=== PATIENT | male | born 1955 | race Caucasian/White ===

== ENCOUNTER 2017-04-23 10:11 | Outpatient (RCR) | payer OTHER, MEDICARE, SELFPAY ==
[2017-04-23 12:12] LABS: Absolute Lymphocyte Count 1.47 X10^3/ul (0.83-4.51); Basophil# 0.01 X10^3/uL; Basophil% 0.2 % (0-1); Eosinophil# 0.12 X10^3/uL; Eosinophils% 2.2 % (0-5); Hematocrit 44.1 % (40-54); Lymphocyte # 1.47 X10^3/ul (4.0); Lymphocyte % 27.4 % (19-41); Mean Corp Hgb Conc 31.7 g/gl (32-36); Mean Corpuscular Hgb 31.6 pg (27.0-32.0); Mean Corpuscular Volume 99.5 fL (80-94); Mean Platelet Vol. 10.4 fl (6.2-12.0); Monocyte# 0.75 X10^3/uL; Platelet Count 146 K/mm3 (150-450); RBC Distribution Width CV 13.2 % (11.6-14.6); RBC Distribution Width SD 48.1 fl (35.1-43.9); Red Blood Count 4.43 M/mm3 (4.6-6.2); White Blood Count 5.4 K/mm3 (4.4-11.0)
[2017-04-23 12:20] LABS: POSITIVE COUNT NO; POSITIVE DIFFERENTIAL NO; POSITIVE MORPHOLOGY NO
[2017-04-23 12:53] LABS: ALB/GLOB Ratio 1.1 RATIO (0.9-2.4); AST(SGOT) 48 U/L (15-37); Alanine Aminotransfer ALT/SGPT 72 U/L (16-61); Albumin, Serum 3.5 g/dL (3.2-5.0); Alkaline Phosphatase 76 U/L (45-117); Anion Gap 9 (5-15); BUN 16 mg/dL (7-18); Calcium,Total 8.5 mg/dL (8.5-10.1); Chloride 109 mmol/L (98-107); EST Glomerular Filtration Rate 81 mL/min (>60); Est Glom Filt Rate - Afr Amer 98 mL/min (>60); Globulin 3.3 g/dL (2.2-4.2); Glucose 91 mg/dL (74-106); Potassium 4.4 mmol/L (3.5-5.1); Protein, Total 6.8 g/dL (6.4-8.2); Sodium Level 141 mmol/L (136-145)
== END 2017-04-23 11:00 | disposition home or self-care (01) ==
LOC: MTLAB 10:11
PROVIDERS: Family Provider Family Medicine; PCP Family Medicine
DX: C83.10 Mantle cell lymphoma, unspecified site (principal)
CPT/HCPCS: 36415; 80053; 85025

== ENCOUNTER → 2018-01-26 08:20 | Outpatient (CLI) | payer OTHER, MEDICARE, SELFPAY ==
[2018-01-26 10:49] LABS: Absolute Lymphocyte Count 1.74 X10^3/ul (0.83-4.51); Basophil# 0.02 X10^3/uL; Basophil% 0.4 % (0-1); Eosinophil# 0.08 X10^3/uL; Eosinophils% 1.4 % (0-5); Hematocrit 43.1 % (40-54); Hemoglobin 14.6 g/dl (13.0-16.5); Lymphocyte # 1.74 X10^3/ul (4.0); Lymphocyte % 31.5 % (19-41); Mean Corp Hgb Conc 33.9 g/gl (32-36); Mean Corpuscular Hgb 33.1 pg (27.0-32.0); Mean Corpuscular Volume 97.7 fL (80-94); Mean Platelet Vol. 10.4 fl (6.2-12.0); Monocyte# 0.63 X10^3/uL; Monocyte% 11.4 % (0-10); Neutrophil # 3.04 X10^3/uL (2.7-7.7); Neutrophil % 54.9 % (47-70); Platelet Count 147 K/mm3 (150-450); RBC Distribution Width CV 12.6 % (11.6-14.6); RBC Distribution Width SD 45.3 fl (35.1-43.9); Red Blood Count 4.41 M/mm3 (4.6-6.2); White Blood Count 5.5 K/mm3 (4.4-11.0)
[2018-01-26 10:54] LABS: POSITIVE COUNT NO; POSITIVE DIFFERENTIAL NO; POSITIVE MORPHOLOGY NO
[2018-01-26 11:14] LABS: ALB/GLOB Ratio 1.1 RATIO (0.9-2.4); AST(SGOT) 48 U/L (15-37); Alanine Aminotransfer ALT/SGPT 82 U/L (16-61); Albumin, Serum 3.6 g/dL (3.2-5.0); Alkaline Phosphatase 66 U/L (45-117); Anion Gap 7 (5-15); BUN 13 mg/dL (7-18); BUN/Creat Ratio 10.8 RATIO (10-20); Calcium,Total 8.6 mg/dL (8.5-10.1); Chloride 108 mmol/L (98-107); Cholesterol 156 mg/dL (200); EST Glomerular Filtration Rate 66 mL/min (>60); Est Glom Filt Rate - Afr Amer 79 mL/min (>60); Globulin 3.4 g/dL (2.2-4.2); Glucose 91 mg/dL (74-106); High Density Lipoprotein 30 mg/dL; PSA,Total - Annual Screen 0.46 ng/mL (0.00-4.00); Potassium 4.2 mmol/L (3.5-5.1); Sodium Level 140 mmol/L (136-145); Triglycerides 175 mg/dL; Very Low Density Lipoprotein 35 mg/dL (5-40)
--- OUTSIDE RECORDS SUMMARY | 2018-03-14 03:32 | XMS RPT_ITS ---
:1955 Author Organization OH[facility] Care Team Providers Name Role Phone Veto Lopez Attending Unavailable Veto Lopez Referring Unavailable Veto Lopez Primary Care Unavailable HOMERO NARVAEZ Attending Unavailable HOMERO NARVAEZ Referring Unavailable David Lopez Primary Care Unavailable HOMERO NARVAEZ Attending Unavailable HOMERO NARVAEZ Referring Unavailable David Lopez Primary Care Unavailable PROBLEMS PROBLEMS DATE TYPE CONDITION / CODE ATTENDING STATUS SOURCE 01/26/2018 Unknown Z00.00 - Veto Lopez Active [place] Encounter for [facility] medical Repository examination without abnormal findings / Z00.00(ICD-10) 01/26/2018 Unknown Z12.5 - Encounter Veto Lopez Active [place] for screening for [facility] neoplasm of Repository prostate / Z12.5(ICD-10) PROCEDURES PROCEDURES No Procedure Records FoundRESULTS RESULTS CBC W/DIFF, AUTOMATED Collected: 01/26/2018 Status: F Source: [place] 8:30 AM [facility] [place] CODE TESTS RESULT OUT OF RANGE REFERENCE UNITS LAB L100.1000 4.4-11.0 K/mm3 Normal WBC 5.5 LAB L100.1200 4.6-6.2 M/mm3 Low RBC 4.41 LAB L100.1300 13.0-16.5 g/dl Normal HGB 14.6 LAB L100.1400 40-54 % Normal HCT 43.1 LAB L100.1500 80-94 fL High MCV 97.7 LAB L100.1600 27.0-32.0 pg High MCH 33.1 LAB L100.1700 32-36 g/gl Normal MCHC 33.9 LAB L100.1810 11.6-14.6 % Normal RDW CV 12.6 LAB L100.1820 35.1-43.9 fl High RDW SD 45.3 LAB L100.1900 150-450 K/mm3 Low PLT 147 LAB L100.2000 6.2-12.0 fl Normal MPV 10.4 LAB L100.2100 47-70 % Normal NEUT% 54.9 LAB L100.2200 19-41 % Normal LY% 31.5 LAB L100.2300 0-10 % High MONO% 11.4 LAB L100.2400 0-5 % Normal EO% 1.4 LAB L100.2500 0-1 % Normal BASO% 0.4 LAB L100.2550 0.0-0.9 % Normal IM GRAN % 0.400 Result Comment: IG% - Immature Granulocytes (promyelocytes, myelocytes and metamyelocytes) > 1% indicates that a LEFT SHIFT is Present. LAB L100.2620 2.0-7.7 X10 3/uL Normal Absolute Neut 3.0 LAB L100.2720 0.83-4.51 X10 3/ul Normal Absolute Lymph 1.74 Performed By: #### L100.0100 #### [facility] [address] [place], [address] COMPREHENSIVE METABOLIC Collected: 01/26/2018 Status: F Source: [facility] 8:30 AM [facility] [place] CODE TESTS RESULT OUT OF RANGE REFERENCE UNITS LAB L501.0100 74-106 mg/dL Normal GLU 91 Result Comment: Please note revised GLUCOSE reference range effective 2017. LAB L501.1000 7-18 mg/dL Normal BUN 13 LAB L501.1100 0.70-1.30 mg/dL Normal CREAT,SERUM 1.20 Result Comment: The validity of the calculated GFR AND GFRAA in patients over 70 years has not been determined. Clinical correlation is essential. LAB L501.1110 >60 mL/min Normal EST GFR 66 Result Comment: Non- GFR Calc LAB L501.1115 >60 mL/min Normal EST GFR - AA 79 Result Comment: GFR Calc LAB L501.1300 10-20 RATIO Normal BUN/CRE 10.8 LAB L501.1500 6.4-8.2 g/dL T Normal PROT 7.0 LAB L501.1800 3.2-5.0 g/dL Normal ALB 3.6 LAB L501.1950 2.2-4.2 g/dL Normal GLOB 3.4 LAB L501.2000 0.9-2.4 RATIO Normal A/G 1.1 LAB L501.2200 8.5-10.1 mg/dL CA Normal 8.6 LAB L501.4100 15-37 U/L High AST 48 LAB L501.4305 45-117 U/L Normal ALK P 66 LAB L501.4405 16-61 U/L High ALT 82 LAB L501.4600 0.20-1.00 mg/dL T Normal BILI 0.70 LAB L501.5300 136-145 mmol/L NA Normal 140 LAB L501.5600 3.5-5.1 mmol/L K Normal 4.2 LAB L501.5900 98-107 mmol/L High CL 108 LAB L501.6100 21.0-32.0 mmol/L Normal CO2 25.0 LAB L501.6200 5-15 Normal GAP 7 Performed By: #### L500.4050, L500.4100, L501.9910 #### [facility] [address] [place], [address] LIPID PROFILE Collected: 01/26/2018 Status: F Source: [place] 8:30 AM [facility] [place] CODE TESTS RESULT OUT OF RANGE REFERENCE UNITS LAB L501.4900 200 mg/dL Normal CHOL 156 Result Comment: <200 mg/dL Desirable 200-240 mg/dL Borderline >240 mg/dL High Risk LAB L501.5000 mg/dL Normal TRIG 175 Result Comment: The drugs N-Acetylcysteine and Metamizole may falsely depress this assay. Serum Triglycerides Reference Interval Normal <150 mg/dL Borderline high 150 - 199 mg/dL High 200 - 499 mg/dL Very High > or = 500 mg/dL LAB L501.6400 mg/dL Low HDL 30 Result Comment: The drugs N-Acetylcysteine and Metamizole may falsely depress this assay. Reference Range HDL <40 mg/dL Low HDL Cholesterol HDL >or= 60 mg/dL High HDL Cholesterol LAB L501.6500 0-130 mg/dL Normal LDL 91 LAB L501.6600 5-40 mg/dL Normal VLDL 35 Performed By: #### L500.4050, L500.4100, L501.9910 #### [facility] [address] [place], [address] PSA,TOTAL - ANNUAL Collected: 01/26/2018 Status: F Source: [place] SCRE[facility] 8:30 AM [facility] [place] CODE TESTS RESULT OUT OF RANGE REFERENCE UNITS LAB L501.9910 0.00-4.00 ng/mL Normal PSA,TOT 0.46 SCREEN Result Comment: This test was performed using the TPSA assay method for the [employer] chemistry system. Values obtained with different assay methods cannot be used interchangably. When changing PSA assays in the course of monitoring a patient, additional sequential testing should be carried out to confirm baseline values. Performed By: #### L500.4050, L500.4100, L501.9910 #### [facility] [address] [place], [address] CBC W/DIFF, AUTOMATED Collected: 04/23/2017 Status: F Source: [place] 10:20 AM [facility] [place] CODE TESTS RESULT OUT OF RANGE REFERENCE UNITS LAB L100.1000 4.4-11.0 K/mm3 Normal WBC 5.4 LAB L100.1200 4.6-6.2 M/mm3 Low RBC 4.43 LAB L100.1300 13.0-16.5 g/dl Normal HGB 14.0 LAB L100.1400 40-54 % Normal HCT 44.1 LAB L100.1500 80-94 fL High MCV 99.5 LAB L100.1600 27.0-32.0 pg Normal MCH 31.6 LAB L100.1700 32-36 g/gl Low MCHC 31.7 LAB L100.1810 11.6-14.6 % Normal RDW CV 13.2 LAB L100.1820 35.1-43.9 fl High RDW SD 48.1 LAB L100.1900 150-450 K/mm3 Low PLT 146 LAB L100.2000 6.2-12.0 fl Normal MPV 10.4 LAB L100.2100 47-70 % Normal NEUT% 56.0 LAB L100.2200 19-41 % Normal LY% 27.4 LAB L100.2300 0-10 % High MONO% 14.0 LAB L100.2400 0-5 % Normal EO% 2.2 LAB L100.2500 0-1 % Normal BASO% 0.2 LAB L100.2550 0.0-0.9 % Normal IM GRAN % 0.200 Result Comment: IG% - Immature Granulocytes (promyelocytes, myelocytes and metamyelocytes) > 1% indicates that a LEFT SHIFT is Present. LAB L100.2620 2.0-7.7 X10 3/uL Normal Absolute Neut 3.0 LAB L100.2720 0.83-4.51 X10 3/ul Normal Absolute Lymph 1.47 Performed By: #### L100.0100 #### [facility] [address] [place], [address] COMPREHENSIVE METABOLIC Collected: 04/23/2017 Status: F Source: [facility] 10:20 AM [facility] [place] CODE TESTS RESULT OUT OF RANGE REFERENCE UNITS LAB L501.0100 74-106 mg/dL Normal GLU 91 Result Comment: Please note revised GLUCOSE reference range effective 2017. LAB L501.1000 7-18 mg/dL Normal BUN 16 LAB L501.1100 0.70-1.30 mg/dL Normal CREAT,SERUM 1.00 Result Comment: The validity of the calculated GFR AND GFRAA in patients over 70 years has not been determined. Clinical correlation is essential. LAB L501.1110 >60 mL/min Normal EST GFR 81 Result Comment: Non- GFR Calc LAB L501.1115 >60 mL/min Normal EST GFR - AA 98 Result Comment: GFR Calc LAB L501.1300 10-20 RATIO Normal BUN/CRE 16.0 LAB L501.1500 6.4-8.2 g/dL T Normal PROT 6.8 LAB L501.1800 3.2-5.0 g/dL Normal ALB 3.5 LAB L501.1950 2.2-4.2 g/dL Normal GLOB 3.3 LAB L501.2000 0.9-2.4 RATIO Normal A/G 1.1 LAB L501.2200 8.5-10.1 mg/dL CA Normal 8.5 LAB L501.4100 15-37 U/L High AST 48 LAB L501.4305 45-117 U/L Normal ALK P 76 LAB L501.4405 16-61 U/L High ALT 72 Result Comment: Please note revised ALT reference range effective 2017. LAB L501.4600 0.20-1.00 mg/dL Normal T BILI 0.60 LAB L501.5300 136-145 mmol/L Normal NA 141 LAB L501.5600 3.5-5.1 mmol/L Normal K 4.4 LAB L501.5900 98-107 mmol/L High CL 109 LAB L501.6100 21.0-32.0 mmol/L Normal CO2 23.0 LAB L501.6200 5-15 Normal GAP 9 Performed By: #### L500.4050 #### [facility] [address] [place], [address] ALLERGIES ALLERGIES DATE TYPE / CODE NAME / CODE REACTION SEVERITY SOURCE 01/01/2016 Drug adhesive Rash Unknown [facility] Allergy/416 tape/[id number] Hospital 495888(SN (RXNORM) Repository ED CT) 06/12/2015 Drug aspirin/[id number] Upset Stomach Unknown [facility] Allergy/416 587(RXNO) [facility] 042610(SNOM Repository ED CT) 06/12/2015 Drug amoxicillin/F00 Rash Unknown [facility] Allergy/789 9097139(RXNO) [facility] 169539(SNOM Repository ED CT) 06/12/2015 Drug levofloxacin/F0 Rash Unknown [facility] Allergy/416 [id number]([facility] 875797(SNOM ) Repository ED CT) 02/28/2013 Drug Penicillins/F00 Upset Stomach Unknown [facility] Allergy/205 1537063([facility] 257003(SN Repository ED CT) ENCOUNTERS ENCOUNTERS ADMIT/DISCHARGE ACCOUNT ADMITTING ENCOUNTER LOCATION SOURCE NUMBER CLASS 01/26/[id number] ing:MTLAB Repository 05/17/2017 [id number] Ambulatory [place] [place] [facility] ing:MTLAB Repository 04/23/2017/ [id number] Ambulatory [place] [facility] [place] [facility] [address] 8 [facility] ing:MTLAB Repository PAYERS PAYERS ENCOUNTER GUARANTOR PAYER SUBSCRIBER SOURCE 01/26/2018 EZRA A Primary PANDA R [place] [id number] Insurance:MEDICAL OSWALDDOB: [facility] [id number] Number: Repository [address]Jvb: 330 [id number] [phone] (HP) Date:1340-91-06[address] [place] [id number]: 01/26/2018 Secondary EZRA A [place] Insurance:MEDICARE OSWALDDOB: [facility] [id number] Hospital Number: Repository [id number] Date:2018-01-26 01/26/2018 Tertiary NOT GIVENUNK [place] Insurance:SELF PAY [facility] Number: Effective Repository Date:2018-01-26 05/17/2017 Ezra A Primary PANDA R [place] [id number] Insurance:MEDICAL OSWALDDOB: [facility] [id number] Number: Repository [id number]: [id number] [phone] Date:[id number] () [address] [place] [phone]: 05/17/2017 Secondary Ezra A [place] Insurance:MEDICARE OswaldDOB: [facility] [id number] Hospital Number: Repository [id number] Date:2017-04-23 05/17/2017 Tertiary NOT GIVENUNK [place] Insurance:SELF PAY [facility] Number: Effective Repository Date:2017-05-17 04/23/2017 Ezra A Primary PANDA R [place] [id number] Insurance:MEDICAL OSWALDDOB: [facility] [id number] Number: Repository [id number]: [id number] [phone] Date:[id number] [address], [place] [address]IT: 04/23/2017 Secondary Ezra A [place] Insurance:MEDICARE OswaldDOB: [facility] [id number] Hospital Number: Repository [id number] Date:2017-04-23 04/23/2017 Tertiary NOT GIVENUNK [place] Insurance[facility]LF [facility] Effective Repository Date:2017-04-23
== END ==
PROVIDERS: Family Provider Family Medicine; PCP Family Medicine; Referring Provider Family Medicine; Visit Provider Family Medicine
DX: Z00.00 Encounter for general adult medical examination without abnormal findings (principal); Z12.5 Encounter for screening for malignant neoplasm of prostate
CPT/HCPCS: 36415; 80053; 80061; 84153; 85025; G0103

== ENCOUNTER 2018-08-12 16:44 | Observation (INO) | payer OTHER, MEDICARE, SELFPAY ==
[2018-08-12] VITALS (10 sets, daily range): BP systolic 150–185; BP diastolic 67–115; PULSE 86–111; RESP 16–19; TEMP 36.7–37.4; O2SAT 98–100; BMI 36.3; BMI 35.0
--- NOTE | 2018-08-12 16:46 | NURSING ---
NO OLD EKGS
--- NOTE | 2018-08-12 16:54 | EKG12_ITS ---
Test Reason : STROKE Blood Pressure : / mmHG Vent. Rate : 107 BPM Atrial Rate : 107 BPM P-R Int : 156 ms QRS Dur : 082 ms QT Int : 316 ms P-R-T Axes : 022 055 076 degrees QTc Int : 421 ms Sinus tachycardia Nonspecific ST and T wave abnormality Abnormal ECG Confirmed by CAROLINE HER, ALEXIS ([id number]), health editor TRIXIE RAMON ([id number]) on 08/15/2018 1:23:39 PM Referred By: GIUSEPPE Confirmed By:ALEXIS VELAZQUEZ MD
--- NOTE | 2018-08-12 16:54 | CT_ITS ---
STUDY: CT BRAIN WITHOUT CONTRAST REASON FOR EXAM: Male, 62 years old. Aphasia, dysarthria RADIATION DOSAGE (If Supplied By Facility): CTDIvol = ( 44.99 ) mGy, DLP = ( 880.47 ) mGycm TECHNIQUE: Transaxial CT imaging of the brain was performed without administration of intravenous contrast material. Individualized dose optimization techniques were used for this CT. COMPARISON: No relevant priors. FINDINGS: Normal soft tissue structures. Normal calvarium. Normal size ventricles and extra-axial spaces for the patient's age. Normal white matter tracts of the cerebral hemispheres. Normal basal ganglia and thalami. Normal brainstem. Normal cerebellum. There is no intracranial hemorrhage. There are no findings of an acute ischemic infarction. Normal visualized paranasal sinuses. CT/Brain/Head without Contrast IMPRESSION: Normal unenhanced CT scan of the brain. N.B. : The above information has been verbally conveyed by Dg Delaney MD to Ijeoma Restrepo on 08/12/2018 17:18:25 (ET). Electronically Signed: Dg Delaney MD at 17:16 EDT Tel , Service support ,
--- NOTE | 2018-08-12 16:59 | NURSING ---
STROKE ALERT CALLED
--- NOTE | 2018-08-12 17:06 | RAD_ITS ---
STUDY: X-RAY CHEST REASON FOR EXAM: Male, 62 years old. Weakness TECHNIQUE: Single AP portable view of the chest. COMPARISON: 08/23/2015 FINDINGS: The lungs are clear and expanded. There is no demonstrated pleural abnormality. Normal size heart. Normal mediastinum and hollie. Normal visualized pulmonary arteries. Normal visualized aortic arch and descending thoracic aorta. Normal visualized thoracic spine. Normal visualized ribs, clavicles, and shoulders. There is no demonstrated abnormality of the visualized soft tissue structures of the upper abdomen. RAD/Chest 1 View IMPRESSION: Normal x-ray examination of the chest. Electronically Signed: Dg Delaney MD at 17:21 EDT Tel , Service support ,
[2018-08-12] MEDS: 0.9% Normal Saline 1,000 ML 100 ML IV ×2 (17:21→20:36)
[2018-08-12 17:30] LABS: Absolute Lymphocyte Count 1.78 X10^3/ul (0.83-4.51); Absolute Neutrophil Count 4.9 X10^3/uL (2.0-7.7); Basophil# 0.03 X10^3/uL; Basophil% 0.4 % (0-1); Eosinophil# 0.27 X10^3/uL; Eosinophils% 3.5 % (0-5); Hematocrit 44.6 % (40-54); Hemoglobin 14.4 g/dl (13.0-16.5); Lymphocyte # 1.78 X10^3/ul (4.0); Mean Corp Hgb Conc 32.3 g/gl (32-36); Mean Corpuscular Hgb 30.9 pg (27.0-32.0); Mean Corpuscular Volume 95.7 fL (80-94); Mean Platelet Vol. 9.6 fl (6.2-12.0); Monocyte# 0.71 X10^3/uL; Monocyte% 9.2 % (0-10); Neutrophil # 4.92 X10^3/uL (2.7-7.7); Neutrophil % 63.6 % (47-70); Platelet Count 182 K/mm3 (150-450); RBC Distribution Width CV 13.7 % (11.6-14.6); Red Blood Count 4.66 M/mm3 (4.6-6.2); White Blood Count 7.7 K/mm3 (4.4-11.0)
[2018-08-12 17:31] LABS: POSITIVE COUNT NO; POSITIVE DIFFERENTIAL NO; POSITIVE MORPHOLOGY NO
[2018-08-12 17:33] LABS: International Normalized Ratio 1.2; Prothrombin Time (Protime)PT. 14.7 SECONDS (11.7-14.9)
[2018-08-12 17:34] LABS: Partial Thromboplast Time 28.1 Seconds (24.1-36.2)
[2018-08-12 17:43] LABS: Anion Gap 5 (5-15); BUN 15 mg/dL (7-18); BUN/Creat Ratio 10.3 RATIO (10-20); Calcium,Total 9.1 mg/dL (8.5-10.1); Chloride 106 mmol/L (98-107); Creatinine, Serum 1.45 mg/dL (0.70-1.30); EST Glomerular Filtration Rate 53 mL/min (>60); Est Glom Filt Rate - Afr Amer 64 mL/min (>60); Estimated Creatinine Clearance 61.23 ml/min; Glucose 92 mg/dL (74-106); Potassium 4.3 mmol/L (3.5-5.1); Sodium Level 138 mmol/L (136-145)
--- NOTE | 2018-08-12 17:48 | CT_ITS ---
STUDY: CTA NECK WITH CONTRAST REASON FOR EXAM: Male, 62 years old. Expressive aphasia, dysarthria RADIATION DOSAGE (If Supplied By Facility): CTDIvol = ( 16.43 ) mGy, DLP = ( 832.90 ) mGycm TECHNIQUE: CT angiography with multi-detector data acquisition was performed from the aortic arch to the skull base following intravenous administration of 100ML IV Isovue 370. MIP images were reconstructed from the axial data set. Post-processing of the angiographic images was performed, with multiplanar reformation and 3D reconstruction. Individualized dose optimization techniques were used for this CT. COMPARISON: None. FINDINGS: AORTIC ARCH: There is a bovine origin of the great vessels arising from the aortic arch with a common origin of the brachiocephalic and left common carotid artery. Normal origin of the left subclavian artery. Normal origins of the brachiocephalic, left common carotid, and left subclavian arteries. RIGHT CAROTID ARTERIES: Normal right common carotid artery (CCA). There is mild atherosclerotic plaque formation with minimal narrowing of the right carotid bulb. There is mild atherosclerotic plaque formation of the origin of the right internal carotid artery with less than 50% cross sectional diameter stenosis. Normal visualized cervical portion of the right internal carotid artery. Normal origin of the right external carotid artery (ECA). LEFT CAROTID ARTERIES: Focal mild (30%) stenosis of the mid left common carotid artery. There is mild atherosclerotic plaque formation with minimal narrowing of the left carotid bulb. There is mild atherosclerotic plaque formation of the origin of the left internal carotid artery with less than 50% cross sectional diameter stenosis. Normal visualized cervical portion of the left internal carotid artery. Normal origin of the left external carotid artery (ECA). VERTEBRAL ARTERIES: Normal bilateral vertebral arteries. IMPRESSION: 1. Mild (20%) right carotid stenosis. 2. Focal mild (30%) stenosis of the mid left common carotid artery. 3. Mild (20%) left carotid stenosis at the bifurcation. 4. Patent vertebral arteries bilaterally. 5. Bovine arch. Electronically Signed: Dg Delaney MD at 18:43 EDT Tel , Service support , STUDY: CTA OF THE BRAIN REASON FOR EXAM: Male, 62 years old. Expressive aphasia, dysarthria. RADIATION DOSAGE (If Supplied By Facility): CTDIvol = ( 16.43 ) mGy, DLP = ( 832.90 ) mGycm TECHNIQUE: CT angiography was performed with a multi-detector CT scanner. Data acquisition was obtained from the skull base through the vertex following intravenous administration of 100ML IV Isovue 370. MIP images were reconstructed from the axial data set. Post-processing of the angiographic images was performed, with multiplanar reformation and 3D reconstruction. Individualized dose optimization techniques were used for this CT. COMPARISON: CT the head earlier today. FINDINGS: Normal bilateral petrous carotid arteries. There is calcified plaque formation of the right cavernous carotid artery, without a cross-sectional luminal stenosis. There is calcified plaque formation of the left cavernous carotid artery, without a cross-sectional luminal stenosis. Normal right A1 segments of the anterior cerebral artery. Normal left A1 segments of the anterior cerebral artery. Normal intact anterior communicating artery (ACOM). Normal bilateral A2 segments of the anterior cerebral arteries. Normal right M1 and M2 segments of the middle cerebral arteries, with a normal M1 bifurcation. Normal left M1 and M2 segments of the middle cerebral arteries, with a normal M1 bifurcation. Normal right posterior communicating artery (PCOM). Normal left posterior communicating artery (PCOM). Normal bilateral vertebral arteries. Normal basilar artery with a normal basilar bifurcation. The visualized bilateral superior cerebellar (SCA) arteries are normal. Normal bilateral P1, P2 and visualized P3 segments of the posterior cerebral arteries. There is no demonstrated aneurysm of the [place]. There is no demonstrated abnormality of the visualized brain. CT/CTA Head W/WO Contrast IMPRESSION: Normal [place] without a demonstrated aneurysm or hemodynamically significant stenosis. Electronically Signed: Dg Delaney MD at 18:45 EDT Tel , Service support ,
--- NOTE | 2018-08-12 17:48 | CT_ITS ---
STUDY: CTA NECK WITH CONTRAST REASON FOR EXAM: Male, 62 years old. Expressive aphasia, dysarthria RADIATION DOSAGE (If Supplied By Facility): CTDIvol = ( 16.43 ) mGy, DLP = ( 832.90 ) mGycm TECHNIQUE: CT angiography with multi-detector data acquisition was performed from the aortic arch to the skull base following intravenous administration of 100ML IV Isovue 370. MIP images were reconstructed from the axial data set. Post-processing of the angiographic images was performed, with multiplanar reformation and 3D reconstruction. Individualized dose optimization techniques were used for this CT. COMPARISON: None. FINDINGS: AORTIC ARCH: There is a bovine origin of the great vessels arising from the aortic arch with a common origin of the brachiocephalic and left common carotid artery. Normal origin of the left subclavian artery. Normal origins of the brachiocephalic, left common carotid, and left subclavian arteries. RIGHT CAROTID ARTERIES: Normal right common carotid artery (CCA). There is mild atherosclerotic plaque formation with minimal narrowing of the right carotid bulb. There is mild atherosclerotic plaque formation of the origin of the right internal carotid artery with less than 50% cross sectional diameter stenosis. Normal visualized cervical portion of the right internal carotid artery. Normal origin of the right external carotid artery (ECA). LEFT CAROTID ARTERIES: Focal mild (30%) stenosis of the mid left common carotid artery. There is mild atherosclerotic plaque formation with minimal narrowing of the left carotid bulb. There is mild atherosclerotic plaque formation of the origin of the left internal carotid artery with less than 50% cross sectional diameter stenosis. Normal visualized cervical portion of the left internal carotid artery. Normal origin of the left external carotid artery (ECA). VERTEBRAL ARTERIES: Normal bilateral vertebral arteries. IMPRESSION: 1. Mild (20%) right carotid stenosis. 2. Focal mild (30%) stenosis of the mid left common carotid artery. 3. Mild (20%) left carotid stenosis at the bifurcation. 4. Patent vertebral arteries bilaterally. 5. Bovine arch. Electronically Signed: Dg Delaney MD at 18:43 EDT Tel , Service support , STUDY: CTA OF THE BRAIN REASON FOR EXAM: Male, 62 years old. Expressive aphasia, dysarthria. RADIATION DOSAGE (If Supplied By Facility): CTDIvol = ( 16.43 ) mGy, DLP = ( 832.90 ) mGycm TECHNIQUE: CT angiography was performed with a multi-detector CT scanner. Data acquisition was obtained from the skull base through the vertex following intravenous administration of 100ML IV Isovue 370. MIP images were reconstructed from the axial data set. Post-processing of the angiographic images was performed, with multiplanar reformation and 3D reconstruction. Individualized dose optimization techniques were used for this CT. COMPARISON: CT the head earlier today. FINDINGS: Normal bilateral petrous carotid arteries. There is calcified plaque formation of the right cavernous carotid artery, without a cross-sectional luminal stenosis. There is calcified plaque formation of the left cavernous carotid artery, without a cross-sectional luminal stenosis. Normal right A1 segments of the anterior cerebral artery. Normal left A1 segments of the anterior cerebral artery. Normal intact anterior communicating artery (ACOM). Normal bilateral A2 segments of the anterior cerebral arteries. Normal right M1 and M2 segments of the middle cerebral arteries, with a normal M1 bifurcation. Normal left M1 and M2 segments of the middle cerebral arteries, with a normal M1 bifurcation. Normal right posterior communicating artery (PCOM). Normal left posterior communicating artery (PCOM). Normal bilateral vertebral arteries. Normal basilar artery with a normal basilar bifurcation. The visualized bilateral superior cerebellar (SCA) arteries are normal. Normal bilateral P1, P2 and visualized P3 segments of the posterior cerebral arteries. There is no demonstrated aneurysm of the [place]. There is no demonstrated abnormality of the visualized brain. CT/CTA Neck W/WO Contrast IMPRESSION: Normal [place] without a demonstrated aneurysm or hemodynamically significant stenosis. Electronically Signed: Dg Delaney MD at 18:45 EDT Tel , Service support ,
--- NOTE | 2018-08-12 18:36 | ED.VISSUMM ---
- ER Visit Summary Date of Service: 08/12/18 Chief Complaint: Speech difficulty History of Present Illness: The patient is a 62 M with history of lymphoma, reflux disease, pulmonary fibrosis. Patient reports decreased sensation to light touch on the left side of his face and difficulty getting his words out since 4 PM this afternoon. He denies any pain. He states he has chronic paresthesias to the left arm and leg that are unchanged. Physical Examination: Blood pressure on arrival is 183/115 with heart rate of 110. Patient sitting upright in bed no acute distress. Heart is tachycardic and regular. Lung sounds are clear. Abdomen is soft and nontender. Neuro exam reveals an NIH score of 2. He receives 1.4 decreased sensation to light touch in the left face. He receives one point for mild expressive aphasia. Test Results: EKG is sinus tach at 107. CBC and chemistry studies significant only for creatinine 1.45. Coags normal. Troponin less than 0.015. PTT on arrival is 107. Portable chest x-ray shows no acute findings. Noncontrast head CT is normal. CTA head is normal. CTA of the neck shows mild 20% right carotid artery stenosis. There is mild 30% stenosis of the left common carotid. Emergency Department Course and Treatment: I spoke with Dr. Lewis shortly after the patient's arrival. He asked that we be sure to get the CTA of the head and neck. If that did not show any acute findings patient was to be admitted and Dr. Lewis would see him in the hospital tomorrow. Blood pressure at this time is 149/94. Treatment Plan: [] Disposition: Admit Impression: TIA This note was generated with [employer] dictation software. It may contain incorrect words, spelling, and punctuation that were not noted in review of the chart prior to signing ED Disposition - Plan for ED Patient: Referrals: Veto Lopez DO [Primary Care Provider] -
--- NOTE | 2018-08-12 19:41 | PCM.HP.STD ---
Problem List (1) Personal history of lymphoma Status: Chronic Comment: Z85.72 (2) Lung fibrosis Status: Chronic (3) GERD (gastroesophageal reflux disease) Status: Chronic History of Present Illness Date of Admission: 08/12/18 Chief Complaint: Speech difficulty. The patient is a 62 year old M with past medical history as mentioned above presented to the emergency room because of speech difficulty. Symptoms started today around 4 PM when he was at home sitting on a chair, started having slurred speech, could not get the words out appropriately, associated with sensation of light touch on the left side of the face, lasted until he arrived to the ER and without aggravating or relieving factors. He did mention that he has chronic paresthesia to the left side of his body including his left upper and lower extremities which are unchanged. He denied blurred vision, focal arm or leg weakness. He denies chest pain or shortness of breath. After he arrived, patient himself and his thinking that his speech is improved but still not back to normal. In the emergency department, blood pressure was slightly elevated, other vital signs were stable. His NIH score was 2. He was not a candidate for TPA. His routine blood work was remarkable for creatinine of 1.45, otherwise normal. EKG revealed sinus tachycardia, no acute changes. Troponin is negative. Chest x-ray revealed mild cardiomegaly, no acute findings. CT scan brain without contrast showed no acute infarct or hemorrhage. CTA of the head showed no hemodynamically significant vascular disease or stenosis. CTA neck reveals mild 20% right carotid stenosis, 30% stenosis of the left common carotid. He is being admitted for TIA for evaluation. 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 Allergies adhesive tape Allergy (Verified 08/12/18 16:46) Rash amoxicillin Allergy (Verified 08/12/18 16:46) Rash levofloxacin Allergy (Verified 08/12/18 16:46) Rash Penicillins Allergy (Verified 08/12/18 16:46) Upset Stomach aspirin Adverse Reaction (Verified 08/12/18 16:46) Upset Stomach Home Medications: Ambulatory Orders Medication Instructions Recorded Calcium Carb,Gluc/Mag Ox,Gluc 2 each PO DAILY 02/28/13 [Calcium Magnesium Caplet] Green Tea/Hoodia Gordonii [Sv 1 each PO BID 02/28/13 Green Tea Plus Hoodia Cap] Pantoprazole Sodium [Protonix] 40 mg PO DAILY 02/28/13 Ubidecarenone [Co Q-10] 200 mg PO DAILY 02/28/13 Cholecalciferol (Vitamin D3) 2,000 unit PO DAILY 07/28/13 [Vitamin D] [place]-3/Dha/Epa/Fish Oil [Fish Oil 500 mg PO BID 07/28/13 Dr 500 mg Softgel] Vitamin B Complex 1 each PO DAILY 07/28/13 Magenesia Phos 1 - 2 po.syringe SL QHS 01/02/16 L. Acidophilus/Pectin, [place] 1 each PO BID #30 tablet 01/03/16 [Acidophilus-Pectin Captab] Surgical History: - - Back surgery, wrist surgery a scope. 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 Dyspnea, Syncope Respiratory: Denies: Cough, Hemoptysis, Pleuritic Pain, Shortness of Breath, Sputum production, Wheezing Gastrointestinal: Denies: Abdominal Pain, Constipation, Diarrhea, Nausea, Vomiting Genitourinary: Denies: Dysuria, Frequency, Hematuria Musculoskeletal: Denies: Arm Pain, Back Pain, Foot Pain Skin: Denies: Dryness, Rash Neurological: Reports: Change in Speech, Slurred speech, Numbness, Tingling. Denies: Balance problems, Blurred vision, Double vision, Confusion, Focal weakness, Headaches, Incoordination Psychiatric: Denies: Anxiety, Depression Endocrine: Denies: Change in Body Habitus, Polydipsia, Polyuria VTE Information - Inpt Only VTE Present on Admission: No VTE Mechan Device Prophylaxis: None VTE Pharm Prophylaxis ordered?: Yes - Physical Exam General: Alert, Oriented x3, Cooperative, No apparent distress HEENT: Atraumatic, PERRLA, EOMI, Normocephalic Oral: Moist Mucosa, No Gingival or Mucosal Lesions/ Ulcerations Neck: Supple, No JVD, Negative Carotid Bruits, Trachea Midline, Thyroid Normal Size and Texture Lungs: Clear to auscultation, Normal air movement, No rhonchi, No wheeze, No rales, Diminished Cardiovascular: Regular rate, Regular Rhythm, Normal S1, Normal S2, No murmurs, PMI Normal Abdomen: Bowel Sounds Present, Soft, Non Tender, Non-Distended, No Hepato-splenomegaly, Obese Extremities: No clubbing, No cyanosis, No edema Skin: No rashes, No breakdown Lymphatic: No Cervical, Supraclavicular, or Inguinal Adenopathy Neurological: Cranial nerves II-XII grossly intact, Motor Exam 5/5 strength throughout Psych/Mental Status: Normal Affect, Appropriate, Alert and oriented to time, place, person, mood and affect Vital Signs Temp Pulse Resp BP Pulse Ox 99.4 F H 92 18 150/84 H 99 08/12/18 16:49 08/12/18 19:00 08/12/18 19:00 08/12/18 19:00 08/12/18 19:00 Oxygen Flow Rate (L/min) 2 Oxygen Delivery Method Nasal Cannula Weight: 275 lb 9.245 oz Body Mass Index (BMI) 36.3 Finger Stick Blood Glucose 107 Laboratory Tests Past 24 Hrs 08/12/18 08/12/18 08/12/18 17:15 17:15 17:15 WBC 7.7 RBC 4.66 Hgb 14.4 Hct 44.6 MCV 95.7 H MCH 30.9 MCHC 32.3 RDW 13.7 RDW Differential 48.0 H Plt Count 182 MPV 9.6 Immature Gran % (Auto) 0.300 Neut % (Auto) 63.6 Lymph % (Auto) 23.0 [place] % (Auto) 9.2 Eos % (Auto) 3.5 Baso % (Auto) 0.4 Absolute Neuts (auto) 4.9 Absolute Lymphs (auto) 1.78 Total Counted Not Reportable PT 14.7 INR 1.2 APTT 28.1 Sodium 138 Potassium 4.3 Chloride 106 Carbon Dioxide 27.0 Anion Gap 5 BUN 15 Creatinine 1.45 H Estim Creat Clear Calc 61.23 Est GFR (MDRD) Af Amer 64 Est GFR (MDRD) Non-Af 53 L BUN/Creatinine Ratio 10.3 Glucose 92 Calcium 9.1 Troponin I < 0.015 Clinical Impression(s) from Imaging Studies Brain CT 08/12/18 16:54 IMPRESSION: Normal unenhanced CT scan of the brain. N.B. : The above information has been verbally conveyed by Dg Delaney MD to Ijeoma Kaye on 08/12/2018 17:18:25 (ET). Electronically Signed: Dg Delaney MD at 17:16 EDT Tel , Service support , Chest X-Ray 08/12/18 17:06 IMPRESSION: Normal x-ray examination of the chest. Electronically Signed: Dg Delaney MD at 17:21 EDT Tel , Service support , Head CTA 08/12/18 17:48 IMPRESSION: Normal [place] without a demonstrated aneurysm or hemodynamically significant stenosis. Electronically Signed: Dg Delaney MD at 18:45 EDT Tel , Service support , Neck CTA 08/12/18 17:48 IMPRESSION: Normal [place] without a demonstrated aneurysm or hemodynamically significant stenosis. Electronically Signed: Dg Delaney MD at 18:45 EDT Tel , Service support , Assessment/Plan This is a 8 years old male patient presented to the emergency room because of difficulty speaking with left facial numbness and tingling and he is being admitted for TIA for evaluation. #1 difficulty speaking/mild transient expressive aphasia/probable TIA: CT scan brain showed no acute findings. CTA of the head was unremarkable. CTA of the neck revealed mild 20% right carotid stenosis and mild 30% stenosis of the mid left common carotid artery. EKG revealed sinus tachycardia, no acute ischemic changes or cardiac arrhythmias. His NIH score at the ED was 2, not candidate for TPA. Symptoms improved. Blood pressure slightly elevated. Plan: Admit to PCU for observation, cardiac monitoring, NIH stroke scale, start baby aspirin, Lipitor, MRI brain, 2D echocardiogram, neurology consult, allow permissive hypertension, PT OT evaluation and treatment. #2 dehydration: Admission creatinine is 1.45, baseline creatinine is normal. Plan for IV fluids, input output chart, repeat BMP tomorrow morning. #3 history of mantle cell lymphoma, status post chemotherapy and radiation, in remission. Stable. #4 GERD: Continue Protonix. #5 DVT prophylaxis: Subcu heparin. This note was generated with [employer] dictation software. It may contain incorrect words, spelling, and punctuation that were not noted in checking the note before signing. Code Visit OBSV E&M: 74368 Initial observation care L3
--- NOTE | 2018-08-12 20:09 | ECHOCS_ITS ---
Reason For Study: TIA/CVA Procedure This was a 2D Doppler, Color Flow transthoracic echocardiogram. The study was technically difficult. Contrast injection was performed. Exam performed portable in patient room. Left Ventricle Normal LV size. Left ventricular systolic function is normal. The estimated ejection fraction is 60 %. No evidence for diastolic dysfunction. No regional wall motion abnormalities noted. Right Ventricle Normal RV size. Normal systolic function. Atria Normal left atrium. Normal right atrium. No doppler evidence for ASD. Bubble contrast study negative for right to left interatrial shunt. Mitral Valve There is no mitral annular calcification. Normal mitral valve. Tricuspid Valve Normal tricuspid valve. Trivial tricuspid valve insufficiency. Unable to estimate RV systolic pressure/pulmonary artery pressure due to technically difficult study. Aortic Valve Trisinus/trileaflet aortic valve. Normal aortic valve. Pulmonic Valve The pulmonic valve is not well visualized. Great Vessels Normal sized aortic root. Pericardium/Pleural No pericardial effusion. Medication Diluted definity 3ml given slow IV push to enhance endocardial definition. Performed a rapid injection of agitated mix of 9 cc saline and 1cc air to assess for atrial septal defect. MMode/2D Measurements & Calculations LVIDd: 4.7 cm IVSd: 1.3 cm Ao root diam: 3.5 cm LVIDs: 3.1 cm LVPWd: 1.1 cm FS: 33.7 % LAV(MOD-bp): 48.8 ml LA A4 area: 16.8 cm2 RA A4 area: 10.9 cm2 LAV(MOD-bp) Indexed: 20.1 ml/m2 LAV(MOD-sp2): 46.7 ml LAV(MOD-sp4): 44.9 ml Time Measurements MV dec time: 0.20 sec Doppler Measurements & Calculations MV E max jaleel: 73.9 cm/sec Lat Peak E' Jaleel: 10.4 cm/sec Med Peak E' Jaleel: 8.4 cm/sec MV A max jaleel: 67.8 cm/sec E/E' lat: 7.1 E/E' med: 8.8 MV E/A: 1.1 MV V2 max: 84.7 cm/sec MV P1/2t max jaleel: 83.8 cm/sec Ao V2 max: 116.5 cm/sec MV max P.9 mmHg MV P1/2t: 70.0 msec Ao max P.4 mmHg MV V2 mean: 47.5 cm/sec MV dec slope: 350.8 cm/sec2 MV mean P.1 mmHg MV V2 VTI: 20.1 cm MVA(P1/2t): 3.1 cm2 LV V1 max: 87.7 cm/sec PA V2 max: 94.4 cm/sec LV V1 max P.1 mmHg Interpretation Summary The study was technically difficult. Contrast injection was performed. Left ventricular systolic function is normal. The estimated ejection fraction is 60 %. Trivial tricuspid valve insufficiency. Unable to estimate RV systolic pressure/pulmonary artery pressure due to technically difficult study. No evidence for diastolic dysfunction. Bubble contrast study negative for right to left interatrial shunt. Ordering Physician: Rubens Patel Referring Physician: Veto Lopez Performed By: Emiliano Montgomery RCS
[2018-08-12] MEDS: Atorvastatin Calcium 80 MG Tablet PO (21:39)
[2018-08-12] MEDS: Heparin Injection (Vial) 5,000 UNIT/ML VIAL 5000 UNIT SC (21:40)
[2018-08-12] MEDS: Pantoprazole Sodium 40 MG Tablet PO (21:40)
[2018-08-13] VITALS (7 sets, daily range): BP systolic 118–129; BP diastolic 66–69; PULSE 75–84; RESP 16; TEMP 36.7–36.9; O2SAT 96–98
[2018-08-13] MEDS: Acetaminophen 325 MG Tablet 650 MG PO (00:19)
[2018-08-13 07:33] LABS: Anion Gap 8 (5-15); BUN 14 mg/dL (7-18); Chloride 107 mmol/L (98-107); Cholesterol 104 mg/dL (200); Creatinine, Serum 1.17 mg/dL (0.70-1.30); EST Glomerular Filtration Rate 67 mL/min (>60); Est Glom Filt Rate - Afr Amer 82 mL/min (>60); Estimated Creatinine Clearance 78.06 ml/min; Glucose 80 mg/dL (74-106); High Density Lipoprotein 24 mg/dL; Potassium 4.4 mmol/L (3.5-5.1); Sodium Level 140 mmol/L (136-145); Triglycerides 153 mg/dL; Very Low Density Lipoprotein 31 mg/dL (5-40)
[2018-08-13] MEDS: Pantoprazole Sodium 40 MG Tablet PO (08:03)
[2018-08-13] MEDS: Heparin Injection (Vial) 5,000 UNIT/ML VIAL 5000 UNIT SC (08:03)
[2018-08-13] MEDS: Aspirin 81 MG TAB.CHEW PO (08:03)
--- NOTE | 2018-08-13 10:00 | MRI_ITS ---
STUDY: MRI BRAIN WITHOUT CONTRAST REASON FOR EXAM: Male, 62 years old. Episode of a seizure. TECHNIQUE: Standardized multiplanar fat and water weighted pulse sequences were obtained. COMPARISON: [address] head FINDINGS: There is mild cerebral atrophy with widening of the extra-axial spaces and ventricular dilatation. There are multiple white matter hyperintensities, distributed throughout the deep white matter tracts of the cerebral hemispheres, consistent with moderate chronic white matter ischemic changes. There is no evidence for recent intracranial ischemia or other cause of cytotoxic edema on diffusion weighted imaging (DWI). Normal T2* images of the brain without demonstrated susceptibility artifact. There is no demonstrated hemosiderin stain. Normal bilateral basal ganglia. Normal thalami. There is no extra-axial fluid accumulation. Normal flow voids within the major intracranial circulation suggesting patency by spin echo criteria. Normal sella turcica, pituitary gland, infundibular stalk, optic chiasm and hypothalamus. Normal tectal plate and pineal gland. Normal midbrain, edward and medulla. Normal cerebellum. Normal basal cisterns. Normal bilateral temporal bones. Normal bilateral internal auditory canals. No demonstrated orbital abnormality, within the constraints of a routine brain study. Normal visualized paranasal sinuses. Normal calvarium and skull base. Normal visualized soft tissue structures. Normal visualized upper cervical spine. Left mastoid effusion is present. MRI/Brain without Contrast IMPRESSION: Senescent changes as above with no evidence of acute intracranial bleed, mass or ischemia. Left mastoid effusion, clinically correlate for congestive versus inflammatory process. Electronically Signed: Derick Samaniego DO at 11:02 EDT , Service support ,
--- NOTE | 2018-08-13 10:27 | CON.PCM_ITS ---
Problem List (1) Speech disturbance Status: Acute (2) TIA (transient ischemic attack) Status: Acute Reason for Consult Date of Consultation: 08/13/18 Reason for Consultation: Speech disturbances, paresthesias History of Present Illness: The patient is a 62 year old M with PMH history of lymphoma status post chemo and radiation, neuropathy, lung fibrosis, GERD, chronic left-sided paresthesias admitted with acute onset speech disturbances. 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 Per patient he lives with his , does not drive, denies any falls, and does not need any assistance with this ADLs. Per patient he does not take any aspirin at baseline. Per patient at present his speech is at baseline. Per patient his oncologist is at [place], and he was recently told in May that he may have 2 small lymph nodes following CT of the abdomen (records of which are not available with me at present). CTA head/neck done on admission reported to show mild 20% right carotid stenosis and left carotid stenosis at bifurcation and no hemodynamically significant stenosis or occlusion. 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 Allergies adhesive tape Allergy (Verified 08/12/18 16:46) Rash amoxicillin Allergy (Verified 08/12/18 16:46) Rash levofloxacin Allergy (Verified 08/12/18 16:46) Rash Penicillins Allergy (Verified 08/12/18 16:46) Upset Stomach aspirin Adverse Reaction (Verified 08/12/18 16:46) Upset Stomach Home Medications: Ambulatory Orders Medication Instructions Recorded Calcium Carb,Gluc/Mag Ox,Gluc 2 each PO DAILY 02/28/13 [Calcium Magnesium Caplet] Green Tea/Hoodia Gordonii [Sv 1 each PO BID 02/28/13 Green Tea Plus [place]ia Cap] Pantoprazole Sodium [Protonix] 40 mg PO DAILY 02/28/13 Ubidecarenone [Co Q-10] 200 mg PO DAILY 02/28/13 Cholecalciferol (Vitamin D3) 2,000 unit PO DAILY 07/28/13 [Vitamin D] [place]-3/Dha/Epa/Fish Oil [Fish Oil 500 mg PO BID 07/28/13 Dr 500 mg Softgel] Vitamin B Complex 1 each PO DAILY 07/28/13 Magenesia Phos 1 - 2 po.syringe SL QHS 01/02/16 L. Acidophilus/Pectin, [place] 1 each PO BID #30 tablet 01/03/16 [Acidophilus-Pectin Captab] Surgical History: - - Back surgery, wrist surgery a scope. surgery with his mantle cell lymphoma Lives: Spouse/ Significant Other Smoking Status: Former smoker Alcohol: None Drugs: None - *Family History Maternal History Items: No pertinent history Paternal History Items: Cancer, Diabetes, - - Thyroid disease Review of Systems Constitutional: Reports: - - Complete ROS negative except as documented in HPI Patient Problems: Active and Suspected Problems Speech disturbance (Acute) TIA (transient ischemic attack) (Acute) - Physical Exam General: Alert HEENT: Normocephalic Neck: Supple Lungs: Normal air movement Cardiovascular: Normal S1, Normal S2 Abdomen: Bowel Sounds Present Extremities: No cyanosis Neurological: - - Conscious, alert, CN II through XII grossly intact, power 5/5 both upper and lower extremities, no sensory loss except chronic left mild paresthesias, no cerebellar signs, no aphasia/dysarthria, gait deferred, reflexes + B/L B/S/T/K/A, NIHSS 0 at present, mRS 1 at baseline Psych/Mental Status: Normal Affect Vital Signs Temp Pulse Resp BP Pulse Ox 98.1 F 79 16 129/69 H 97 08/13/18 07:58 08/13/18 07:58 08/13/18 07:58 08/13/18 07:58 08/13/18 07:58 Oxygen Flow Rate (L/min) 2 Oxygen Delivery Method Room Air Weight: 123.8 kg Body Mass Index (BMI) 35.0 Finger Stick Blood Glucose 107 Intake and Output for Last 24 Hours 08/11/18 08/12/18 08/13/18 23:59 23:59 23:59 Intake Total 720 / 720 653 / 653 Balance 720 / 720 653 / 653 Laboratory Tests Past 24 Hrs 08/12/18 08/12/18 08/12/18 17:15 17:15 17:15 WBC 7.7 RBC 4.66 Hgb 14.4 Hct 44.6 MCV 95.7 H MCH 30.9 MCHC 32.3 RDW 13.7 RDW Differential 48.0 H Plt Count 182 MPV 9.6 Immature Gran % (Auto) 0.300 Neut % (Auto) 63.6 Lymph % (Auto) 23.0 [place] % (Auto) 9.2 Eos % (Auto) 3.5 Baso % (Auto) 0.4 Absolute Neuts (auto) 4.9 Absolute Lymphs (auto) 1.78 Total Counted Not Reportable PT 14.7 INR 1.2 APTT 28.1 Sodium 138 Potassium 4.3 Chloride 106 Carbon Dioxide 27.0 Anion Gap 5 BUN 15 Creatinine 1.45 H Estim Creat Clear Calc 61.23 Est GFR (MDRD) Af Amer 64 Est GFR (MDRD) Non-Af 53 L BUN/Creatinine Ratio 10.3 Glucose 92 Calcium 9.1 Troponin I < 0.015 Triglycerides Cholesterol LDL Cholesterol VLDL Cholesterol HDL Cholesterol 08/13/18 06:18 WBC RBC Hgb Hct MCV MCH MCHC RDW RDW Differential Plt Count MPV Immature Gran % (Auto) Neut % (Auto) Lymph % (Auto) [place] % (Auto) Eos % (Auto) Baso % (Auto) Absolute Neuts (auto) Absolute Lymphs (auto) Total Counted PT INR APTT Sodium 140 Potassium 4.4 Chloride 107 Carbon Dioxide 25.0 Anion Gap 8 BUN 14 Creatinine 1.17 Estim Creat Clear Calc 78.06 Est GFR (MDRD) Af Amer 82 Est GFR (MDRD) Non-Af 67 BUN/Creatinine Ratio 12.0 Glucose 80 Calcium 8.0 L Troponin I Triglycerides 153 Cholesterol 104 LDL Cholesterol 49 VLDL Cholesterol 31 HDL Cholesterol 24 L Assessment/Plan All Active Problems Speech disturbance (Acute) TIA (transient ischemic attack) (Acute) The patient is a 62 year old M with PMH history of lymphoma status post chemo and radiation, neuropathy, lung fibrosis, GERD, chronic left-sided paresthesias admitted with acute onset speech disturbances. 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 Per patient he lives with his , does not drive, denies any falls, and does not need any assistance with this ADLs. Per patient he does not take any aspirin at baseline. Per patient at present his speech is at baseline. Per patient his oncologist is at [place], and he was recently told in May that he may have 2 small lymph nodes following CT of the abdomen (records of which are not available with me at present). CTA head/neck done on admission reported to show mild 20% right carotid stenosis and left carotid stenosis at bifurcation and no hemodynamically significant stenosis or occlusion Impression Probable TIA Plan ?MRI brain awaited ?CTA head/neck reported to show 20% stenosis of the bilateral ICAs ?Aspirin 81 mg p.o. once daily and Plavix 75 mg p.o. once daily for 3 weeks. Dual antiplatelets for 3 weeks and then switch to single antiplatelet with aspirin. Bleeding risk discussed in detail with the patient ?Lipitor 80 mg p.o. nightly ?TTE-EF 60%, normal LA size, no PFO ?Recommend 30-day event recorder ?LDL 49, HbA1c pending ?Stroke risk factors discussed and stroke education provided ?Goal blood pressure less than 130/80 mmHg and goal HbA1c less than 7% ?Further management of lymphoma per oncologist ?PT/OT/ST ?GI/DVT prophylaxis ?Fall precautions ?Further medical management per hospitalist team ?Follow-up with neurology in 3 to 4 weeks ?Please call with questions if any ?Thank you for allowing us to participate in patient's care and management Code Visit Inpatient E&M: 08303 Init Hosp L3
[2018-08-13 11:15] LABS: Hemoglobin A1c 6.6 % (4.2-6.3)
--- NOTE | 2018-08-13 11:57 | DCINST_ITS ---
- Discharge Diagnoses Current Active Problems: Current Active and Chronic Problems Speech disturbance (Acute) TIA (transient ischemic attack) (Acute) You will use the following diet at home:: Cardiac Your food should be the consistency of: Regular Your liquids should be the consistency of: Regular/Thin Discharge Activity: Return to Normal Activity Allergies/Adverse Reactions: Allergies adhesive tape Allergy (Verified 08/12/18 16:46) Rash amoxicillin Allergy (Verified 08/12/18 16:46) Rash levofloxacin Allergy (Verified 08/12/18 16:46) Rash Penicillins Allergy (Verified 08/12/18 16:46) Upset Stomach aspirin Adverse Reaction (Verified 08/12/18 16:46) Upset Stomach Medications to take at Discharge Pantoprazole Sodium [Protonix] 40 mg PO DAILY 02/28/13 Ubidecarenone [Co Q-10] 200 mg PO DAILY 02/28/13 [place]-3/Dha/Epa/Fish Oil [Fish Oil Dr 500 mg Softgel] 500 mg PO BID 07/28/13 Vitamin B Complex 1 each PO DAILY 07/28/13 0.9% Saline Lock 10 - 40 ml IV UD PRN syringe 08/13/18 Aspirin [Aspirin, Baby] 81 mg PO DAILY@0800 tab.chew 08/13/18 Atorvastatin Calcium [Lipitor] 80 mg PO QHS #30 tablet 08/13/18 Clopidogrel Bisulfate [Plavix] 75 mg PO DAILY #21 tablet 08/13/18 The following prescriptions were given: Atorvastatin Calcium [Lipitor] 80 mg PO QHS #30 tablet Clopidogrel Bisulfate [Plavix] 75 mg PO DAILY #21 tablet Primary Care Physician: Veto Lopez DO [Primary Care Provider] - Please follow up with your Primary Care Physician in: 1-2 weeks Test Results: Test results from this visit will be discussed in further detail at your follow- up appointment, if applicable. Please Follow Up With: Shantal Lewis MD When: 3-4 weeks Proposed Discharge Date: 08/13/18
[2018-08-13] MEDS: Clopidogrel Bisulfate 75 MG Tablet PO (12:54)
[2018-08-13 14:01] LABS: Bedside Glucose 107 mg/dL (70-110)
--- NOTE | 2018-08-13 15:26 | CASEMGMT ---
Late Entry, evaluated patient this morning RN CM Assessment Introduced role of RN CM to patient.? Patient is alert, oriented and able?to participate in RN CM Assessment. ?Care providers, pharmacy, and demographics verified. Presentation: Decreased sensation to light touch on Lt side of face and difficulty getting words out Admit Dx: TIA Re-Admit: No Barriers/Issues: None PCP: Veot Lopez Specialists: ON[facility]- Dr Weinberg in [place], [facility] Preferred Pharmacy: [facility] Insurance: MM, [facility] A&B Rx Benefit:?Yes ?LNOK: Sherlyn Moreno LW/HPOA: Yes LW Living Arrangements:? Lives with in a 1.5 story home, 1 step to enter ADL?s: Independent with ambulation and ADLs Transportation: Patient drives, DC with DME: None HHC: Past SNF: None Goal: Home and doesn't think will have any needs. Denies questions/Concerns. Aware CM remains available for any emerging needs. DC PLAN: Home with no needs anticipated at this time. Saúl Sanchez RNCM
--- NOTE | 2018-08-13 16:31 | PCM.DC.SUM ---
<Jose Luis - Last Filed: 08/13/18 16:31> Discharge Date and Diagnosis Date of Admission: 08/12/18 Date of Discharge: 08/13/18 - Primary Discharge Diagnosis TIA expressive aphasia 2/2 above Hx mantle cell lymphoma GERD Dehydration former smoker Pulmonary fibrosis - Secondary Discharge Diagnosis Chronic Problems Personal history of Methicillin resistant Staphylococcus aureus infection (Chronic) Z86.14 Personal history of lymphoma (Chronic) Z85.72 Late effect of radiation (Chronic) T66.xxxS late effect radiation left arm Non-healing ulcer of upper extremity (Chronic) L98.499 8 cm nonhealing infected radiation ulcer lesion left arm Granuloma annulare (Chronic) Lung fibrosis (Chronic) GERD (gastroesophageal reflux disease) (Chronic) 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 RAD/Chest 1 View IMPRESSION: Normal x-ray examination of the chest. CTA Neck: IMPRESSION: 1. Mild (20%) right carotid stenosis. 2. Focal mild (30%) stenosis of the mid left common carotid artery. 3. Mild (20%) left carotid stenosis at the bifurcation. 4. Patent vertebral arteries bilaterally. 5. Bovine arch. CTA Head: IMPRESSION: Normal eek of [place] without a demonstrated aneurysm or hemodynamically significant stenosis. MRI/Brain without Contrast IMPRESSION: Senescent changes as above with no evidence of acute intracranial bleed, mass or ischemia. Left mastoid effusion, clinically correlate for congestive versus inflammatory process. Echo: Interpretation Summary The study was technically difficult. Contrast injection was performed. Left ventricular systolic function is normal. The estimated ejection fraction is 60 %. Trivial tricuspid valve insufficiency. Unable to estimate RV systolic pressure/pulmonary artery pressure due to technically difficult study. No evidence for diastolic dysfunction. Bubble contrast study negative for right to left interatrial shunt. Consults: Joshua - Neuro Operations: None Procedures: 2-D Echocardiogram Summary of Care Provided: Hospital course: The patient is a 62 year old M with pmhx as above who presented to the ER with complaints of sudden onset of difficulty speaking. The patient states that he was saying words backwards, and in a way that would not make any sense and he had trouble finding what words he wanted to say. This occurred at about 4 PM of the day of presentation. Reportedly his words were also slurred. He had no focal weakness, headache, double vision or blurry vision. In the emergency room CT of the brain was negative. He was admitted for stroke work-up. His symptoms completely resolved and he had no longer had any speech issues and felt completely back to his normal self. CTA of the head and neck were performed and did not find any acute process, MRI of the brain was negative for stroke. Neurology was consulted and felt that he had a TIA. They advised high-dose statin, aspirin, and Plavix for 3 weeks. They also advised a 30-day event monitor. The patient was agreeable and as he had no further symptoms he was discharged home in stable condition. He will need to follow-up with neurology in 3 to 4 weeks, follow-up with Dr. Mckeon with regards to his event monitor, and follow-up with his PCP in 1 to 2 weeks. This patient was seen by Jose Luis PA-C under the supervision of Doctor Valle. [] - Physical Exam General: Alert, Oriented x3, Cooperative HEENT: Atraumatic, PERRLA, EOMI, Normocephalic Neck: Supple, No JVD, Negative Carotid Bruits Lungs: Clear to auscultation, Normal air movement Cardiovascular: Regular rate, No murmurs Abdomen: Bowel Sounds Present, Soft, Non Tender Extremities: No edema, Capillary Refill Less than 3 Seconds Skin: No rashes, No breakdown Musculoskeletal: No Tenderness to Palpation of Joints or Extremities Neurological: Cranial nerves II-XII grossly intact Psych/Mental Status: Normal Affect, Appropriate, Alert and oriented to time, place, person, mood and affect Vital Signs Temp Pulse Resp BP Pulse Ox 98.1 F 79 16 129/69 H 97 08/13/18 07:58 08/13/18 07:58 08/13/18 07:58 08/13/18 07:58 08/13/18 07:58 Oxygen Flow Rate (L/min) 2 Oxygen Delivery Method Room Air Weight: 272 lb 14.916 oz Body Mass Index (BMI) 35.0 Finger Stick Blood Glucose 107 Intake and Output for Last 24 Hours 08/11/18 08/12/18 08/13/18 23:59 23:59 23:59 Intake Total 720 / 720 1613 / 1613 Balance 720 / 720 1613 / 1613 Laboratory Tests Past 24 Hrs 08/12/18 08/12/18 08/12/18 17:15 17:15 17:15 WBC 7.7 RBC 4.66 Hgb 14.4 Hct 44.6 MCV 95.7 H MCH 30.9 MCHC 32.3 RDW 13.7 RDW Differential 48.0 H Plt Count 182 MPV 9.6 Immature Gran % (Auto) 0.300 Neut % (Auto) 63.6 Lymph % (Auto) 23.0 [place] % (Auto) 9.2 Eos % (Auto) 3.5 Baso % (Auto) 0.4 Absolute Neuts (auto) 4.9 Absolute Lymphs (auto) 1.78 Total Counted Not Reportable PT 14.7 INR 1.2 APTT 28.1 Sodium 138 Potassium 4.3 Chloride 106 Carbon Dioxide 27.0 Anion Gap 5 BUN 15 Creatinine 1.45 H Estim Creat Clear Calc 61.23 Est GFR (MDRD) Af Amer 64 Est GFR (MDRD) Non-Af 53 L BUN/Creatinine Ratio 10.3 Glucose 92 Hemoglobin A1c Calcium 9.1 Troponin I < 0.015 Triglycerides Cholesterol LDL Cholesterol VLDL Cholesterol HDL Cholesterol 08/13/18 08/13/18 06:18 06:18 WBC RBC Hgb Hct MCV MCH MCHC RDW RDW Differential Plt Count MPV Immature Gran % (Auto) Neut % (Auto) Lymph % (Auto) [place] % (Auto) Eos % (Auto) Baso % (Auto) Absolute Neuts (auto) Absolute Lymphs (auto) Total Counted PT INR APTT Sodium 140 Potassium 4.4 Chloride 107 Carbon Dioxide 25.0 Anion Gap 8 BUN 14 Creatinine 1.17 Estim Creat Clear Calc 78.06 Est GFR (MDRD) Af Amer 82 Est GFR (MDRD) Non-Af 67 BUN/Creatinine Ratio 12.0 Glucose 80 Hemoglobin A1c 6.6 H Calcium 8.0 L Troponin I Triglycerides 153 Cholesterol 104 LDL Cholesterol 49 VLDL Cholesterol 31 HDL Cholesterol 24 L POC Glucose 08/12/18 16:46 POC Glucose 107 Discharge Diet: Low fat/ Low Cholesterol, 2000 mg Sodium Diet Discharge Activity: Return to Normal Activity Home Medications: Medications to take at Discharge Pantoprazole Sodium [Protonix] 40 mg PO DAILY 02/28/13 Ubidecarenone [Co Q-10] 200 mg PO DAILY 02/28/13 [place]-3/Dha/Epa/Fish Oil [Fish Oil Dr 500 mg Softgel] 500 mg PO BID 07/28/13 Vitamin B Complex 1 each PO DAILY 07/28/13 0.9% Saline Lock 10 - 40 ml IV UD PRN syringe 08/13/18 Aspirin [Aspirin, Baby] 81 mg PO DAILY@0800 tab.chew 08/13/18 Atorvastatin Calcium [Lipitor] 80 mg PO QHS #30 tab 08/13/18 Clopidogrel Bisulfate [Plavix] 75 mg PO DAILY #21 tab 08/13/18 Following Prescrptions Were Given to Patient: Atorvastatin Calcium [Lipitor] 80 mg PO QHS #30 tab Prescription Printed Clopidogrel Bisulfate [Plavix] 75 mg PO DAILY #21 tab Prescription Printed Other Amb Orders: 30 Day Event Recorder Hook-Up [[facility]] Time Frame: 2 Days, Location: None Selected Primary Care Physician: Veto Lopez DO [Primary Care Provider] - Please follow up with your Primary Care Physician in: 1-2 weeks Please Follow Up With: Shantal Lewis MD When: 3-4 weeks Please Follow Up With: Andrey Mckeon MD When: 4 weeks Disposition: Home Minutes spent on discharge:: 35 Patient Condition:: Stable Medical Necessity - Tobacco Use Smoking Status: Former smoker Meaningful Use Info Meaningful Use Diagnoses (Choose all that apply): None applicable <LeonardNakiaDonell - Last Filed: 08/13/18 17:41> Discharge Date and Diagnosis - Secondary Discharge Diagnosis Chronic Problems Personal history of Methicillin resistant Staphylococcus aureus infection (Chronic) Z86.14 Personal history of lymphoma (Chronic) Z85.72 Late effect of radiation (Chronic) T66.xxxS late effect radiation left arm Non-healing ulcer of upper extremity (Chronic) L98.499 8 cm nonhealing infected radiation ulcer lesion left arm Granuloma annulare (Chronic) Lung fibrosis (Chronic) GERD (gastroesophageal reflux disease) (Chronic) 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 I have independently interviewed and examined the patient and reviewed pertinent history, examination findings, laboratory and plan of management. I have reviewed the note and agree with the documented findings with the few additional points. In brief, patient is admitted for acute onset of language deficit, seems receptive and motor aphasia. This was transient and occurred about 4 PM and resolved by the time he came to ED. Stroke work-up was done. MRI brain negative of acute stroke. CT of head and neck did not show any major stenosis or occlusion. Bilateral ICA about 20% as per neurologist. Discussed with neurologist Dr. Lewis. Patient discharged on aspirin lifelong, Plavix for 3 weeks and statin. While antiplatelet agent for 3 weeks and then continue aspirin and statin. Advised 30-day event monitor as mentioned above. Discharge medication reconciliation done. Discharge follow-up instructions completed. Discharge process discussed with the patient and all questions were answered to patient's satisfaction.. I have discussed my assessment with Jose CROW and orders have been reviewed. [] Subjective: Seen and examined. Discussed with the patient's near the bedside. Patient had transient language deficit with difficulty in thinking of words/vocalization/speech output. Patient also had transient paresthesia in left side of face. Patient has chronic numbness tingling of left upper and lower extremity. - Physical Exam General: Alert, Oriented x3, Cooperative HEENT: Atraumatic, PERRLA, EOMI, Normocephalic Neck: Supple, No JVD, Negative Carotid Bruits Lungs: Clear to auscultation, Normal air movement, No rhonchi, No wheeze, No rales Cardiovascular: Regular rate, Regular Rhythm, Normal S1, Normal S2, No murmurs Abdomen: Bowel Sounds Present, Soft, Non Tender, Non-Distended Extremities: No edema, Capillary Refill Less than 3 Seconds Skin: No rashes, No breakdown Musculoskeletal: No Tenderness to Palpation of Joints or Extremities Neurological: Cranial nerves II-XII grossly intact, Deep Tendon Reflexes 2+/4 and Symmetrical, Neuro grossly intact, Motor Exam 5/5 strength throughout, - - NIH stroke scale 0 Psych/Mental Status: Normal Affect, Appropriate Vital Signs Temp Pulse Resp BP Pulse Ox 98.1 F 79 16 129/69 H 97 08/13/18 07:58 08/13/18 07:58 08/13/18 07:58 08/13/18 07:58 08/13/18 07:58 Oxygen Flow Rate (L/min) 2 Oxygen Delivery Method Room Air Weight: 272 lb 14.916 oz Body Mass Index (BMI) 35.0 Finger Stick Blood Glucose 107 Intake and Output for Last 24 Hours 08/11/18 08/12/18 08/13/18 23:59 23:59 23:59 Intake Total 720 / 720 1613 / 1613 Balance 720 / 720 1613 / 1613 Laboratory Tests Past 24 Hrs 08/12/18 08/12/18 08/13/18 17:15 17:15 06:18 PT 14.7 INR 1.2 APTT 28.1 Sodium 138 140 Potassium 4.3 4.4 Chloride 106 107 Carbon Dioxide 27.0 25.0 Anion Gap 5 8 BUN 15 14 Creatinine 1.45 H 1.17 Estim Creat Clear Calc 61.23 78.06 Est GFR (MDRD) Af Amer 64 82 Est GFR (MDRD) Non-Af 53 L 67 BUN/Creatinine Ratio 10.3 12.0 Glucose 92 80 Hemoglobin A1c Calcium 9.1 8.0 L Troponin I < 0.015 Triglycerides 153 Cholesterol 104 LDL Cholesterol 49 VLDL Cholesterol 31 HDL Cholesterol 24 L 08/13/18 06:18 PT INR APTT Sodium Potassium Chloride Carbon Dioxide Anion Gap BUN Creatinine Estim Creat Clear Calc Est GFR (MDRD) Af Amer Est GFR (MDRD) Non-Af BUN/Creatinine Ratio Glucose Hemoglobin A1c 6.6 H Calcium Troponin I Triglycerides Cholesterol LDL Cholesterol VLDL Cholesterol HDL Cholesterol POC Glucose 08/12/18 16:46 POC Glucose 107 Code Visit OBSV E&M: [id number] Observation care discharge
== END 2018-08-13 11:58 | disposition home health service (06) ==
LOC: ED 17:09 → PCU 19:48
PROVIDERS: Psychiatry & Neurology Neurology; Admitting Provider Hospitalist; Emergency Provider Emergency Medicine; Family Provider Family Medicine; PCP Family Medicine; Visit Provider Internal Medicine
DX: G45.9 Transient cerebral ischemic attack, unspecified (principal); R47.01 Aphasia; E86.0 Dehydration; K21.9 Gastro-esophageal reflux disease without esophagitis; R00.0 Tachycardia, unspecified; J84.10 Pulmonary fibrosis, unspecified; Z85.72 Personal history of non-Hodgkin lymphomas; Z92.21 Personal history of antineoplastic chemotherapy; Z92.3 Personal history of irradiation; Z87.891 Personal history of nicotine dependence; Z79.899 Other long term (current) drug therapy
CPT/HCPCS: 70450; 70496; 70498; 70551; 71045; 80048; 80061; 82962; 83036; 84484; 85025; 85610; 85730; 93005; 93306; 96360; 96361; 96372; 99218; 99285; J7030; Q9957; Q9967; A4216; C8929; G0378

== ENCOUNTER 2018-08-16 12:53 | Emergency (ER) | payer OTHER, MEDICARE, SELFPAY ==
[2018-08-12 20:18] VITALS: BMI 35.0
[2018-08-16 12:54] VITALS: BP 148/90; PULSE 127; RESP 21; TEMP 36.6; O2SAT 98; BMI 36.1
--- NOTE | 2018-08-16 13:07 | CT_ITS ---
STUDY: CT ABDOMEN AND PELVIS WITH CONTRAST REASON FOR EXAM: Male, 62 years old. Abdominal pain and distention, history of lymphoma RADIATION DOSAGE (If Supplied By Facility): CTDIvol = ( 18.68 ) mGy, DLP = ( 1572.28 ) mGycm TECHNIQUE: Transaxial images were obtained from the dome of the diaphragm to the symphysis pubis without oral contrast. 75ml IV/Oral Isovue 300 was administered. Sagittal and coronal images were reconstructed. Individualized dose optimization techniques were used for this CT. COMPARISON: None. FINDINGS: There are chronic interstitial fibrotic changes of the lung bases. Calcified coronary vessels noted. There is a diffuse contour abnormality of the liver consistent with cirrhotic changes. There is extensive ascites Normal gallbladder and extrahepatic biliary system. There are multiple benign calcified granulomata of the spleen. Normal pancreas. Normal bilateral adrenal glands. Normal right kidney. Normal left kidney. Normal visualized stomach. Normal small intestine. Scattered sigmoid diverticulosis is noted. Because of the ascites I cannot assess for pericolonic inflammation. There is non-visualization of the appendix. There is diffuse induration of the omental fat along with scattered subcentimeter lymph nodes. Omental metastasis is suspected. Normal abdominal aorta. Normal inferior vena cava. Normal retroperitoneum. Normal urinary bladder. Small fat-containing inguinal hernias noted. There are diffuse degenerative changes of the visualized lumbar spine, and pelvis. CT/Abdomen/Pelvis WITH Contrast IMPRESSION: Cirrhotic liver with diffuse abdominal ascites Induration of the omentum with scattered subcentimeter omental lymph nodes suggests omental metastasis Sigmoid diverticulosis Calcified coronary vessels Fat-containing inguinal hernias Degenerative bony changes Electronically Signed: Hernan Mcgowan MD at 15:50 EDT , Service support ,
--- NOTE | 2018-08-16 13:07 | EKG12_ITS ---
Test Reason : CP Blood Pressure : / mmHG Vent. Rate : 119 BPM Atrial Rate : 119 BPM P-R Int : 152 ms QRS Dur : 084 ms QT Int : 320 ms P-R-T Axes : 025 083 115 degrees QTc Int : 450 [address] tachy[address] and T wave abnormality Abnormal ECG Confirmed by CAROLINE HER, ALEXIS ([id number]), production editor CARLOS PERSAUD ([id number]) on 08/19/2018 8:46:53 AM Referred By: MR Confirmed By:ALEXIS VELAZQUEZ MD
[2018-08-16 13:59] LABS: Absolute Lymphocyte Count 1.55 X10^3/ul (0.83-4.51); Absolute Neutrophil Count 10.4 X10^3/uL (2.0-7.7); Basophil# 0.01 X10^3/uL; Basophil% 0.1 % (0-1); Differential Indicated SCAN CRITERIA MET; Eosinophil# 0.71 X10^3/uL; Hematocrit 45.6 % (40-54); Hemoglobin 15.4 g/dl (13.0-16.5); Lymphocyte # 1.55 X10^3/ul (4.0); Lymphocyte % 10.9 % (19-41); Mean Corp Hgb Conc 33.8 g/gl (32-36); Mean Corpuscular Hgb 31.4 pg (27.0-32.0); Mean Corpuscular Volume 93.1 fL (80-94); Mean Platelet Vol. 10.2 fl (6.2-12.0); Monocyte# 1.55 X10^3/uL; Monocyte% 10.9 % (0-10); Neutrophil # 10.37 X10^3/uL (2.7-7.7); Neutrophil % 72.8 % (47-70); POSITIVE COUNT NO; POSITIVE DIFFERENTIAL YES; POSITIVE MORPHOLOGY NO; Platelet Count 241 K/mm3 (150-450); RBC Distribution Width CV 13.7 % (11.6-14.6); RBC Distribution Width SD 46.1 fl (35.1-43.9); White Blood Count 14.2 K/mm3 (4.4-11.0)
[2018-08-16] MEDS: Morphine 4 MG/ML Syringe IV (14:05)
[2018-08-16] MEDS: 0.9% Normal Saline 1,000 ML 1000 ML IV (14:05)
[2018-08-16] MEDS: Ondansetron 4 MG/2 ML Vial IV (14:05)
[2018-08-16 14:14] LABS: ALB/GLOB Ratio 0.8 RATIO (0.9-2.4); AST(SGOT) 64 U/L (15-37); Alanine Aminotransfer ALT/SGPT 41 U/L (16-61); Albumin, Serum 2.8 g/dL (3.2-5.0); Alkaline Phosphatase 55 U/L (45-117); Anion Gap 12 (5-15); BUN 23 mg/dL (7-18); BUN/Creat Ratio 13.5 RATIO (10-20); Calcium,Total 8.9 mg/dL (8.5-10.1); Chloride 102 mmol/L (98-107); EST Glomerular Filtration Rate 44 mL/min (>60); Est Glom Filt Rate - Afr Amer 53 mL/min (>60); Estimated Creatinine Clearance 53.73 ml/min; Globulin 3.3 g/dL (2.2-4.2); Glucose 92 mg/dL (74-106); Lipase 65 U/L (73-393); Protein, Total 6.1 g/dL (6.4-8.2); Sodium Level 135 mmol/L (136-145)
[2018-08-16 14:32] VITALS: BP 120/65; PULSE 74; RESP 18; O2SAT 98
--- NOTE | 2018-08-16 15:15 | ED.VIS.GI ---
History of Present Illness Chief Complaint: Chest Pain Narrative: Patient presenting for evaluation secondary to abdominal pain. Patient was recently admitted to the hospital secondary to a rule out TIA work-up, and also has a history of mast cell lymphoma in the past. Patient states that over the course of the last day or so he has been having worsening abdominal distention, diffuse abdominal pain, nausea and vomiting. Patient does report that he still been having normal bowel movements and passing gas. Patient is never had any history of abdominal surgeries in the past. Patient reports that his vomiting is nonbloody and nonbilious, pain and distention are moderate worse with any sort of palpation. Patient reports that he also has associated diaphoresis with this. Review of systems otherwise negative. Past Medical History - Allergies and Home Meds Allergies/Adverse Reactions: Allergies adhesive tape Allergy (Verified 08/12/18 16:46) Rash amoxicillin Allergy (Verified 08/12/18 16:46) Rash levofloxacin Allergy (Verified 08/12/18 16:46) Rash aspirin Adverse Reaction (Verified 08/12/18 16:46) Upset Stomach Penicillins Adverse Reaction (Verified 08/16/18 16:18) Upset Stomach Primary Care Physician: Veto Lopez DO [Primary Care Provider] - Surgical History: - - Back surgery, wrist surgery a scope. surgery with his mantle cell lymphoma Smoking Status: Former smoker - Family History Maternal Family History: Reports: No pertinent history Paternal Family History: Reports: Cancer, Diabetes, - - Thyroid disease Review of Systems General: Reports: Sweats Cardiovascular: Denies: Chest pain Respiratory: Reports: Dyspnea Gastrointestinal: Reports: Abdominal pain, Nausea, Vomiting. Denies: Diarrhea, Constipation Physical Exam Vital Signs/Narrative: Vital Signs Temp Pulse Resp BP Pulse Ox 08/16/18 14:32 74 18 120/65 98 08/16/18 12:54 97.9 F 127 H 21 H 148/90 H 98 General: Well nourished, Well developed, - - Minimally distressed secondary to pain Head: Normocephalic, Atraumatic Eyes: Perrl, EOMI. Negative for: Scleral icterus ENT: Moist mucous membranes, No rhinorrhea Neck: Supple, Nontender Cardiovascular: Regular rhythm, Tachycardia. Negative for: Murmur Respiratory: No distress, CTA bilaterally, Chest nontender Abdomen: - - Abdomen is distended and tympanitic. There is tenderness palpation in the epigastrium. No real localization of the right upper quadrant. Back: Nontender, Normal Inspection Extremities: Nontender Skin: Normal color, No rash Neurological: Alert, Oriented x3, Cranial nerves II-XII grossly intact, Normal Strength, Normal Sensation Psychological: Normal affect, Normal Mood Diagnostic/Tx/Re-eval - EKG Initial EKG Interpretation: - - Sinus tachycardia with a rate of 119. Nonspecific ST and T wave changes. No evidence of acute ischemia or arrhythmia - Medical Decision Making Patient presented secondary to abdominal pain and shortness of breath. IV was established laboratory studies were obtained. Patient was found to have a leukocytosis. Chemistry panel and liver panel were grossly unremarkable. Patient's troponin was negative. EKG demonstrated sinus tachycardia with nonspecific changes. CT abdomen and pelvis with p.o. and IV contrast was performed to rule out the possibility of obstruction secondary to cancer due to the patient's history of mantle cell lymphoma. This did not demonstrate any evidence of obstruction but rather showed evidence of cirrhosis, ascites, and multiple enlarged lymph nodes within of the omentum concerning for the possibility of metastasis. Despite fluid hydration, the patient continues to be tachycardic and complains of feeling short of breath especially with walking short distances due to his abdominal girth. Patient's prior cancer treatment was through cancer treatment centers in [place] as well as the [facility], but the patient reports that he was unhappy with his local cancer care. I believe the patient would benefit from admission secondary to his shortness of breath on exertion. I believe he would benefit from paracentesis and initiation of oncologic treatment. Disposition: Admit to Med Surg ED Disposition - Plan for ED Patient: Disposition: Acute Care Hospital [facility] Diagnosis: Ascites, Dyspnea, Lymphoma Referrals: Veto Lopez DO [Primary Care Provider] -
[2018-08-16 16:18] VITALS: BMI 36.1
[2018-08-16 16:43] VITALS: BP 162/99; PULSE 104; RESP 20; O2SAT 97
--- NOTE | 2018-08-16 16:52 | PN_ITS ---
Patient Problems: Active and Suspected Problems Ascites (Acute) Dyspnea (Acute) Lymphoma (Acute) Subjective: This patient is a 62 yo male with pmhx of TIA (DCd from [facility] 08/13/2018), lymphoma treated by [facility] in [place], [place], with known lesions in the liver, also with a hx of pulmonary fibrosis, GERD, chronic radiation wounds, who presented to the ER with abdominal distention. He has been experiencing gradual abdominal distention over the past month. After DC, he suddenly began swelling worse. His belly is so distended that it is beginning to affect his breathing. He is mildly SOB at rest, worse laying flat, and also worse with exertion. He has had some dry heaves yesterday as well. No diarrhea. No fevers/chills. No cough. He has mild abdominal discomfort when he pushes on his own epigastric region. He notes that his prior abdominal graft source location is stretched. He is comfortably resting semi lock in bed, without SOB or hyoxia. A Ct of the abdomen was obtained in the ER which demonstrated diffuse ascites, cirrhotic changes which he is aware of previously (states this is from chemo), there was also omental lymph nodes suggestive of mets. Unfortunately the patient was started on aspirin and plavix after his TIA. He cannot have a paracentesis for his ascites for five days. This was confirmed with radiology. He otherwise feels well. He is considering following up for oncology with [facility] oncology as he is unsure if he can make the drive to [place]. He has tried to work with [facility] oncology in the past, had a poor experience and will not consider going back to them. He is agreeable to going home and following up with oncology as an outpatient and following up for an outpatient paracentesis. - Physical Exam General: Alert, Oriented x3, Cooperative HEENT: Atraumatic, PERRLA, EOMI, Normocephalic Neck: Supple, No JVD, Negative Carotid Bruits Lungs: Clear to auscultation, Normal air movement Cardiovascular: Regular rate, No murmurs Abdomen: Bowel Sounds Present, Soft, Non Tender, Distended, Obese, Tender - worse midepigastric region Extremities: No edema, Capillary Refill Less than 3 Seconds Skin: No rashes, No breakdown Musculoskeletal: No Tenderness to Palpation of Joints or Extremities Neurological: Cranial nerves II-XII grossly intact Psych/Mental Status: Normal Affect, Appropriate, Alert and oriented to time, place, person, mood and affect Vital Signs Temp Pulse Resp BP Pulse Ox 97.9 F 104 H 20 H 162/99 H 97 08/16/18 12:54 08/16/18 16:43 08/16/18 16:43 08/16/18 16:43 08/16/18 16:43 Oxygen Delivery Method Room Air Weight: 281 lb 8.485 oz Body Mass Index (BMI) 36.1 Finger Stick Blood Glucose 107 Laboratory Tests Past 24 Hrs 08/16/18 08/16/18 13:40 13:40 WBC 14.2 H RBC 4.90 Hgb 15.4 Hct 45.6 MCV 93.1 MCH 31.4 MCHC 33.8 RDW 13.7 RDW Differential 46.1 H Plt Count 241 MPV 10.2 Immature Gran % (Auto) 0.300 Neut % (Auto) 72.8 H Lymph % (Auto) 10.9 L [place] % (Auto) 10.9 H Eos % (Auto) 5.0 Baso % (Auto) 0.1 Absolute Neuts (auto) 10.4 H Absolute Lymphs (auto) 1.55 Total Counted Not Reportable Differential Comment Diff Path Review May foll Sodium 135 L Potassium 4.0 Chloride 102 Carbon Dioxide 21.0 Anion Gap 12 BUN 23 H Creatinine 1.70 H Estim Creat Clear Calc 53.73 Est GFR (MDRD) Af Amer 53 L Est GFR (MDRD) Non-Af 44 L BUN/Creatinine Ratio 13.5 Glucose 92 Calcium 8.9 Total Bilirubin 0.80 AST 64 H ALT 41 Alkaline Phosphatase 55 Troponin I < 0.015 Total Protein 6.1 L Albumin 2.8 L Globulin 3.3 Albumin/Globulin Ratio 0.8 L Lipase 65 L Medical Necessity - Tobacco Use Smoking Status: Former smoker Tobacco Use: Cigarettes, Cigars Assessment/Plan All Active Problems Speech disturbance (Acute) TIA (transient ischemic attack) (Acute) Ascites (Acute) Dyspnea (Acute) Lymphoma (Acute) 1. Ascites 2/2 liver cirrhosis and lymphadenopathy - pt will need to hold plavix and aspirin x 5 days and have an outpatient paracentesis. An appointment was arranged for him for Wednesday. He will need to follow up with oncology as soon as possible. He will be given contact information for [facility] oncology. 2. Hx Mantle Cell Lymphoma - prior treatment through [facility]. 3. Recent TIA - unfortunately he just was diagnosed with a TIA. He will need to resume aspirin and plavix as soon as possible after the paracentesis. 4. Pulmonary fibrosis - no hypoxia. Lungs clear. Disposition : [place] home, outpatient follow up with oncology, PCP, and paracentesis on Wednesday. This patient was seen by Jose Luis PA-C under the supervision of Dr. Sifuentes.
--- NOTE | 2018-08-16 17:04 | CON.PCM_ITS ---
<Jose Luis - Last Filed: 08/16/18 17:04> Problem List (1) Ascites Status: Acute (2) TIA (transient ischemic attack) Status: Chronic (3) Lymphoma Status: Chronic (4) Non-healing ulcer of upper extremity Status: Chronic Qualifiers: Non-pressure ulcer stage: limited to breakdown of skin Qualified Code(s): L98.491 - Non-pressure chronic ulcer of skin of other sites limited to breakdown of skin Comment: L98.499 8 cm nonhealing infected radiation ulcer lesion left arm (5) Granuloma annulare Status: Chronic (6) Lung fibrosis Status: Chronic (7) GERD (gastroesophageal reflux disease) Status: Chronic (8) 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 He has been experiencing gradual abdominal distention over the past month. After DC, he suddenly began swelling worse. His belly is so distended that it is beginning to affect his breathing. He is mildly SOB at rest, worse laying flat, and also worse with exertion. He has had some dry heaves yesterday as well. No diarrhea. No fevers/chills. No cough. He has mild abdominal discomfort when he pushes on his own epigastric region. He notes that his prior abdominal graft source location is stretched. He is comfortably resting semi lock in bed, without SOB or hyoxia. A Ct of the abdomen was obtained in the ER which demonstrated diffuse ascites, cirrhotic changes which he is aware of previously (states this is from chemo), there was also omental lymph nodes suggestive of mets. Unfortunately the patient was started on aspirin and plavix after his TIA. He cannot have a paracentesis for his ascites for five days. This was confirmed with radiology. He otherwise feels well. He is considering following up for oncology with [facility] oncology as he is unsure if he can make the drive to [place]. He has tried to work with [facility] oncology in the past, had a poor experience and will not consider going back to them. He is agreeable to going home and following up with oncology as an outpatient and following up for an outpatient paracentesis. 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) L59.9 Allergies adhesive tape Allergy (Verified 08/12/18 16:46) Rash amoxicillin Allergy (Verified 08/12/18 16:46) Rash levofloxacin Allergy (Verified 08/12/18 16:46) Rash aspirin Adverse Reaction (Verified 08/12/18 16:46) Upset Stomach Penicillins Adverse Reaction (Verified 08/16/18 16:18) Upset Stomach Home Medications: Ambulatory Orders Medication Instructions Recorded Pantoprazole Sodium [Protonix] 40 mg PO DAILY 02/28/13 Atorvastatin Calcium [Lipitor] 80 mg PO QHS #30 tab 08/13/18 Aspirin [Aspirin, Baby] 81 mg PO DAILY@0800 #0 tab.chew 08/16/18 Clopidogrel Bisulfate [Plavix] 75 mg PO DAILY #21 tab 08/16/18 Surgical History: - - Back surgery, wrist surgery a scope. surgery with his mantle cell lymphoma Psychiatric History: No pertinent psych hx Lives: Spouse/ Significant Other Smoking Status: Former smoker Tobacco Use: Cigarettes, Cigars Alcohol: None Drugs: None - *Family History Maternal History Items: No pertinent history Paternal History Items: Cancer, Diabetes, - - Thyroid disease Review of Systems Constitutional: Denies: Chills, Fever, Weight Change HEENT: Denies: Head Aches, Sinus Congestion, Sinus Drainage Cardiovascular: Denies: Chest Pain, Chest Tightness, Palpitations Respiratory: Reports: Shortness of Breath, Shortness of breath upon exertion, - - worse laying flat. Denies: Cough, Shortness of breath at rest, Sputum production Gastrointestinal: Reports: Abdominal Pain, Nausea, - - Distention. Denies: Diarrhea, Vomiting Genitourinary: Denies: Dysuria Musculoskeletal: Denies: Joint Pain, Joint Tenderness Skin: Denies: Rash, Wounds Neurological: Denies: Numbness, Tingling, Focal weakness Psychiatric: Denies: Anxiety, Depression, Homicidal Ideations, Suicidal Ideations Hematologic/ Lymphatic: Denies: Easy Bruising, Easy Bleeding Patient Problems: Active and Suspected Problems Ascites (Acute) Dyspnea (Acute) - Physical Exam General: Alert, Oriented x3, Cooperative HEENT: Atraumatic, PERRLA, EOMI, Normocephalic Neck: Supple, No JVD, Negative Carotid Bruits Lungs: Clear to auscultation, Normal air movement Cardiovascular: Regular rate, No murmurs Abdomen: Bowel Sounds Present, Soft, Distended, Tender - tender diffusely, worse in midepigastric region Extremities: No edema, Capillary Refill Less than 3 Seconds Skin: No rashes, No breakdown Musculoskeletal: No Tenderness to Palpation of Joints or Extremities Neurological: Cranial nerves II-XII grossly intact Psych/Mental Status: Normal Affect, Appropriate, Alert and oriented to time, place, person, mood and affect Vital Signs Temp Pulse Resp BP Pulse Ox 97.9 F 104 H 20 H 162/99 H 97 08/16/18 12:54 08/16/18 16:43 08/16/18 16:43 08/16/18 16:43 08/16/18 16:43 Oxygen Delivery Method Room Air Weight: 281 lb 8.485 oz Body Mass Index (BMI) 36.1 Finger Stick Blood Glucose 107 Laboratory Tests Past 24 Hrs 08/16/18 08/16/18 13:40 13:40 WBC 14.2 H RBC 4.90 Hgb 15.4 Hct 45.6 MCV 93.1 MCH 31.4 MCHC 33.8 RDW 13.7 RDW Differential 46.1 H Plt Count 241 MPV 10.2 Immature Gran % (Auto) 0.300 Neut % (Auto) 72.8 H Lymph % (Auto) 10.9 L [place] % (Auto) 10.9 H Eos % (Auto) 5.0 Baso % (Auto) 0.1 Absolute Neuts (auto) 10.4 H Absolute Lymphs (auto) 1.55 Total Counted Not Reportable Differential Comment Diff Path Review May foll Sodium 135 L Potassium 4.0 Chloride 102 Carbon Dioxide 21.0 Anion Gap 12 BUN 23 H Creatinine 1.70 H Estim Creat Clear Calc 53.73 Est GFR (MDRD) Af Amer 53 L Est GFR (MDRD) Non-Af 44 L BUN/Creatinine Ratio 13.5 Glucose 92 Calcium 8.9 Total Bilirubin 0.80 AST 64 H ALT 41 Alkaline Phosphatase 55 Troponin I < 0.015 Total Protein 6.1 L Albumin 2.8 L Globulin 3.3 Albumin/Globulin Ratio 0.8 L Lipase 65 L Assessment/Plan All Active Problems Speech disturbance (Acute) Ascites (Acute) Dyspnea (Acute) 1. Ascites 2/2 liver cirrhosis (2/2 cancer therapy) and lymphadenopathy - pt will need to hold plavix and aspirin until he has a paracentesis. An appointment was arranged for him for Wednesday. He will need to follow up with oncology as soon as possible. He will be given contact information for [facility] oncology. 2. Hx Mantle Cell Lymphoma - prior treatment through [facility]. As above. 3. Recent TIA - unfortunately he just was diagnosed with a TIA. He will need to resume aspirin and plavix as soon as possible after the paracentesis. 4. Pulmonary fibrosis (2/2 cancer therapy) - no hypoxia. Lungs clear Disposition : DC home, outpatient follow up with oncology, PCP, and paracentesis on Wednesday. This patient was seen by Jose Luis PA-C under the supervision of Dr. Sifuentes. <Gianluca Sifuentes - Last Filed: 08/16/18 17:17> Problem List (1) Ascites Status: Acute Qualifiers: Ascites type: malignant Qualified Code(s): R18.0 - Malignant ascites Reason for Consult Reason for Consultation: abdominal distention History of Present Illness: The patient is a 62 year old M presents with increased abdominal girth. Patient also short of breath. Presented to the emergency room. Had a CAT scan that showed diffuse ascites as well as possible omental metastasis. The hospital service was contacted to bring patient in for paracentesis. Patient has never had ascites nor required a paracentesis in the past. [] Past Medical History Allergies adhesive tape Allergy (Verified 08/12/18 16:46) Rash amoxicillin Allergy (Verified 08/12/18 16:46) Rash levofloxacin Allergy (Verified 08/12/18 16:46) Rash aspirin Adverse Reaction (Verified 08/12/18 16:46) Upset Stomach Penicillins Adverse Reaction (Verified 08/16/18 16:18) Upset Stomach Surgical History: - Psychiatric History: No pertinent psych hx Lives: Spouse/ Significant Other Smoking Status: Former smoker Tobacco Use: Cigarettes, Cigars Alcohol: None Drugs: None - *Family History Maternal History Items: No pertinent history Paternal History Items: Cancer, Diabetes, - Review of Systems Constitutional: Denies: Chills, Fever, Weight Change HEENT: Denies: Head Aches, Sinus Congestion, Sinus Drainage Cardiovascular: Denies: Chest Pain, Chest Tightness, Palpitations Respiratory: Reports: Shortness of Breath, Shortness of breath upon exertion, -. Denies: Cough, Shortness of breath at rest, Sputum production Gastrointestinal: Reports: Abdominal Pain, Nausea, -. Denies: Diarrhea, Vomiting Genitourinary: Denies: Dysuria Musculoskeletal: Denies: Joint Pain, Joint Tenderness Skin: Denies: Rash, Wounds Neurological: Denies: Focal weakness, Numbness, Tingling Psychiatric: Denies: Anxiety, Depression, Homicidal Ideations, Suicidal Ideations Hematologic/ Lymphatic: Denies: Easy Bruising, Easy Bleeding - Physical Exam General: Alert, Cooperative HEENT: Atraumatic, Normocephalic Lungs: Clear to auscultation, Normal air movement Cardiovascular: Regular rate, No murmurs Abdomen: Bowel Sounds Present, Soft, Distended, Tender Extremities: No edema, Capillary Refill Less than 3 Seconds Skin: No rashes, No breakdown Musculoskeletal: No Tenderness to Palpation of Joints or Extremities Neurological: Cranial nerves II-XII grossly intact Psych/Mental Status: Normal Affect, Appropriate Vital Signs Temp Pulse Resp BP Pulse Ox 36.6 C 104 H 20 H 162/99 H 97 08/16/18 12:54 08/16/18 16:43 08/16/18 16:43 08/16/18 16:43 08/16/18 16:43 Oxygen Delivery Method Room Air Weight: 127.7 kg Body Mass Index (BMI) 36.1 Finger Stick Blood Glucose 107 Laboratory Tests Past 24 Hrs 08/16/18 08/16/18 13:40 13:40 WBC 14.2 H RBC 4.90 Hgb 15.4 Hct 45.6 MCV 93.1 MCH 31.4 MCHC 33.8 RDW 13.7 RDW Differential 46.1 H Plt Count 241 MPV 10.2 Immature Gran % (Auto) 0.300 Neut % (Auto) 72.8 H Lymph % (Auto) 10.9 L [place] % (Auto) 10.9 H Eos % (Auto) 5.0 Baso % (Auto) 0.1 Absolute Neuts (auto) 10.4 H Absolute Lymphs (auto) 1.55 Total Counted Not Reportable Differential Comment Diff Path Review May foll Sodium 135 L Potassium 4.0 Chloride 102 Carbon Dioxide 21.0 Anion Gap 12 BUN 23 H Creatinine 1.70 H Estim Creat Clear Calc 53.73 Est GFR (MDRD) Af Amer 53 L Est GFR (MDRD) Non-Af 44 L BUN/Creatinine Ratio 13.5 Glucose 92 Calcium 8.9 Total Bilirubin 0.80 AST 64 H ALT 41 Alkaline Phosphatase 55 Troponin I < 0.015 Total Protein 6.1 L Albumin 2.8 L Globulin 3.3 Albumin/Globulin Ratio 0.8 L Lipase 65 L Assessment/Plan Patient seen and examined independently. Data reviewed. I agree with the above note by the physician assistant analyst. 1. Ascites: Could be malignant versus cirrhotic. Discussed with the radiology and expanded patient be off clopidogrel for 5 days prior to paracentesis. Discussed with the patient that at our facility at not feasible to do this procedure before 5 days which would take it until Wednesday as his last dose was last evening. Advised patient to hold off in his clopidogrel as well as aspirin until the paracentesis has been performed and then to resume those medications. I spent time talking with the rfid technician and they are going to tentatively try to schedule patient for the to have the paracentesis performed. 2. History of mantle cell lymphoma: Patient was going to go back to [facility] to see his oncologist on the of this month. Patient interested in following up with the [place] [facility] group here. States that he is no longer interested in working with [facility] oncologist. 3. Recent TIA: As above, hold aspirin and clopidogrel. Continue atorvastatin. Code Visit Office Visits / Consults: [id number] OP Consult L5
--- NOTE | 2018-08-16 17:04 | PCM.DC ---
- Discharge Diagnoses Current Active Problems: Current Active and Chronic Problems Ascites (Acute) Dyspnea (Acute) Lymphoma (Acute) You will use the following diet at home:: Cardiac Your food should be the consistency of: Regular Discharge Activity: Return to Normal Activity Call your doctor if you observe: - - increased abdominal distention/pain Allergies/Adverse Reactions: Allergies adhesive tape Allergy (Verified 08/12/18 16:46) Rash amoxicillin Allergy (Verified 08/12/18 16:46) Rash levofloxacin Allergy (Verified 08/12/18 16:46) Rash aspirin Adverse Reaction (Verified 08/12/18 16:46) Upset Stomach Penicillins Adverse Reaction (Verified 08/16/18 16:18) Upset Stomach Medications to take at Discharge Pantoprazole Sodium [Protonix] 40 mg PO DAILY 02/28/13 Aspirin [Aspirin, Baby] 81 mg PO DAILY@0800 tab.chew 08/13/18 Atorvastatin Calcium [Lipitor] 80 mg PO QHS #30 tab 08/13/18 Clopidogrel Bisulfate [Plavix] 75 mg PO DAILY #21 tab 08/13/18 Primary Care Physician: Veto Lopez DO [Primary Care Provider] - Test Results: Test results from this visit will be discussed in further detail at your follow-up appointment, if applicable. Please Follow Up With: Dc Ryan MD When: Oncology. Call [phone] for appointment Please Follow Up With: [facility] When: 09/04/18 Please Follow Up With: Radiology Dept When: for paracentesis. Eligibility Analyst will call for appointment time. Proposed Discharge Date: 08/16/18
[2018-08-17 14:33] LABS: Pathologist Review Reviewed
== END 2018-08-16 18:22 | disposition short-term general hospital (02) ==
PROVIDERS: Emergency Provider Emergency Medicine; Family Provider Family Medicine; PCP Family Medicine
DX: R18.8 Other ascites (principal); R06.00 Dyspnea, unspecified; C85.90 Non-Hodgkin lymphoma, unspecified, unspecified site; K74.60 Unspecified cirrhosis of liver; J84.10 Pulmonary fibrosis, unspecified; K21.9 Gastro-esophageal reflux disease without esophagitis; L98.491 Non-pressure chronic ulcer of skin of other sites limited to breakdown of skin; Z86.14 Personal history of Methicillin resistant Staphylococcus aureus infection; Z86.73 Personal history of transient ischemic attack (TIA), and cerebral infarction without residual deficits; Z79.02 Long term (current) use of antithrombotics/antiplatelets; Z79.82 Long term (current) use of aspirin; Z79.899 Other long term (current) drug therapy; Z87.891 Personal history of nicotine dependence
CPT/HCPCS: 74177; 80053; 83690; 84484; 85025; 93005; 96361; 96374; 96375; 99285; Q9967; A4216; J2405

== ENCOUNTER 2018-08-20 11:51 | Inpatient (IN) | payer OTHER, MEDICARE, SELFPAY ==
[2018-08-20] VITALS (16 sets, daily range): BP systolic 98–139; BP diastolic 48–83; PULSE 74–109; RESP 15–22; TEMP 36.6–36.9; O2SAT 96–99; BMI 36.6; BMI 34.7
--- NOTE | 2018-08-20 12:48 | ED.DCSUM_ITS ---
History of Present Illness Informant: Patient Onset: Days Narrative: Patient presents to the ED with abdominal distention and discomfort for the last week. He was recently discharged on August 16 after being admitted for this abdominal distention and difficulty breathing with exertion. He does have a history of mast cell lymphoma and sees an oncologist in [place]. He states that he has an appointment in 3 days to establish care with an oncologist at [facility]. Prior to his most recent admission, he was admitted prior to this for TIA work-up and placed on Plavix and aspirin. After being discharged on August 16, he was discontinued on the Plavix and aspirin so that he can have a paracentesis. They did not want to do a paracentesis while he was admitted due to the Plavix and aspirin. Patient states he does not appointment in 4 days to have an outpatient paracentesis, however feels he cannot wait until then. He is extremely distended and uncomfortable. He reports associated shortness of breath. They did CT his abdomen prior to his last admission which showed cirrhosis with associated ascites. There is no evidence of bowel obstruction at that time. Patient denies any nausea, vomiting, or constipation. <Anika Esparza - Last Filed: 08/20/18 15:31> <Gianluca Tirado - Last Filed: 08/20/18 15:50> Chief Complaint: Abd Pain Past Medical History Surgical History: - Smoking Status: Former smoker - Family History Maternal Family History: Reports: No pertinent history Paternal Family History: Reports: Cancer, Diabetes, - <Anika Esparza - Last Filed: 08/20/18 15:31> <Gianluca Tirado - Last Filed: 08/20/18 15:50> - Allergies and Home Meds Allergies/Adverse Reactions: Allergies adhesive tape Allergy (Verified 08/12/18 16:46) Rash amoxicillin Allergy (Verified 08/12/18 16:46) Rash levofloxacin Allergy (Verified 08/12/18 16:46) Rash aspirin Adverse Reaction (Verified 08/12/18 16:46) Upset Stomach Penicillins Adverse Reaction (Verified 08/16/18 16:18) Upset Stomach Review of Systems General: Denies: Chills, Fever, Sweats Eyes: Denies: Visual changes - bilaterally, Diplopia ENT: Denies: Rhinorrhea, Sore throat Cardiovascular: Denies: Chest pain, Palpitations Respiratory: Reports: Dyspnea, Dyspnea on exertion. Denies: Cough Gastrointestinal: Reports: Abdominal pain, - - Abdominal distention. Denies: Nausea, Vomiting, Diarrhea, Melena, Hematochezia Genitourinary: Denies: Dysuria, Hematuria, Frequency Musculoskeletal: Denies: Back pain, Extremity Pain Skin: Denies: Rash, Wounds Neurological: Denies: Headache, Weakness, Numbness <Anika Esparza - Last Filed: 08/20/18 15:31> Physical Exam Vital Signs/Narrative: Vital Signs Temp Pulse Resp BP Pulse Ox 08/20/18 11:52 98.2 F 109 H 18 113/83 H 97 General: Well nourished, Well developed, No Acute Distress Head: Normocephalic, Atraumatic Eyes: Perrl, EOMI ENT: Moist mucous membranes, No rhinorrhea Neck: Supple, Nontender Cardiovascular: Regular rate, Regular rhythm, No murmurs Respiratory: No distress, CTA bilaterally, Chest nontender Abdomen: Soft, Normal bowel sounds, Tender - Generalized, - - Significant abdominal distension. Back: Nontender, Normal Inspection Extremities: Nontender, No edema Skin: Normal color, No rash Neurological: Alert, Oriented x3, Cranial nerves II-XII grossly intact, Normal Strength, Normal Sensation Psychological: Normal affect, Normal Mood <Anika Esparza - Last Filed: 08/20/18 15:31> Vital Signs/Narrative: Vital Signs Temp Pulse Resp BP Pulse Ox 08/20/18 14:31 98.4 F 102 H 18 128/81 H 98 08/20/18 11:52 98.2 F 109 H 18 113/83 H 97 <Gianluca Tirado - Last Filed: 08/20/18 15:50> Diagnostic/Tx/Re-eval - Medical Decision Making Patient presents to the ED with abdominal distention and worsening ascites. He does have a history of cirrhosis and mast cell lymphoma. He is scheduled to establish care with an oncologist in the area in 4 days. In 5 days, he is scheduled to have a paracentesis but does not feel he can wait until then. His abdomen is significantly distended on physical exam. Vital signs stable. EKG indicates sinus tachycardia with a ventricular rate of 105 bpm. AL interval 166. QRS 86. QT 338. No STEMI. CBC indicates a worsening leukocytosis comp ared to when patient was discharged on August 16. His leukocytosis has increased from 14.2-23. He is also now hyponatremic at 126. His renal function is worsened. Coags are unremarkable. At this time, I do feel patient warrants admission and discussed the patient's case with Dr. Coley, who evaluated the patient in the ED and accepted to his service. This could be the development of SBP. Lactic acid was 4.5. <Anika Esparza - Last Filed: 08/20/18 15:31> - Medical Decision Making Patient was seen with me. I did a [id number] examination with the patient. Patient presents with worsening abdominal pain and ascites. Patient complains of diffuse abdominal pain. Patient has a history of cirrhosis and mast cell lymphoma. Patient is scheduled for paracentesis in 4 days. Patient states he does not think he will be able to make it until that time. Patient denies any fevers or chills. Vital signs are stable. Patient is afebrile. Patient is in no acute distress. Heart was regular rate and rhythm. Lungs are clear and equal bilaterally. Abdomen is distended. There is diffuse tenderness. There is no rebound or guarding noted. Cranial nerves II through XII are intact. There are no focal motor or sensory deficits noted. CBC showed an increase in his leukocytosis. Sodium was low at 126. Kidney function is also worsened. Case was discussed with Dr. Coley. He will be to evaluate the patient. He will admit the patient to his service. Patient understood and was agreeable with the plan. All questions were answered. <Gianluca Tirado - Last Filed: 08/20/18 15:50>
--- NOTE | 2018-08-20 12:53 | EKG12_ITS ---
Test Reason : ABD PAIN Blood Pressure : / mmHG Vent. Rate : 105 BPM Atrial Rate : 105 BPM P-R Int : 166 ms QRS Dur : 086 ms QT Int : 338 ms P-R-T Axes : 021 076 069 degrees QTc Int : 446 ms Sinus tachycardia Otherwise normal ECG Confirmed by NAMITA HER, SAMUEL ([id number]), editorial cartoonist TRIXIE RAMON ([id number]) on 08/23/2018 1:55:41 PM Referred By: LILA Confirmed By:SAMUEL BREAUX MD
[2018-08-20 13:41] LABS: ALB/GLOB Ratio 0.8 RATIO (0.9-2.4); AST(SGOT) 46 U/L (15-37); Alanine Aminotransfer ALT/SGPT 39 U/L (16-61); Albumin, Serum 2.6 g/dL (3.2-5.0); Alkaline Phosphatase 63 U/L (45-117); Anion Gap 12 (5-15); BUN 46 mg/dL (7-18); BUN/Creat Ratio 22.8 RATIO (10-20); Calcium,Total 9.2 mg/dL (8.5-10.1); Chloride 97 mmol/L (98-107); Creatinine, Serum 2.02 mg/dL (0.70-1.30); EST Glomerular Filtration Rate 36 mL/min (>60); Est Glom Filt Rate - Afr Amer 43 mL/min (>60); Estimated Creatinine Clearance 45.21 ml/min; Globulin 3.3 g/dL (2.2-4.2); Glucose 99 mg/dL (74-106); Lipase 98 U/L (73-393); Potassium 4.1 mmol/L (3.5-5.1); Protein, Total 5.9 g/dL (6.4-8.2); Sodium Level 126 mmol/L (136-145)
[2018-08-20 13:43] LABS: Absolute Lymphocyte Count 1.23 X10^3/ul (0.83-4.51); Absolute Neutrophil Count 18.5 X10^3/uL (2.0-7.7); Basophil# 0.02 X10^3/uL; Basophil% 0.1 % (0-1); Eosinophil# 1.52 X10^3/uL; Eosinophils% 6.5 % (0-5); Hematocrit 45.9 % (40-54); Hemoglobin 15.4 g/dl (13.0-16.5); Lymphocyte # 1.23 X10^3/ul (4.0); Lymphocyte % 5.2 % (19-41); Mean Corp Hgb Conc 33.6 g/gl (32-36); Mean Corpuscular Volume 92.5 fL (80-94); Mean Platelet Vol. 10.2 fl (6.2-12.0); Monocyte% 8.9 % (0-10); Neutrophil # 18.48 X10^3/uL (2.7-7.7); Neutrophil % 78.5 % (47-70); Platelet Count 268 K/mm3 (150-450); RBC Distribution Width CV 14.1 % (11.6-14.6); RBC Distribution Width SD 47.4 fl (35.1-43.9); Red Blood Count 4.96 M/mm3 (4.6-6.2); White Blood Count 23.6 K/mm3 (4.4-11.0)
[2018-08-20 13:44] LABS: Differential Indicated SCAN CRITERIA MET; POSITIVE COUNT NO; POSITIVE DIFFERENTIAL YES; POSITIVE MORPHOLOGY NO
[2018-08-20 13:58] LABS: Differential Comment SCANNED
[2018-08-20 14:12] LABS: International Normalized Ratio 1.3; Prothrombin Time (Protime)PT. 15.5 SECONDS (11.7-14.9)
[2018-08-20 14:13] LABS: Partial Thromboplast Time 28.5 Seconds (24.1-36.2)
[2018-08-20] MEDS: HYDROcodone Bitartrate/Apap 5/325 Tablet PO (14:52)
--- NOTE | 2018-08-20 14:57 | NURSING ---
DR SOLA CARRASCO
--- NOTE | 2018-08-20 15:02 | NURSING ---
MED SURG KITTOE CIRRHOSIS, ASCITES
[2018-08-20 15:28] LABS: Lactic Acid 4.1 mmol/L (0.4-2.0)
--- NOTE | 2018-08-20 15:49 | HP.PCM_ITS ---
Problem List (1) Speech disturbance Status: Resolved (2) GERD (gastroesophageal reflux disease) Status: Chronic (3) Granuloma annulare Status: Chronic (4) Late effect of radiation Status: Chronic Comment: T66.xxxS late effect radiation left arm (5) Lung fibrosis Status: Chronic (6) Non-healing ulcer of upper extremity Status: Chronic Qualifiers: Non-pressure ulcer stage: limited to breakdown of skin Qualified Code(s): L98.491 - Non-pressure chronic ulcer of skin of other sites limited to breakdown of skin Comment: L98.499 8 cm nonhealing infected radiation ulcer lesion left arm (7) Personal history of Methicillin resistant Staphylococcus aureus infection Status: Chronic Comment: Z86.14 (8) Personal history of lymphoma Status: Chronic Comment: Z85.72 (9) 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 Patient in addition did complain of shortness of breath. In view of worsening symptoms he presented to the emergency department. CT of the abdomen obtained in the emergency department demonstrated cirrhotic liver with diffuse abdominal ascites and induration of the emergency room with scattered subcentimeter omental lymph node suggestive of omentum metastasis. Patient underwent emergency ultrasound-guided paracentesis by Dr. Dey in the ED. 5 L of clear ascitic fluid was obtained. Cultures were sent. Patient lactic acid level came back at 4.1 consistent with severe sepsis. Kidney function had worsened since his admission. 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 Allergies adhesive tape Allergy (Verified 08/12/18 16:46) Rash amoxicillin Allergy (Verified 08/12/18 16:46) Rash levofloxacin Allergy (Verified 08/12/18 16:46) Rash aspirin Adverse Reaction (Verified 08/12/18 16:46) Upset Stomach Penicillins Adverse Reaction (Verified 08/16/18 16:18) Upset Stomach Home Medications: Ambulatory Orders Medication Instructions Recorded Pantoprazole Sodium [Protonix] 40 mg PO DAILY 02/28/13 Atorvastatin Calcium [Lipitor] 80 mg PO QHS #30 tab 08/13/18 Surgical History: - Psychiatric History: No pertinent psych hx Smoking Status: Former smoker - *Family History Maternal History Items: No pertinent history Paternal History Items: Cancer, Diabetes, - Review of Systems Constitutional: Reports: Anorexia, Weakness HEENT: Denies: Head Aches, Sinus Congestion, Sinus Drainage Cardiovascular: Denies: Chest Pain, Orthopnea, Palpitations, Paroxysmal Noc. Dyspnea Respiratory: Reports: Shortness of Breath Gastrointestinal: Reports: Abdominal Pain Genitourinary: Denies: Dysuria, Frequency, Hematuria, Urgency Musculoskeletal: Denies: Joint Pain, Joint Tenderness Skin: Denies: Rash Neurological: Denies: Focal weakness, Numbness, Tingling Psychiatric: Denies: Homicidal Ideations, Suicidal Ideations VTE Information - Inpt Only VTE Present on Admission: No VTE Mechan Device Prophylaxis: None VTE Pharm Prophylaxis ordered?: Yes Patient Problems: Active and Suspected Problems Ascites (Acute) SBP (spontaneous bacterial peritonitis) (Acute) Severe sepsis (Acute) ARLIN (acute kidney injury) (Acute) Objective: GENERAL: Appears ill looking HEENT: Atraumatic; EYES; Anicteric, Normal Conjunctiva NECK; supple, normal thyroid, RESPIRATORY: Diminished to auscultation CARDIOVASCULAR: Regular S1 S2, GI: Markedly distended and dull to percussion : No Renal angle tenderness; EXTREMITIES: No edema, no clubbing, no cyanosis. MUSCULOSKELETAL: No Joint Tenderness; NEURO: Awake; no lateralizing signs. SKIN: No Rash PSYCH; Normal affect - Physical Exam Vital Signs Temp Pulse Resp BP Pulse Ox 98.4 F 101 H 18 105/74 98 08/20/18 14:31 07/06/19 15:21 08/20/18 14:31 08/20/18 15:21 08/20/18 14:31 Oxygen Delivery Method Room Air Weight: 129.5 kg Body Mass Index (BMI) 36.6 Finger Stick Blood Glucose 107 Laboratory Tests Past 24 Hrs 08/20/18 08/20/18 08/20/18 13:15 13:15 13:40 WBC 23.6 H RBC 4.96 Hgb 15.4 Hct 45.9 MCV 92.5 MCH 31.0 MCHC 33.6 RDW 14.1 RDW Differential 47.4 H Plt Count 268 MPV 10.2 Immature Gran % (Auto) 0.800 Neut % (Auto) 78.5 H Lymph % (Auto) 5.2 L [place] % (Auto) 8.9 Eos % (Auto) 6.5 H Baso % (Auto) 0.1 Absolute Neuts (auto) 18.5 H Absolute Lymphs (auto) 1.23 Total Counted Not Reportable Differential Comment SCANNED PT 15.5 H INR 1.3 APTT 28.5 Sodium 126 L Potassium 4.1 Chloride 97 L Carbon Dioxide 17.0 L Anion Gap 12 BUN 46 H Creatinine 2.02 H Estim Creat Clear Calc 45.21 Est GFR (MDRD) Af Amer 43 L Est GFR (MDRD) Non-Af 36 L BUN/Creatinine Ratio 22.8 H Glucose 99 Lactic Acid Calcium 9.2 Total Bilirubin 0.70 AST 46 H ALT 39 Alkaline Phosphatase 63 Total Protein 5.9 L Albumin 2.6 L Globulin 3.3 Albumin/Globulin Ratio 0.8 L Lipase 98 08/20/18 14:50 WBC RBC Hgb Hct MCV MCH MCHC RDW RDW Differential Plt Count MPV Immature Gran % (Auto) Neut % (Auto) Lymph % (Auto) [place] % (Auto) Eos % (Auto) Baso % (Auto) Absolute Neuts (auto) Absolute Lymphs (auto) Total Counted Differential Comment PT INR APTT Sodium Potassium Chloride Carbon Dioxide Anion Gap BUN Creatinine Estim Creat Clear Calc Est GFR (MDRD) Af Amer Est GFR (MDRD) Non-Af BUN/Creatinine Ratio Glucose Lactic Acid 4.1 H* Calcium Total Bilirubin AST ALT Alkaline Phosphatase Total Protein Albumin Globulin Albumin/Globulin Ratio Lipase Assessment/Plan All Active Problems Speech disturbance (Resolved) TIA (transient ischemic attack) (Resolved) Ascites (Acute) SBP (spontaneous bacterial peritonitis) (Acute) Severe sepsis (Acute) ARLIN (acute kidney injury) (Acute) Patient is a 62-year-old gentleman with history of mantle cell lymphoma status post chemoradiation currently in remission recentralization for TIA, no nalcoholic fatty liver disease with subsequent cirrhosis of the liver presented with abdominal pain and distention 1. Abdominal pain suspected to be secondary to spontaneous bacterial peritonitis with underlying cirrhosis of the liver with ascites. Patient underwent emergency abdominal paracentesis in the ED fluid analysis sent patient started on cefepime (patient is allergic to penicillin) 2. Severe sepsis secondary to suspected SBP patient managed per protocol with aggressive IV fluid resuscitation (this poses a challenge in view of patient's ascites) patient in addition did receive albumin. Cultures sent as discussed above repeat lactic acid level ordered 3. Cirrhosis of the liver with ascites underwent ultrasound-guided paracentesis in the ED with 5 L of ascitic fluid taken off and order was given for patient to receive 25 g of albumin 4. Hyponatremia secondary to fluid overload status 5. Acute kidney injury. Patient creatinine on 08/13/2018 was 1.17 on discharge was 1.70 presenting creatinine 2.02 started on IV fluid resuscitation as stated above 6. Dyslipidemia-patient is on statin therapy, continued at home dose 7. History of mantle cell lymphoma CT of the abdomen obtained was questionable for recurrent disease with metastasis patient is scheduled to be evaluated by oncology (Dr. Ryan) as outpatient 8. GERD PPI 9. Morbid obesity with BMI of 36.7 10. DVT prophylaxis; SC heparin Code Visit Inpatient E&M: 26898 Init Hosp L3
--- NOTE | 2018-08-20 16:15 | ED.RN ---
multiple attempts by 2 RNs for IV access. lab was able to obtain labs. outside company was called for midline placement but cannot arrive until 2099. ED physician will place central line prior to going to ICU.
--- NOTE | 2018-08-20 17:04 | ED.RN ---
lab was called at 1445 to draw 2nd set of blood cultures. dry cleaning supervisor was able to get IV access. holding off on central line and will call ingot caster for midline.
--- NOTE | 2018-08-20 17:49 | ED.RN ---
5,000 ml was removed by paracentesis by Dr. Le. pt tolerated well.
--- NOTE | 2018-08-20 17:50 | ED.RN ---
pt transferred to ICU. lab aware of 2nd cultures still needed. antibiotic sent with pt. on arrival to floor, SL no longer working. ICU nurses to attempt restart. aware of call out to Access.
[2018-08-20 18:50] LABS: Body Fluid Mononuclear WBC % 13.4 %; Body Fluid Polynuclear WBC # 26.551 10^3/uL; Body Fluid Polynuclear WBC % 86.6 %
[2018-08-20 18:52] LABS: Auto B Fluid Analyzer BKGD Ct COUNTS W/IN LIMITS (W/IN LIMITS); Color/Body Fluid YELLOW; Source- Body Fluid ASCITES FLUID; Specific Gravity, Body Fluid 1.022
[2018-08-20 18:58] LABS: Reflex Lactate? Y
[2018-08-20 19:04] LABS: Protein, Body Fluid 3.3 g/dL (Not Establ.)
[2018-08-20 19:18] LABS: Lymphocytes 7 %; Monocytes 20 %; Neutrophil (Segs) 73 %
[2018-08-20 19:19] LABS: Appearance/Body Fluid TURBID; Body Fluid QC Type(s) BF1Q
[2018-08-20 19:27] LABS: Glucose, Body Fluid 15 mg/dL (40-70); LDH,Body Fluid 3449 Units/l (Not Establ.)
[2018-08-20] MEDS: 0.9% Normal Saline 1,000 ML 125 ML IV (20:15)
[2018-08-20] MEDS: Albumin Human 25% (100 mL) 25 GM/100 ML BAG IV (20:16)
[2018-08-20 20:30] LABS: Albumin, Serum 2.3 g/dL (3.2-5.0)
[2018-08-20 20:44] LABS: Anion Gap 13 (5-15); BUN 51 mg/dL (7-18); Calcium,Total 8.7 mg/dL (8.5-10.1); Chloride 95 mmol/L (98-107); Creatinine, Serum 1.89 mg/dL (0.70-1.30); EST Glomerular Filtration Rate 39 mL/min (>60); Est Glom Filt Rate - Afr Amer 47 mL/min (>60); Estimated Creatinine Clearance 48.32 ml/min; Glucose 77 mg/dL (74-106); Potassium 4.2 mmol/L (3.5-5.1); Sodium Level 131 mmol/L (136-145)
[2018-08-20 21:07] LABS: Lactic Acid 2.9 mmol/L (0.4-2.0)
[2018-08-20] MEDS: 0.9% NaCl Peripheral Flush Adult/Peds IV (21:34)
[2018-08-20] MEDS: Atorvastatin Calcium 80 MG Tablet PO (21:35)
[2018-08-20] MEDS: Heparin Injection (Vial) 5,000 UNIT/ML VIAL 5000 UNIT SC (21:35)
[2018-08-21] VITALS (16 sets, daily range): BP systolic 103–158; BP diastolic 51–72; PULSE 95–108; RESP 14–22; TEMP 36.4–37.2; O2SAT 95–99
[2018-08-21 00:44] LABS: Anion Gap 9 (5-15); BUN 49 mg/dL (7-18); BUN/Creat Ratio 26.6 RATIO (10-20); Calcium,Total 8.3 mg/dL (8.5-10.1); Chloride 96 mmol/L (98-107); Creatinine, Serum 1.84 mg/dL (0.70-1.30); EST Glomerular Filtration Rate 40 mL/min (>60); Est Glom Filt Rate - Afr Amer 48 mL/min (>60); Estimated Creatinine Clearance 49.64 ml/min; Glucose 81 mg/dL (74-106); Potassium 3.8 mmol/L (3.5-5.1); Sodium Level 128 mmol/L (136-145)
[2018-08-21 05:04] LABS: Absolute Lymphocyte Count 1.25 X10^3/ul (0.83-4.51); Absolute Neutrophil Count 17.2 X10^3/uL (2.0-7.7); Basophil# 0.01 X10^3/uL; Eosinophil# 1.22 X10^3/uL; Eosinophils% 5.6 % (0-5); Hematocrit 39.5 % (40-54); Hemoglobin 13.2 g/dl (13.0-16.5); Lymphocyte # 1.25 X10^3/ul (4.0); Lymphocyte % 5.8 % (19-41); Mean Corp Hgb Conc 33.4 g/gl (32-36); Mean Corpuscular Hgb 30.6 pg (27.0-32.0); Mean Corpuscular Volume 91.4 fL (80-94); Monocyte# 1.76 X10^3/uL; Monocyte% 8.1 % (0-10); Neutrophil # 17.24 X10^3/uL (2.7-7.7); Neutrophil % 79.3 % (47-70); Platelet Count 238 K/mm3 (150-450); RBC Distribution Width CV 14.2 % (11.6-14.6); RBC Distribution Width SD 46.5 fl (35.1-43.9); Red Blood Count 4.32 M/mm3 (4.6-6.2); White Blood Count 21.7 K/mm3 (4.4-11.0)
[2018-08-21 05:05] LABS: Differential Indicated SCAN CRITERIA MET; POSITIVE COUNT NO; POSITIVE DIFFERENTIAL YES; POSITIVE MORPHOLOGY NO
[2018-08-21 05:20] LABS: ALB/GLOB Ratio 1.1 RATIO (0.9-2.4); AST(SGOT) 28 U/L (15-37); Alanine Aminotransfer ALT/SGPT 28 U/L (16-61); Albumin, Serum 2.6 g/dL (3.2-5.0); Alkaline Phosphatase 48 U/L (45-117); Anion Gap 11 (5-15); BUN 48 mg/dL (7-18); BUN/Creat Ratio 27.7 RATIO (10-20); Calcium,Total 8.1 mg/dL (8.5-10.1); Chloride 96 mmol/L (98-107); Creatinine, Serum 1.73 mg/dL (0.70-1.30); EST Glomerular Filtration Rate 43 mL/min (>60); Est Glom Filt Rate - Afr Amer 52 mL/min (>60); Estimated Creatinine Clearance 52.79 ml/min; Globulin 2.3 g/dL (2.2-4.2); Glucose 80 mg/dL (74-106); Magnesium 2.1 mg/dL (1.6-2.6); Potassium 3.9 mmol/L (3.5-5.1); Protein, Total 4.9 g/dL (6.4-8.2); Sodium Level 130 mmol/L (136-145)
[2018-08-21] MEDS: 0.9% Normal Saline 1,000 ML 125 ML IV (05:20)
[2018-08-21 05:38] LABS: Differential Comment SCANNED; Vacuolated Cells 1+
[2018-08-21] MEDS: Heparin Injection (Vial) 5,000 UNIT/ML VIAL 5000 UNIT SC ×3 (06:54→21:21)
--- NOTE | 2018-08-21 07:06 | PCM.PN.HOSP ---
Patient Problems: Active and Suspected Problems Ascites (Acute) SBP (spontaneous bacterial peritonitis) (Acute) Severe sepsis (Acute) ARLIN (acute kidney injury) (Acute) Subjective: Patient seen complains of abdominal pain. He underwent ultrasound-guided with 5 L of ascitic fluid taken off. Initial fluid analysis demonstrated WBC count greater than 29K consistent with BP with a malignancy as a differential. Patient started on broad antibiotic therapy with cefepime Objective: GENERAL: Appears ill looking HEENT: Atraumatic; EYES; Anicteric, Normal Conjunctiva NECK; supple, normal thyroid, RESPIRATORY: Diminished to auscultation CARDIOVASCULAR: Regular S1 S2, GI: Markedly distended and dull to percussion : No Renal angle tenderness; EXTREMITIES: No edema, no clubbing, no cyanosis. MUSCULOSKELETAL: No Joint Tenderness; NEURO: Awake; no lateralizing signs. SKIN: No Rash PSYCH; Normal affect Vitals/I&O's: Vital Signs Temp Pulse Resp BP Pulse Ox 98.2 F 98 19 H 147/62 H 99 08/21/18 04:00 08/21/18 05:00 08/21/18 05:00 08/21/18 05:00 08/21/18 05:00 Oxygen Delivery Method Room Air Weight: 126.6 kg Body Mass Index (BMI) 34.7 Finger Stick Blood Glucose 107 Intake and Output for Last 24 Hours 08/19/18 08/20/18 08/21/18 23:59 23:59 23:59 Intake Total 1148 / 1148 1610 / 1610 Output Total 225 / 225 700 / 700 Balance 923 / 923 910 / 910 Microbiology Past 72 Hours 08/20/18 16:20 Fluid - Ascites Gram Stain - Preliminary Laboratory Results 08/20/18 13:15: WBC 23.6 H, RBC 4.96, Hgb 15.4, Hct 45.9, MCV 92.5, MCH 31.0, MCHC 33.6, RDW 14.1, RDW Differential 47.4 H, Plt Count 268, MPV 10.2, Immature Gran % (Auto) 0.800, Neut % (Auto) 78.5 H, Lymph % (Auto) 5.2 L, [place] % (Auto) 8.9, Eos % (Auto) 6.5 H, Baso % (Auto) 0.1, Absolute Neuts (auto) 18.5 H, Absolute Lymphs (auto) 1.23, Total Counted Not Reportable, Differential Comment SCANNED, Diff Path Review May foll 08/20/18 13:15: Sodium 126 L, Potassium 4.1, Chloride 97 L, Carbon Dioxide 17.0 L, Anion Gap 12, BUN 46 H, Creatinine 2.02 H, Estim Creat Clear Calc 45.21, Est GFR (MDRD) Af Amer 43 L, Est GFR (MDRD) Non-Af 36 L, BUN/Creatinine Ratio 22.8 H, Glucose 99, Calcium 9.2, Total Bilirubin 0.70, AST 46 H, ALT 39, Alkaline Phosphatase 63, Total Protein 5.9 L, Albumin 2.6 L, Globulin 3.3, Albumin/Globulin Ratio 0.8 L, Lipase 98 08/20/18 13:40: PT 15.5 H, INR 1.3, APTT 28.5 08/20/18 14:50: Lactic Acid 4.1 H* 08/20/18 16:20: Fluid Glucose 15 L*, Fluid LDH 3449 08/20/18 16:20: Fluid pH Pending, Fluid Amylase Pending 08/20/18 16:20: Fluid Total Protein 3.3 08/20/18 16:20: Fluid Source ASCITES FLUID, Fluid Color YELLOW, Fluid Appearance TURBID, Fluid Specific Grav 1.022, Fluid WBC 29.165, Fluid RBC 0.11970, Fluid Tot Cell Count 31.910, Fld Polynuclear WBCs # 26.551, Fld Polynuclear WBCs % 86.6, Fluid Mononuclear WBCs 4.110, Fld Mononuclear WBCs % 13.4, Fluid Neutrophils 73, Fluid Lymphocytes 7, Fluid Monocytes 20, Fl Pathologist Comment May follow, Fluid Comment 2 SEE COMMENT 08/20/18 20:05: Albumin 2.3 L 08/20/18 20:05: Sodium 131 L, Potassium 4.2, Chloride 95 L, Carbon Dioxide 23.0, Anion Gap 13, BUN 51 H, Creatinine 1.89 H, Estim Creat Clear Calc 48.32, Est GFR (MDRD) Af Amer 47 L, Est GFR (MDRD) Non-Af 39 L, BUN/Creatinine Ratio 27.0 H, Glucose 77, Calcium 8.7 08/20/18 20:05: Lactic Acid 2.9 H 08/20/18 23:55: Sodium 128 L, Potassium 3.8, Chloride 96 L, Carbon Dioxide 23.0, Anion Gap 9, BUN 49 H, Creatinine 1.84 H, Estim Creat Clear Calc 49.64, Est GFR (MDRD) Af Amer 48 L, Est GFR (MDRD) Non-Af 40 L, BUN/Creatinine Ratio 26.6 H, Glucose 81, Calcium 8.3 L 08/21/18 04:45: WBC 21.7 H, RBC 4.32 L, Hgb 13.2, Hct 39.5 L, MCV 91.4, MCH 30.6, MCHC 33.4, RDW 14.2, RDW Differential 46.5 H, Plt Count 238, MPV 10.0, Immature Gran % (Auto) 1.200 H, Neut % (Auto) 79.3 H, Lymph % (Auto) 5.8 L, [place] % (Auto) 8.1, Eos % (Auto) 5.6 H, Baso % (Auto) 0.0, Absolute Neuts (auto) 17.2 H, Absolute Lymphs (auto) 1.25, Total Counted Not Reportable, Differential Comment SCANNED, Diff Path Review June foll, Toxic Vacuolation 1+ 08/21/18 04:45: Sodium 130 L, Potassium 3.9, Chloride 96 L, Carbon Dioxide 23.0, Anion Gap 11, BUN 48 H, Creatinine 1.73 H, Estim Creat Clear Calc 52.79, Est GFR (MDRD) Af Amer 52 L, Est GFR (MDRD) Non-Af 43 L, BUN/Creatinine Ratio 27.7 H, Glucose 80, Calcium 8.1 L, Magnesium 2.1, Total Bilirubin 1.10 H, AST 28, ALT 28, Alkaline Phosphatase 48, Total Protein 4.9 L, Albumin 2.6 L, Globulin 2.3, Albumin/Globulin Ratio 1.1 Current Medications Al Hydroxide/Mg Hydroxide (Mylanta Ii) 30 ml PO Q6H PRN PRN PRN Reason: Gastric Burning Albuterol Sulfate (Ventolin Aerosols) 2.5 mg INHALATION Q2H PRN PRN PRN Reason: Shortness of Breath/Wheezing Atorvastatin Calcium (Lipitor) 80 mg PO QHS TAZ Last Admin: 08/20/18 21:35 Dose: 80 mg Documented by: Dextrose ([id number] Syringe) 0 gm IV X1 PRN; Protocol PRN Reason: Hypoglycemia Glucagon () 1 mg IM .X1 PRN PRN Reason: Hypoglycemia Guaifenesin (Robitussin) 20 ml PO Q4H PRN PRN PRN Reason: COUGH Heparin Sodium (Porcine) (Heparin Na) 5,000 unit SC Q8 [facility] Last Admin: 08/21/18 06:54 Dose: 5,000 unit Documented by: Cefepime HCl 1 gm/ Sodium (Chloride) 50 mls @ 100 mls/hr IV Q8 [facility] Last Admin: 08/21/18 06:55 Dose: 100 mls/hr Documented by: Sodium Chloride () 1,000 mls @ 125 mls/hr IV .Q8H [facility] Last Admin: 08/21/18 05:20 Dose: 125 mls/hr Documented by: Magnesium Hydroxide (Milk Of Magnesia) 30 ml PO DAILY PRN PRN PRN Reason: Constipation Melatonin (Melatonin) 3 mg PO QHS PRN PRN PRN Reason: INSOMNIA Morphine Sulfate () 4 mg IV Q3H PRN PRN PRN Reason: Severe pain (7-10/10) Nitroglycerin (Nitrostat) 0.4 mg SUBLINGUAL Q5M PRN PRN Reason: CARDIAC/CHEST PAIN Ondansetron HCl (Zofran) 4 mg IV Q8H PRN PRN PRN Reason: NAUSEA/VOMITING Oxycodone HCl (Oxyir) 5 mg PO Q4H PRN PRN PRN Reason: Moderate Pain (4-6/10) Pantoprazole Sodium (Protonix) 40 mg PO DAILY [facility] Promethazine HCl (Phenergan) 25 mg IM Q6H PRN PRN PRN Reason: Breakthrough nausea/vomiting Sodium Chloride () 10 - 40 ml IV UD PRN PRN Reason: SALINE FLUSH Last Admin: 08/20/18 21:34 Dose: 20 ml Documented by: Sodium Chloride () 10 - 40 ml IV UD PRN PRN Reason: Midline Flush Throat Lozenges (Cepacol Sore Throat Lozenge) 1 lozenge MUCOUS MEM Q2H PRN PRN PRN Reason: Sore throat or cough Medical Necessity - Tobacco Use Smoking Status: Former smoker Assessment/Plan All Active Problems Speech disturbance (Resolved) TIA (transient ischemic attack) (Resolved) Ascites (Acute) SBP (spontaneous bacterial peritonitis) (Acute) Severe sepsis (Acute) ARLIN (acute kidney injury) (Acute) Patient is a 62-year-old gentleman with history of mantle cell lymphoma status post chemoradiation currently in remission, recent hospitalization for for TIA, nonalcoholic fatty liver disease with subsequent cirrhosis of the liver presented with abdominal pain and distention 1. Abdominal pain suspected to be secondary to spontaneous bacterial peritonitis with underlying cirrhosis of the liver with ascites. Patient underwent emergency abdominal paracentesis in the ED fluid analysis sent patient started on cefepime (patient is allergic to penicillin). Culture sent results pending ~ 08/21/2018: With patient still complained of abdominal discomfort CT of the abdomen and pelvis with oral contrast ordered for subsequent evaluation 2. Severe sepsis secondary to suspected SBP patient managed per protocol with aggressive IV fluid resuscitation (this poses a challenge in view of patient's ascites) patient in addition did receive albumin. Cultures sent as discussed above repeat lactic acid level ordered patient lactic acid level trending down 3. Cirrhosis of the liver with ascites underwent ultrasound-guided paracentesis in the ED with 5 L of ascitic fluid taken off and order was given for patient to receive 25 g of albumin 4. Hyponatremia secondary to fluid overload status 5. Acute kidney injury. Patient creatinine on 08/13/2018 was 1.17 on discharge was 1.70 presenting creatinine 2.02 started on IV fluid resuscitation as stated above 6. Dyslipidemia-patient is on statin therapy, continued at home dose 7. History of mantle cell lymphoma CT of the abdomen obtained on 08/16/2018 was questionable for recurrent disease with metastasis patient is scheduled to be evaluated by oncology (Dr. Ryan) as outpatient 8. GERD PPI 9. Morbid obesity with BMI of 36.7 10. DVT prophylaxis; SC heparin Code Visit Inpatient E&M: 79833 Subs Hosp L3
[2018-08-21] MEDS: proMETHazine 25 MG/ML Syringe IM (09:27)
--- NOTE | 2018-08-21 09:38 | NURSING ---
0935-pt transferred to [facility]310 via bed with RN. Pt's , Sherlyn, notified via phone.
--- NOTE | 2018-08-21 10:19 | CT_ITS ---
STUDY: CT ABDOMEN AND PELVIS WITHOUT CONTRAST REASON FOR EXAM: Male, 62 years old. Abdominal distention, weakness, cirrhosis with ascites, GERD, history of mast cell lymphoma. RADIATION DOSAGE (If Supplied By Facility): CTDIvol = ( 23.21 ) mGy, DLP = ( 1385.82 ) mGycm TECHNIQUE: Transaxial images were obtained from the dome of the diaphragm to the symphysis pubis without oral contrast, and without intravenous contrast. Sagittal and coronal images were reconstructed. Individualized dose optimization techniques were used for this CT. COMPARISON: CT abdomen and pelvis 08/16/2018 FINDINGS: Body wall soft tissues: Mild bilateral flank edema. Osseous structures: No acute process. Inferior chest: Evidence of COPD/emphysema. Calcified pulmonary nodule of the right lung base, calcified foci within the spleen consistent with old granulomatous disease. Normal distal esophagus. No cardiomegaly or pericardial effusion. There is pericardial lipomatosis with mild lipomatous hypertrophy of interatrial septum. Moderate three-vessel coronary calcifications. Hepatobiliary: Mildly nodular contour the liver. Speckled calcifications consistent with old granulomas disease. Unremarkable gallbladder and biliary tree. Ascites around the margins of the liver. Pancreas: Mild atrophy. Spleen: Normal. Adrenal glands: Normal. Urogenital: Normal kidneys, collecting systems, ureters, urinary bladder. Unremarkable prostate and seminal vesicles. Pelvic floor and sidewalls and retroperitoneum: No mass or adenopathy. Vasculature: Mild atherosclerosis. No evidence of varices. Stomach: No acute process. Small bowel and mesentery: There is mild circumferential thickening of several loops of small bowel, edema and mild ascites within the adjacent mesentery. This may be a manifestation of increased archive pressures in the setting of cirrhosis and portal venous hypertension. Difficult to exclude acute enteritis. Large bowel: There is sigmoid diverticulosis without diverticulitis. Normal rectum. Free fluid or free air: Small to moderate ascites. No free air. Omentum: Nodular masslike focus within the mesenteric fat adjacent to the proximal hepatic flexure of the large bowel, measuring 3.4 x 4.4 cm. Extensive omental stranding, normal small omental nodules, probably lymph nodes. Generalized omental caking. Process is quite suspicious for a metastatic process. Similar features seen on recent prior imaging. The process is more heterogeneous and more nodular than one would expect merely from omental edema. CT/Abdomen/Pel W ORAL Cont Only IMPRESSION: Omental nodularity and caking, suspicious for metastatic disease. Masslike focus within the mesentery adjacent to the distal ileum, centered on series 2 image 136, measuring approximately 4.75 cm. Masslike focus in the mesenteric fat adjacent to the hepatic flexure centered on series 2 image 86, measuring up to 4.37 cm. There is evidence of cirrhosis. Ascites. Thickening of the wall of several loops of small bowel in a pattern that may be a manifestation of enteritis but could also be a manifestation of increased uncovering pressures in the setting of cirrhosis. Electronically Signed: Dg Phelps MD at 14:26 EDT Tel , Service support ,
[2018-08-21] MEDS: Furosemide 40 MG Tablet PO (10:48)
[2018-08-21] MEDS: Pantoprazole Sodium 40 MG Tablet PO (10:48)
[2018-08-21] MEDS: Spironolactone 50 MG Tablet PO ×2 (11:21→21:21)
[2018-08-21] MEDS: Furosemide 100 MG/10 ML Vial 60 MG IV (16:46)
[2018-08-21] MEDS: Mag Hydrox/Al Hydrox/Simeth 30 ML UDC PO (18:49)
[2018-08-21] MEDS: Atorvastatin Calcium 80 MG Tablet PO (21:21)
--- NOTE | 2018-08-22 | IMM_PTH ---
PATIENT: ALFREDO ROMO LOC: 3 U#:[id number] AGE/SX: 62/M ROOM: CO310 RE08/20/[address]: Dr. Veto Barraza DO : 1955 BED: 1 DIS: 08/25/2018 SPEC #: [id number] RECD: 08/24/18 14:25 STATUS: SOUNorma REQ #: [id number] [place]: 08/22/18 00:[address]: Veto Barraza DEPT: IMMUNOHISTOCHEMISTRY RECD BY: Jessica Thomson ENTERED: 08/24/18 14:26 SP TYPE: IMMUNO OTHR DR: MD Dr. Veto Mejias DO Dr. Robert Leininger, MD Tissues: PARACENTESIS FLUID Procedures: BCL-2 (add) BCL-6 (add) CD10 (add) CD20 (add) CD23 (add) CD43 (add) CD45 (add) CD5 (add) CD79A (add) CYCLIN (add) KI-67 (add) MUM1 (add) CD3 (initial) PHYSICIAN & [address] [address] SPECIMEN INFORMATION: Tissue Source: Paracentesis fluid Clinical Info: Ascites Specimen Number: [id number] CPT code: 03585, 40519 x12 METHODOLOGY: Deparaffinized sections of prefer/formalin-fixed tissue or PAP/DQ stained slides are incubated with monoclonal/polyclonal antibodies/oligonucleotide probes. Localization is made via biotin free immunoperoxidase method. Appropriate controls are performed and reacted as expected. Results on target cell population are indicated in the following table: RESULTS: ANTIBODY / CLONE RESULT CD3 (PS1) negative CD5 (SP10) negative CD20 (L26) positive CD43 (L60) positive CD45 (RP2/18) positive CD79a (11E3) positive CD10 (56C6) positive CD23 (1B12) negative BCL-2 (bcl-2/100/D5) negative BCL-6 (YM217S/A8) positive, weak Cyclin D1/BCL-1 (SP4) negative MUM1 (MRQ-43) negative Ki-67 (30-9) positive, high These tests were developed and their performance characteristics determined by [facility]. They may not have been cleared or approved by the U.S. Food and Drug Administration. The FDA has determined that such clearance or approval is not necessary. INTERPRETATION: Paracentesis fluid: Consistent with involvement by non-Hodgkin B-cell lymphoma, favor follicular center cell origin. SJ:lilliam 08/25/18 Comment: Biopsy of lymph node/mass is recommended for definite classification of lymphoma. Case has been reviewed in consultation with Dr. Gamez who concurs with the above diagnosis. IDC:AM
--- NOTE | 2018-08-22 | FLU_PTH ---
PATIENT: ALFREDO ROMO LOC: MS3 U#:[id number] AGE/SX: 62/M ROOM: W[facility]310 RE08/20/[address]: Dr. Veto Barraza DO : 1955 BED: 1 DIS: 08/25/2018 SPEC #: [id number] RECD: 08/23/18 14:05 STATUS: GOPI REQ #: [id number] [place]: 08/22/18 00:[address]: Veto Barraza DEPT: CYTOLOGY RECD BY: Samuel Johnson ENTERED: 08/23/18 14:06 SP TYPE: Fluid OTHR DR: MD Dr. Veto Mejias DO Dr. Robert Leininger, MD Tissues: PARACENTESIS FLUID Procedures: Special Stain Group II Surgery Specimen Level IV Cytospin Fluid HEADER OPERATION: Ultrasound-guided paracentesis PRE-OP DIAGNOSIS: Ascites TISSUE SUBMITTED: Paracentesis fluid for cytology DIAGNOSIS CYTOLOGY Paracentesis fluid for cytology (cytospin): Consistent with involvement by non-Hodgkin B-cell lymphoma, favor follicular center cell origin. Flow cytometry study from [facility] shows CD10+ clonal B-cell population, large cells. The complete report is viewable in patient's EMR. See comment. SJ:rg 08/24/18 COMMENT Immunohistochemistry ([id number]) supports the above diagnosis. Biopsy of lymph node/mass is recommended for definite classification of the lymphoma. Please make reference to previous specimen ([id number]) right and left colon nodules, biopsies with diagnosis of consistent with non-Hodgkin mantle cell lymphoma, B-cell type. This case has been reviewed in consultation with Dr. Gamez who concurs with the above diagnosis. CYTOLOGY STUDY Slides are reviewed. CYTOLOGY GROSS Received is 100 ml of cloudy yellow fluid labeled with the patient's name and and designated per the requisition as paracentesis. Submitted for cytology preparation including cell block. / 08/23/18 TC:0 CPT: 74075, 39918
[2018-08-22] MEDS: 0.9% NaCl Peripheral Flush Adult/Peds IV ×4 (02:13→21:36)
[2018-08-22 02:30] VITALS: BP 110/87; PULSE 103; RESP 20; TEMP 36.4; O2SAT 96
[2018-08-22 06:14] LABS: ALB/GLOB Ratio 0.8 RATIO (0.9-2.4); AST(SGOT) 26 U/L (15-37); Alanine Aminotransfer ALT/SGPT 26 U/L (16-61); Albumin, Serum 2.2 g/dL (3.2-5.0); Alkaline Phosphatase 53 U/L (45-117); Anion Gap 13 (5-15); BUN 49 mg/dL (7-18); BUN/Creat Ratio 27.4 RATIO (10-20); Calcium,Total 8.2 mg/dL (8.5-10.1); Chloride 95 mmol/L (98-107); Creatinine, Serum 1.79 mg/dL (0.70-1.30); EST Glomerular Filtration Rate 41 mL/min (>60); Est Glom Filt Rate - Afr Amer 50 mL/min (>60); Estimated Creatinine Clearance 51.02 ml/min; Globulin 2.7 g/dL (2.2-4.2); Glucose 76 mg/dL (74-106); Potassium 4.2 mmol/L (3.5-5.1); Protein, Total 4.9 g/dL (6.4-8.2); Sodium Level 130 mmol/L (136-145)
[2018-08-22] MEDS: Heparin Injection (Vial) 5,000 UNIT/ML VIAL 5000 UNIT SC ×2 (06:30→13:57)
[2018-08-22 06:32] LABS: Hematocrit 42.4 % (40-54); Hemoglobin 14.1 g/dl (13.0-16.5); Mean Corp Hgb Conc 33.3 g/gl (32-36); Mean Corpuscular Hgb 30.2 pg (27.0-32.0); Mean Corpuscular Volume 90.8 fL (80-94); Mean Platelet Vol. 10.4 fl (6.2-12.0); Platelet Count 256 K/mm3 (150-450); RBC Distribution Width CV 14.3 % (11.6-14.6); RBC Distribution Width SD 46.5 fl (35.1-43.9); Red Blood Count 4.67 M/mm3 (4.6-6.2); White Blood Count 26.3 K/mm3 (4.4-11.0)
[2018-08-22 06:35] LABS: Differential Indicated MANUAL DIFF; POSITIVE COUNT NO; POSITIVE DIFFERENTIAL YES; POSITIVE MORPHOLOGY YES
[2018-08-22 07:12] LABS: Eosinophil 7 % (0-5); Lymphocyte 3 % (19-41); Monocyte 5 % (0-10); Neutrophil-Band 42 % (0-5); Neutrophil-Segmented 43 % (47-70); Platelet Estimate ADEQUATE (ADEQ); Total Cells Counted 100 (MANUAL DIFF)
[2018-08-22 07:13] LABS: Absolute Lymphocyte Count 0.79 X10^3/ul (0.83-4.51); Lymphocyte # 0.79 X10^3/ul (4.0); Red Cell Morphology NORM C+C NORMAL (NORM C&C)
[2018-08-22 07:14] LABS: Absolute Neutrophil Count 22.4 X10^3/uL (2.0-7.7); Neutrophil # 22.36 X10^3/uL (2.7-7.7)
[2018-08-22 07:15] VITALS: O2SAT 95
[2018-08-22 09:49] VITALS: BP 111/69; PULSE 107; RESP 18; TEMP 36.4; O2SAT 98
[2018-08-22] MEDS: Furosemide 40 MG Tablet PO (09:52)
[2018-08-22] MEDS: Pantoprazole Sodium 40 MG Tablet PO (09:52)
--- NOTE | 2018-08-22 10:10 | CASEMGMT ---
RN LULU Face to Face with patient for initial transition planning/care coordination assessment. RN LULU introduced self and role at [facility]. Patient lying in bed, alert and oriented. Patient willing to participate in assessment and is able to answer all questions appropriately. Care providers, pharmacy, and demographics verified. Patient states he is not sure what his discharge needs will be till he finds out more information. Patient states he has no further needs or concerns at this time. CM to follow for discharge planning needs that may arise. PCP: Jessica Specialists: [facility] Preferred Pharmacy: [facility] Insurance: MMBRADLEY Zaidi Prescription Benefit: yes Living Will/HPOA: yes, Sherlyn Moreno HPOA LNOK: Living Arrangements: Patient lives with in 1.5 story house with bed and bath on main level. Patient states he is independent at home. Transportation: self/ DME/HHC: Patient states he has cane at home. Disposition Plan: TBD. CM to monitor patient's course of treatment and re-evaluate. Berkley TERRELLN, RN, CM
--- NOTE | 2018-08-22 12:37 | NURSING ---
Patient c/o of shrotness of breath to QA TEST ANALYST. This RN notified and to room to assess. No acute distress noted. RR WNL, O2 sats WNL. Patient in supine position, HOB elevated to 45. MD notified.
[2018-08-22] MEDS: Spironolactone 50 MG Tablet PO ×2 (13:58→21:36)
[2018-08-22 15:50] VITALS: BP 106/56; PULSE 103; RESP 16; TEMP 36.6; O2SAT 96
--- NOTE | 2018-08-22 15:51 | CASEMGMT ---
Social Work Note SW received referral for depression due to cancer diagnosis. SW will follow up with pt tomorrow in regards to MH. Berkley Lakhani CAMP MAINTENANCE SUPERVISOR, TOOL GRINDER OPERATOR EXTERNAL
--- NOTE | 2018-08-22 15:52 | PCM.HP.ID ---
Problem List (1) Severe sepsis Status: Acute Reason for Consult: SBP Consulted by: Dr. Barraza History of Present Illness: The patient is a 62 year old M with h/o mantle cell lymphoma, last chemo around 15 years ago, presented with several days of abd distension, discomfort, not feeling well. No fever, but has had night sweats for several weeks. Had some associated nausea and SOB with abd being so full. Came to ED, tap done, admitted on ceftriaxone, abd starting to fill back up a little. Still moderate discomfort. Full ROS performed and neg except as noted above. 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.9 Non-healing ulcer of upper extremity (Chronic) L98.499 8 cm nonhealing infected radiation ulcer lesion left arm Late effect of radiation (Chronic) T66.xxxS late effect radiation left arm Personal history of lymphoma (Chronic) Z85.72 Personal history of Methicillin resistant Staphylococcus aureus infection (Chronic) Z86.14 Allergies/Adverse Reactions: Allergies adhesive tape Allergy (Verified 08/22/18 13:24) Rash amoxicillin Allergy (Verified 08/22/18 13:24) Rash levofloxacin Allergy (Verified 08/22/18 13:24) Rash aspirin Adverse Reaction (Verified 08/22/18 13:24) Upset Stomach Penicillins Adverse Reaction (Verified 08/22/18 13:24) Upset Stomach Home Medications: Ambulatory Orders Medication Instructions Recorded Pantoprazole Sodium [Protonix] 40 mg PO DAILY 02/28/13 Atorvastatin Calcium [Lipitor] 80 mg PO QHS #30 tab 08/13/18 - Social History SMOKING STATUS:: Former smoker Vital Signs Temp Pulse Resp BP Pulse Ox 97.6 F L 107 H 18 111/69 98 08/22/18 09:49 08/22/18 09:49 08/22/18 09:49 08/22/18 09:49 08/22/18 09:49 Oxygen Delivery Method Room Air Weight: 122.062 kg Body Mass Index (BMI) 34.7 Finger Stick Blood Glucose 107 Microbiology Past 72 Hours 08/20/18 22:00 Urine Culture - Preliminary Urine, Clean Catch Mixed Gram Positive Organisms 08/20/18 16:20 Gram Stain - Final Fluid - Ascites Body Fluid Culture - Preliminary No growth-Final to follow Anaerobic Culture - Preliminary No growth in 48 hours. Laboratory Tests Past 24 Hrs 08/22/18 08/22/18 05:25 05:25 WBC 26.3 H RBC 4.67 Hgb 14.1 Hct 42.4 MCV 90.8 MCH 30.2 MCHC 33.3 RDW 14.3 RDW Differential 46.5 H Plt Count 256 MPV 10.4 Neut % (Auto) Not Reportable Absolute Neuts (auto) 22.4 H Absolute Lymphs (auto) 0.79 L Total Counted 100 Neutrophils % (Manual) 43 L Band Neutrophils % 42 H Lymphocytes % (Manual) 3 L Monocytes % (Manual) 5 Eosinophils % (Manual) 7 H Diff Path Review May foll Platelet Estimate ADEQUATE RBC Morphology NORM C+C Sodium 130 L Potassium 4.2 Chloride 95 L Carbon Dioxide 22.0 Anion Gap 13 BUN 49 H Creatinine 1.79 H Estim Creat Clear Calc 51.02 Est GFR (MDRD) Af Amer 50 L Est GFR (MDRD) Non-Af 41 L BUN/Creatinine Ratio 27.4 H Glucose 76 Calcium 8.2 L Total Bilirubin 1.10 H AST 26 ALT 26 Alkaline Phosphatase 53 Total Protein 4.9 L Albumin 2.2 L Globulin 2.7 Albumin/Globulin Ratio 0.8 L - Other Studies Radiology: [] reviewed Other Studies: [] Route of nutrition/ use of supplements: [] Nutritional Intake: [] IV Site: [] Cronin Catheter: [] - Physical Exam General: Alert, Oriented x3, Cooperative, No apparent distress HEENT: Atraumatic, PERRLA, EOMI Neck: Supple, No Nodes Lungs: Clear to auscultation, Normal air movement Cardiovascular: Regular rate, Regular Rhythm Abdomen: Non Tender, Distended - firm Extremities: No edema Skin: No rashes IV Site: Peripheral, without redness Musculoskeletal: No Tenderness to Palpation of Joints or Extremities Neurological: Cranial nerves II-XII grossly intact - Assessment/Plan Antibiotics: [] Assessment/Plan: [] Active and Suspected Problems Ascites (Acute) SBP (spontaneous bacterial peritonitis) (Acute) Severe sepsis (Acute) ARLIN (acute kidney injury) (Acute) severe sepsis with ARLIN, lactic acidosis, and suspected SBP - cont cefepime. Fluid cx neg so far. Diff dx also includes malignancy, particularly given omental caking seen on CT. Had neg Hep C in 2016. Recommend sending fluid for cytology or doing biopsy. Will follow, thank you, d/w Dr. Barraza
--- NOTE | 2018-08-22 16:52 | FLU_PTH ---
PATIENT: ALFREDO ROMO LOC: MS3 U#:[id number] AGE/SX: 62/M ROOM: TX310 RE08/20/[address]: Dr. Veto Barraza DO : 1955 BED: 1 DIS: 08/25/2018 SPEC #: [id number] RECD: 08/23/18 13:49 STATUS: GOPI REQ #: [id number] [place]: 08/22/18 16:[address]: Veto Barraza DEPT: CYTOLOGY RECD BY: Samuel Johnson ENTERED: 08/23/18 13:50 SP TYPE: Fluid OTHR DR: MD Dr. Veto Mejias DO Dr. Robert Leininger, MD Tissues: PARACENTESIS FLUID Procedures: Special Stain Group II Surgery Specimen Level IV Cytospin Fluid HEADER OPERATION: Ultrasound-guided paracentesis PRE-OP DIAGNOSIS: Ascites TISSUE SUBMITTED: Paracentesis fluid for cytology DIAGNOSIS CYTOLOGY Paracentesis fluid for cytology (cytospin and cell block): Atypical lymphocytes noted suspicious for involvement by lymphoma. See comment. SJ:rg 08/24/18 COMMENT Please make reference to additional cytology specimen ([id number]) paracentesis fluid for cytology with diagnosis of non-Hodgkin B-cell lymphoma, favor follicular center cell origin. The specimen shows markedly degenerated cells. Clinical correlation and appropriate follow up are necessary. Case has been reviewed in consultation with Dr. Gamez who concurs with the above diagnosis. IDC:AM CYTOLOGY STUDY Slides are reviewed. CYTOLOGY GROSS Received is 21 ml of clear yellow fluid labeled with the patient's name and and designated per the requisition as paracentesis. Submitted for cytology preparation including cell block. / 08/23/18 TC:0 CPT: 29917, 59657
--- NOTE | 2018-08-22 18:36 | PCM.PROGNOTE ---
Patient Problems: Active and Suspected Problems Ascites (Acute) SBP (spontaneous bacterial peritonitis) (Acute) Severe sepsis (Acute) ARLIN (acute kidney injury) (Acute) Subjective: Patient was seen and examined today, had an extensive conversation with him and his today about his medical care, fluid was not sent down for cytology, I have ordered another paracentesis for tomorrow to be done by radiology and will send fluid down for cytology. I contacted oncology-Dr. Moreno and he states that he will see the patient in consultation after cytology is back from the peritoneal fluid. I explained this to the patient and I explained to the patient that he would not be treated for any presumed cancer unless we had a cell type. Patient complains of continued abdominal distention and periods of diaphoresis at night. He states that the diaphoresis also happened when he was being treated for his lymphoma. - Physical Exam General: Alert, Oriented x3, Cooperative, No apparent distress, Well developed HEENT: Atraumatic, PERRLA, EOMI, Normocephalic Oral: Moist Mucosa Neck: Supple, No JVD, Negative Carotid Bruits, No Nuchal Rigidity, Trachea Midline, Thyroid Normal Size and Texture Lungs: Clear to auscultation, Normal air movement, No rhonchi, No wheeze, No rales Cardiovascular: Regular rate, Regular Rhythm, Normal S1, Normal S2, No murmurs, No Ectopic Activity Abdomen: Bowel Sounds Present, Soft, Non Tender, Distended Extremities: No clubbing, No cyanosis, Capillary Refill Less than 3 Seconds Skin: No rashes, No breakdown Musculoskeletal: No Tenderness to Palpation of Joints or Extremities Neurological: Cranial nerves II-XII grossly intact, Neuro grossly intact, Sensory exam intact to light touch and pain, Coordination normal Psych/Mental Status: Normal Affect, Appropriate, Alert and oriented to time, place, person, mood and affect Vital Signs Temp Pulse Resp BP Pulse Ox 97.9 F 103 H 16 106/56 L 96 08/22/18 15:50 08/22/18 15:50 08/22/18 15:50 08/22/18 15:50 08/22/18 15:50 Oxygen Delivery Method Room Air Weight: 122.062 kg Body Mass Index (BMI) 34.7 Finger Stick Blood Glucose 107 Intake and Output for Last 24 Hours 08/20/18 08/21/18 08/22/18 23:59 23:59 23:59 Intake Total 1148 / 1148 3486 / 4136 2585 / 2585 Output Total 225 / 225 900 / 1100 1560 / 1560 Balance 923 / 923 2586 / 3036 1025 / 1025 Microbiology Past 72 Hours 08/20/18 22:00 Urine Culture - Preliminary Urine, Clean Catch Mixed Gram Positive Organisms 08/20/18 16:20 Gram Stain - Final Fluid - Ascites Body Fluid Culture - Preliminary No growth-Final to follow Anaerobic Culture - Preliminary No growth in 48 hours. Laboratory Tests Past 24 Hrs 08/22/18 08/22/18 05:25 05:25 WBC 26.3 H RBC 4.67 Hgb 14.1 Hct 42.4 MCV 90.8 MCH 30.2 MCHC 33.3 RDW 14.3 RDW Differential 46.5 H Plt Count 256 MPV 10.4 Neut % (Auto) Not Reportable Absolute Neuts (auto) 22.4 H Absolute Lymphs (auto) 0.79 L Total Counted 100 Neutrophils % (Manual) 43 L Band Neutrophils % 42 H Lymphocytes % (Manual) 3 L Monocytes % (Manual) 5 Eosinophils % (Manual) 7 H Diff Path Review May foll Platelet Estimate ADEQUATE RBC Morphology NORM C+C Sodium 130 L Potassium 4.2 Chloride 95 L Carbon Dioxide 22.0 Anion Gap 13 BUN 49 H Creatinine 1.79 H Estim Creat Clear Calc 51.02 Est GFR (MDRD) Af Amer 50 L Est GFR (MDRD) Non-Af 41 L BUN/Creatinine Ratio 27.4 H Glucose 76 Calcium 8.2 L Total Bilirubin 1.10 H AST 26 ALT 26 Alkaline Phosphatase 53 Total Protein 4.9 L Albumin 2.2 L Globulin 2.7 Albumin/Globulin Ratio 0.8 L Medical Necessity - Tobacco Use Smoking Status: Former smoker Assessment/Plan All Active Problems Speech disturbance (Resolved) TIA (transient ischemic attack) (Resolved) Ascites (Acute) SBP (spontaneous bacterial peritonitis) (Acute) Severe sepsis (Acute) ARLIN (acute kidney injury) (Acute) #1 probable intraperitoneal neoplasm-etiology unclear, favor recurrent mantle cell lymphoma-patient will undergo paracentesis tomorrow and will obtain fluid for cell cytology. #2 massive ascites-probably secondary to #1 #3 possible spontaneous bacterial peritonitis with severe sepsis-patient was seen by infectious disease today, peritoneal fluid culture was negative so far for growth, ID recommends keeping the patient on IV antibiotics for now #4 possible cirrhosis of the liver-continue supportive care #5 hyponatremia-monitor sodium, his may be secondary to undiagnosed cirrhotic liver disease #6 acute kidney injury-BMP will be monitored, patient's creatinine is trending downward at this time Code Visit Inpatient E&M: 91116 Subs Hosp L2
[2018-08-22 21:31] VITALS: BP 107/65; PULSE 100; RESP 18; TEMP 36.8; O2SAT 95
[2018-08-22] MEDS: Morphine 4 MG/ML Syringe IV (21:36)
[2018-08-22] MEDS: MELATONIN 3 MG TABLET PO (21:36)
[2018-08-22] MEDS: Atorvastatin Calcium 80 MG Tablet PO (21:36)
[2018-08-23] VITALS (7 sets, daily range): BP systolic 97–127; BP diastolic 57–72; PULSE 89–97; RESP 16–18; TEMP 36.4–37.1; O2SAT 92–97
[2018-08-23] MEDS: 0.9% NaCl Peripheral Flush Adult/Peds IV (05:24)
[2018-08-23 06:18] LABS: International Normalized Ratio 1.3; Prothrombin Time (Protime)PT. 16.4 SECONDS (11.7-14.9)
[2018-08-23 06:19] LABS: Partial Thromboplast Time 28.4 Seconds (24.1-36.2)
[2018-08-23] MEDS: Pantoprazole Sodium 40 MG Tablet PO (09:59)
[2018-08-23] MEDS: Furosemide 40 MG Tablet PO (09:59)
[2018-08-23] MEDS: Spironolactone 50 MG Tablet PO ×2 (09:59→21:38)
[2018-08-23 10:04] LABS: Pathologist Review Reviewed
--- NOTE | 2018-08-23 10:12 | PCM.PN.ID ---
Patient Problems: Active and Suspected Problems Ascites (Acute) SBP (spontaneous bacterial peritonitis) (Acute) Severe sepsis (Acute) ARLIN (acute kidney injury) (Acute) Subjective: Abd feels worse, more distended. Sweats last night. No fever. - Physical Exam General: Alert, Cooperative, No apparent distress Lungs: Clear to auscultation, Normal air movement Cardiovascular: Regular rate, Regular Rhythm Abdomen: Distended - firm Skin: No rashes Vital Signs Temp Pulse Resp BP Pulse Ox 98.7 F 96 18 108/70 97 08/23/18 09:53 08/23/18 09:53 08/23/18 09:53 08/23/18 09:53 08/23/18 09:53 Oxygen Delivery Method Room Air Weight: 122.8 kg Body Mass Index (BMI) 34.7 Finger Stick Blood Glucose 107 Intake and Output for Last 24 Hours 08/21/18 08/22/18 08/23/18 23:59 23:59 23:59 Intake Total 3486 / 4136 2585 / 3048 933 / 933 Output Total 900 / 1100 1560 / 1910 575 / 575 Balance 2586 / 3036 1025 / 1138 358 / 358 Microbiology Past 72 Hours 08/20/18 22:00 Urine Culture - Final Urine, Clean Catch Mixed Gram Positive Organisms 08/20/18 20:05 Blood Culture - Preliminary Blood Culture (Wb) - Pic No growth in 48 hours. 08/20/18 16:40 Blood Culture - Preliminary Blood Culture (Wb) - Left Hand No growth in 48 hours. 08/20/18 16:20 Gram Stain - Final Fluid - Ascites Body Fluid Culture - Preliminary No growth-Final to follow Anaerobic Culture - Preliminary No growth in 48 hours. Laboratory Tests Past 24 Hrs 08/20/18 08/23/18 13:15 05:50 Diff Path Review Reviewed PT 16.4 H INR 1.3 APTT 28.4 Medical Necessity - Tobacco Use Smoking Status: Former smoker Route of nutrition/ use of supplements: [] Nutritional Intake: [] IV Site: [] Cronin Catheter: [] - Assessment/Plan Antibiotics: [] Assessment/Plan: [] Active and Suspected Problems Ascites (Acute) SBP (spontaneous bacterial peritonitis) (Acute) Severe sepsis (Acute) ARLIN (acute kidney injury) (Acute) severe sepsis with ARLIN, lactic acidosis, and suspected SBP - cont cefepime. Fluid cx neg so far. Diff dx also includes malignancy, particularly given omental caking seen on CT. Had neg Hep C in 2016. Recommend sending fluid for cytology today. Abx stop date for 5 day course planned for 08/25/18. Will follow, d/w Dr. Barraza
[2018-08-23 10:16] LABS: Pathologist Comment/Body Fluid Reviewed
[2018-08-23 10:17] LABS: Pathologist Review Reviewed
[2018-08-23] MEDS: 0.9% NaCl Midline IV Flush IV ×3 (10:19→13:43)
[2018-08-23 10:21] LABS: Pathologist Review Reviewed
--- NOTE | 2018-08-23 10:24 | NURSING ---
went to draw labs - Dual PICC: red tipped end bjorn and flushed well; purple tipped cath would not draw/flush - end capped replaced with no success. Sonia HERNANDEZ informed of this.
[2018-08-23 10:29] LABS: Hematocrit 41.4 % (40-54); Hemoglobin 13.8 g/dl (13.0-16.5); Mean Corp Hgb Conc 33.3 g/gl (32-36); Mean Corpuscular Hgb 30.8 pg (27.0-32.0); Mean Corpuscular Volume 92.4 fL (80-94); Platelet Count 226 K/mm3 (150-450); RBC Distribution Width CV 14.3 % (11.6-14.6); RBC Distribution Width SD 48.1 fl (35.1-43.9); Red Blood Count 4.48 M/mm3 (4.6-6.2); White Blood Count 29.7 K/mm3 (4.4-11.0)
[2018-08-23 10:30] LABS: Differential Indicated MANUAL DIFF; POSITIVE COUNT NO; POSITIVE DIFFERENTIAL YES; POSITIVE MORPHOLOGY YES
[2018-08-23 10:50] LABS: Anion Gap 11 (5-15); BUN 59 mg/dL (7-18); BUN/Creat Ratio 28.6 RATIO (10-20); Calcium,Total 8.6 mg/dL (8.5-10.1); Chloride 94 mmol/L (98-107); Creatinine, Serum 2.06 mg/dL (0.70-1.30); EST Glomerular Filtration Rate 35 mL/min (>60); Est Glom Filt Rate - Afr Amer 42 mL/min (>60); Estimated Creatinine Clearance 44.34 ml/min; Glucose 107 mg/dL (74-106); Sodium Level 127 mmol/L (136-145)
[2018-08-23 11:03] LABS: Eosinophil 18 % (0-5); Lymphocyte 2 % (19-41); Metamyelocyte 1 % (0-1); Monocyte 4 % (0-10); Neutrophil-Band 16 % (0-5); Neutrophil-Segmented 59 % (47-70); Total Cells Counted 100 (MANUAL DIFF)
[2018-08-23 11:04] LABS: Platelet Estimate ADEQUATE (ADEQ); Red Cell Morphology NORM C+C NORMAL (NORM C&C); Vacuolated Cells 1+
[2018-08-23 13:18] LABS: Cytology, Body Fluid / CSF SEE PATHOLOGY REPORT
[2018-08-23] MEDS: oxyCODONE 5 MG Tablet PO ×2 (13:42→20:27)
[2018-08-23 14:50] LABS: Absolute Lymphocyte Count 0.59 X10^3/ul (0.83-4.51); Absolute Neutrophil Count 22.3 X10^3/uL (2.0-7.7)
--- NOTE | 2018-08-23 16:35 | NURSING ---
C/o of discomfort of Left ear, only earwax observed, patient with finger in ear, asked patient not to put finger in ear. MD notified.
--- NOTE | 2018-08-23 16:51 | US_ITS ---
PROCEDURE: Ultrasound guided paracentesis. DATE OF EXAMINATION: August 23, 2018. INDICATION: Male, 62 years old. Ascites. PHYSICIAN: Emmanuel Vazquez M.D. TECHNIQUE: The risks, benefits, and alternatives to the procedure were explained to the patient. The specific risks of bleeding, infection, and damage to bowel were detailed and accepted. Witnessed informed consent was obtained. The abdomen was ultrasonographically surveyed. An appropriate pocket of fluid was identified at the right lower quadrant. The skin were cleaned and prepped in the usual sterile fashion. Using ultrasound guidance, the peritoneal cavity was accessed with a 5-Welsh paracentesis needle/catheter system. The trocar was removed. A total of 4020 ml of sara-colored fluid were removed from the peritoneal cavity. A sample was sent to the laboratory for analysis. The catheter was removed and a sterile dressing was applied. The procedure was well tolerated. US/Paracentesis with US IMPRESSION: Ultrasound guided paracentesis. Electronically Signed: Emmanuel Vazquez, at 13:32 EDT , Service support ,
--- NOTE | 2018-08-23 19:40 | CASEMGMT ---
Social Work Consult: New diagnosis of Cancer Informant: Chart, nursing staff Met with patient and patient spouse, Sherlyn in room. Patient laying on bed with minimal animation during conversation. Patient did maintain eye contact and engaged in conversation with this medical social consultant. This medical social consultant broached topic of new diagnosis of cancer. Patient reporting that the cancer is back again. Patient stating to have been diagnosed with cancer in 2007 as well and to have gone into remission. Patient stating to have gotten cancer treatment in [place] in 2007 and to not be established with an oncologist in [place]. Patient reporting to have always lives in [place] but to have gone to [place] for treatment of cancer in 2007. Patient stating to wish that patient could go back to [place] for treatment again but is aware that this is not an option. This medical social consultant inquiring as to why this is not an option for patient this time. Patient stating to be weaker and to sometimes not be able to walk, even with a walker. Patient reporting to have been independent in the community prior to the past week when patient noted to begin getting weaker and having less interest in doing things. Patient stating [place]. Patient stating to have to sometimes take a walking stick with patient when going on walks but to find peace when walking. Patient voicing main concern at this time is how patient is going to be able to get around. This medical social consultant educating patient that sometimes patients will discharge to another facility for continued therapy services to regain strength prior to returning to home. Patient reporting that other medical staff have already spoken to patient in regards to possible transition to TCU. Patient is unsure of decision to go to TCU but is reporting to not be sure how patient would function at home as patient lives in an old farm house that has steps to enter and even a half step to get into the bathroom on the first floor. Patient states to have two adult children that live in [place] and help as possible but both have to work. Patient currently on disability due to pervious cancer diagnosis and Lung issues. Patient stating to find support from spouse and other family members. Patient identifying to be discouraged. Patient denies any pervious counseling services and is not interested in any at this time. Active listening and emotional support provided for patient/patient spouse. PHQ-9 completed. Patient with a score of 16: Moderately Severe Depression. Note: Patient denies any suicidal thoughts. Social work to continue to follow as needed. T. Shirley MAGAZINE FEEDER, DANA
--- NOTE | 2018-08-23 20:01 | PCM.PROGNOTE ---
Patient Problems: Active and Suspected Problems Ascites (Acute) SBP (spontaneous bacterial peritonitis) (Acute) Severe sepsis (Acute) ARLIN (acute kidney injury) (Acute) Subjective: Patient seen and examined today, I talked at length with his who is in the room late this afternoon. Patient was seen by PT and OT, he is too weak to go home at this point and he is consented to go to a residential for short-term rehab. Patient underwent a paracentesis today and they drained off approximately 4 L of fluid which was sent to cytology. I talked by phone with Dr. Moreno (oncology) today he stated that it would be approximately a week to 10 days before he could get results of the cytology and flow cytometry. This will mean patient will have to go to a [facility] facility for short-term rehab. Patient complained of left ear pain today, he had some wax in his left ear canal but his left eardrum showed evidence of previous rupture and scarring. Patient did confirm that he had a ruptured eardrum on the left in the past. - Physical Exam General: Alert, Oriented x3, Cooperative, No apparent distress, Well developed HEENT: Atraumatic, PERRLA, EOMI, Normocephalic Oral: Moist Mucosa Neck: Supple, Trachea Midline, Thyroid Normal Size and Texture Lungs: Clear to auscultation, Normal air movement, No rhonchi, No wheeze Cardiovascular: Regular rate, Regular Rhythm, Normal S1, Normal S2, No murmurs Abdomen: Bowel Sounds Present, Soft, Non Tender, Distended Extremities: No clubbing, No cyanosis, No edema, Capillary Refill Less than 3 Seconds Skin: No rashes, No breakdown Musculoskeletal: No Tenderness to Palpation of Joints or Extremities Neurological: Cranial nerves II-XII grossly intact, Neuro grossly intact, Sensory exam intact to light touch and pain, Coordination normal Psych/Mental Status: Normal Affect, Appropriate, Alert and oriented to time, place, person, mood and affect Vital Signs Temp Pulse Resp BP Pulse Ox 97.8 F 90 18 97/60 97 08/23/18 16:44 08/23/18 16:44 08/23/18 16:44 08/23/18 16:44 08/23/18 16:44 Oxygen Delivery Method [2] Room Air Oxygen Delivery Method [1 ( Room Air Initial Baseline)] Oxygen Delivery Method Room Air Weight: 122.8 kg Body Mass Index (BMI) 34.7 Finger Stick Blood Glucose 107 Intake and Output for Last 24 Hours 08/21/18 08/22/18 08/23/18 23:59 23:59 23:59 Intake Total 3486 / 4136 2585 / 3048 1377 / 1377 Output Total 900 / 1100 1560 / 1910 1025 / 1025 Balance 2586 / 3036 1025 / 1138 352 / 352 Microbiology Past 72 Hours 08/20/18 22:00 Urine Culture - Final Urine, Clean Catch Mixed Gram Positive Organisms 08/20/18 20:05 Blood Culture - Preliminary Blood Culture (Wb) - Pic No growth in 48 hours. 08/20/18 16:40 Blood Culture - Preliminary Blood Culture (Wb) - Left Hand No growth in 48 hours. 08/20/18 16:20 Gram Stain - Final Fluid - Ascites Body Fluid Culture - Preliminary No growth-Final to follow Anaerobic Culture - Preliminary No growth in 48 hours. Laboratory Tests Past 24 Hrs 08/20/18 08/20/18 08/21/18 13:15 16:20 04:45 WBC RBC Hgb Hct MCV MCH MCHC RDW RDW Differential Plt Count MPV Neut % (Auto) Absolute Neuts (auto) Absolute Lymphs (auto) Total Counted Neutrophils % (Manual) Band Neutrophils % Lymphocytes % (Manual) Monocytes % (Manual) Eosinophils % (Manual) Metamyelocytes % Diff Path Review Reviewed Reviewed Toxic Vacuolation Platelet Estimate RBC Morphology PT INR APTT Sodium Potassium Chloride Carbon Dioxide Anion Gap BUN Creatinine Estim Creat Clear Calc Est GFR (MDRD) Af Amer Est GFR (MDRD) Non-Af BUN/Creatinine Ratio Glucose Calcium Fl Pathologist Comment Reviewed Miscellaneous Cytology Miscellaneous Test 08/22/18 08/22/18 08/22/18 05:25 13:00 14:18 WBC RBC Hgb Hct MCV MCH MCHC RDW RDW Differential Plt Count MPV Neut % (Auto) Absolute Neuts (auto) Absolute Lymphs (auto) Total Counted Neutrophils % (Manual) Band Neutrophils % Lymphocytes % (Manual) Monocytes % (Manual) Eosinophils % (Manual) Metamyelocytes % Diff Path Review Reviewed Toxic Vacuolation Platelet Estimate RBC Morphology PT INR APTT Sodium Potassium Chloride Carbon Dioxide Anion Gap BUN Creatinine Estim Creat Clear Calc Est GFR (MDRD) Af Amer Est GFR (MDRD) Non-Af BUN/Creatinine Ratio Glucose Calcium Fl Pathologist Comment Miscellaneous Cytology Pending Miscellaneous Test Pending 08/23/18 08/23/18 08/23/18 05:50 10:05 10:05 WBC 29.7 H RBC 4.48 L Hgb 13.8 Hct 41.4 MCV 92.4 MCH 30.8 MCHC 33.3 RDW 14.3 RDW Differential 48.1 H Plt Count 226 MPV 10.0 Neut % (Auto) Not Reportable Absolute Neuts (auto) 22.3 H Absolute Lymphs (auto) 0.59 L Total Counted 100 Neutrophils % (Manual) 59 Band Neutrophils % 16 H Lymphocytes % (Manual) 2 L Monocytes % (Manual) 4 Eosinophils % (Manual) 18 H Metamyelocytes % 1 Diff Path Review Toxic Vacuolation 1+ Platelet Estimate ADEQUATE RBC Morphology NORM C+C PT 16.4 H INR 1.3 APTT 28.4 Sodium 127 L Potassium 4.0 Chloride 94 L Carbon Dioxide 22.0 Anion Gap 11 BUN 59 H Creatinine 2.06 H Estim Creat Clear Calc 44.34 Est GFR (MDRD) Af Amer 42 L Est GFR (MDRD) Non-Af 35 L BUN/Creatinine Ratio 28.6 H Glucose 107 H Calcium 8.6 Fl Pathologist Comment Miscellaneous Cytology Miscellaneous Test 08/23/18 13:00 WBC RBC Hgb Hct MCV MCH MCHC RDW RDW Differential Plt Count MPV Neut % (Auto) Absolute Neuts (auto) Absolute Lymphs (auto) Total Counted Neutrophils % (Manual) Band Neutrophils % Lymphocytes % (Manual) Monocytes % (Manual) Eosinophils % (Manual) Metamyelocytes % Diff Path Review Toxic Vacuolation Platelet Estimate RBC Morphology PT INR APTT Sodium Potassium Chloride Carbon Dioxide Anion Gap BUN Creatinine Estim Creat Clear Calc Est GFR (MDRD) Af Amer Est GFR (MDRD) Non-Af BUN/Creatinine Ratio Glucose Calcium Fl Pathologist Comment Miscellaneous Cytology Miscellaneous Test Pending Medical Necessity - Tobacco Use Smoking Status: Former smoker Assessment/Plan All Active Problems Speech disturbance (Resolved) TIA (transient ischemic attack) (Resolved) Ascites (Acute) SBP (spontaneous bacterial peritonitis) (Acute) Severe sepsis (Acute) ARLIN (acute kidney injury) (Acute) #1 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 #2 massive ascites-probably secondary to #1-4 L of fluid was removed today during his paracentesis, radiology feels that most of the patient's abdominal distention could be coming from tumor burden in the omentum #3 possible spontaneous bacterial peritonitis with severe sepsis-patient was seen by infectious disease today, peritoneal fluid culture was negative so far for growth, ID recommends keeping the patient on IV antibiotics for now #4 possible cirrhosis of the liver-continue supportive care #5 hyponatremia-monitor sodium, his may be secondary to undiagnosed cirrhotic liver disease #6 acute kidney injury-BMP will be monitored #7 generalized debility-patient will need temporary placement in a [facility] facility for rehab services #8 left ear pain-probably secondary to chronic left ear problems, he has evidence of an old perforation on his left TM during my exam today Code Visit Inpatient E&M: 07204 Subs Hosp L2
[2018-08-23] MEDS: Heparin Injection (Vial) 5,000 UNIT/ML VIAL 5000 UNIT SC (21:37)
[2018-08-23] MEDS: 0.9% NaCl PICC Flush IV (21:38)
[2018-08-23] MEDS: Atorvastatin Calcium 80 MG Tablet PO (21:38)
[2018-08-23] MEDS: Mag Hydrox/Al Hydrox/Simeth 30 ML UDC PO (22:46)
[2018-08-23] MEDS: MELATONIN 3 MG TABLET PO (22:46)
[2018-08-24 02:30] VITALS: BP 108/61; PULSE 93; RESP 17; TEMP 35.6; O2SAT 96
[2018-08-24] MEDS: Ondansetron 4 MG/2 ML Vial IV ×3 (04:47→18:12)
[2018-08-24] MEDS: 0.9% NaCl PICC Flush IV ×3 (04:48→07:01)
[2018-08-24] MEDS: Heparin Injection (Vial) 5,000 UNIT/ML VIAL 5000 UNIT SC ×3 (05:15→22:51)
--- NOTE | 2018-08-24 06:45 | EKG12_ITS ---
Test Reason : Blood Pressure : / mmHG Vent. Rate : 096 BPM Atrial Rate : 096 BPM P-R Int : 174 ms QRS Dur : 082 ms QT Int : 348 ms P-R-T Axes : 033 073 042 degrees QTc Int : 439 ms Normal sinus rhythm Nonspecific ST abnormality Abnormal ECG Confirmed by CAROLINE HER, ALEXIS ([id number]), society editor TRIXIE RAMON ([id number]) on 09/01/2018 10:40:15 AM Referred By: MELLISSA Confirmed By:ALEXIS VELAZQUEZ MD
[2018-08-24] MEDS: proCHLORPERazine 10 MG/2 ML Vial 5 MG IV (07:00)
[2018-08-24 08:09] VITALS: BP 114/65; PULSE 91; RESP 18; TEMP 36.3; O2SAT 97
[2018-08-24] MEDS: 0.9% NaCl Peripheral Flush Adult/Peds IV ×3 (10:46→18:14)
[2018-08-24] MEDS: Furosemide 40 MG Tablet PO (10:46)
[2018-08-24] MEDS: Spironolactone 50 MG Tablet PO ×2 (10:46→22:50)
[2018-08-24] MEDS: Pantoprazole Sodium 40 MG Tablet PO (10:46)
--- NOTE | 2018-08-24 10:58 | CASEMGMT ---
Addendum entered by Berkley Lakhani 08/24/18 15:44: SW in to update pt on acceptance to TCU pending pre- cert. Pt's daughter present in room, pt gave this worker to speak to him in front of his guest. SW updated pt and pt's daughter on acceptance to TCU pending pre-cert. Pt states understanding. Plan: TCU pending pre-cert Addendum entered by Berkley Lakhani 08/24/18 15:27: SW received call from Parul in TCU stating she is able to accept pt and will submit for pre-cert. Plan:TCU pending pre-cert. Addendum entered by Berkley Lakhani 08/24/18 14:30: SW placed a call to Parul in TCU and left message again regarding referral. SW waiting for call back. Original Note: Social Work Note Per physician, pt is agreeable to TCU at discharge. SW placed a call to Parul in TCU, left message and provided referral. SW waiting for call back. Plan: TCU pending acceptance and pre-cert Berkley Lakhani DATA MODELER, HEART NURSE
[2018-08-24 11:13] VITALS: BP 105/59; PULSE 93; RESP 16; TEMP 36.3; O2SAT 95
--- NOTE | 2018-08-24 13:54 | PCM.PN.ID ---
Patient Problems: Active and Suspected Problems Ascites (Acute) SBP (spontaneous bacterial peritonitis) (Acute) Severe sepsis (Acute) ARLIN (acute kidney injury) (Acute) Subjective: Abd still sore s/p tap. Sweats overnight. - Physical Exam General: Alert, Cooperative, No apparent distress Lungs: Clear to auscultation, Normal air movement Cardiovascular: Regular rate Abdomen: Distended Skin: No rashes Vital Signs Temp Pulse Resp BP Pulse Ox 97.4 F L 93 16 105/59 L 95 08/24/18 11:13 08/24/18 11:13 08/24/18 11:13 08/24/18 11:13 08/24/18 11:13 Oxygen Delivery Method [2] Room Air Oxygen Delivery Method [1 ( Room Air Initial Baseline)] Oxygen Delivery Method Room Air Weight: 118 kg Body Mass Index (BMI) 34.7 Finger Stick Blood Glucose 107 Intake and Output for Last 24 Hours 08/22/18 08/23/18 08/24/18 23:59 23:59 23:59 Intake Total 2585 / 3048 1655 / 1655 555 / 555 Output Total 1560 / 1910 1175 / 1175 1300 / 1300 Balance 1025 / 1138 480 / 480 -745 / -745 Microbiology Past 72 Hours 08/20/18 22:00 Urine Culture - Final Urine, Clean Catch Mixed Gram Positive Organisms 08/20/18 20:05 Blood Culture - Preliminary Blood Culture (Wb) - Pic No growth in 48 hours. 08/20/18 16:40 Blood Culture - Preliminary Blood Culture (Wb) - Left Hand No growth in 48 hours. 08/20/18 16:20 Gram Stain - Final Fluid - Ascites Body Fluid Culture - Preliminary No growth-Final to follow Anaerobic Culture - Preliminary No growth in 48 hours. Laboratory Tests Past 24 Hrs 08/22/18 08/23/18 14:18 10:05 Absolute Neuts (auto) 22.3 H Absolute Lymphs (auto) 0.59 L Diff Path Review Reviewed Miscellaneous Test Pending Medical Necessity - Tobacco Use Smoking Status: Former smoker Route of nutrition/ use of supplements: [] Nutritional Intake: [] IV Site: [] Cronin Catheter: [] - Assessment/Plan Antibiotics: [] Assessment/Plan: [] Active and Suspected Problems Ascites (Acute) SBP (spontaneous bacterial peritonitis) (Acute) Severe sepsis (Acute) ARLIN (acute kidney injury) (Acute) severe sepsis with ARLIN, lactic acidosis, and suspected SBP - cont cefepime. Fluid cx neg so far. Diff dx also includes malignancy, particularly given omental caking seen on CT. Had neg Hep C in 2016. Repeat tap done. Abx stop date for 5 day course planned for 08/25/18. Will follow
[2018-08-24 14:12] VITALS: BP 112/71; PULSE 95; RESP 16; TEMP 36.3; O2SAT 97
--- NOTE | 2018-08-24 16:09 | PN_ITS ---
Patient Problems: Active and Suspected Problems Ascites (Acute) SBP (spontaneous bacterial peritonitis) (Acute) Severe sepsis (Acute) ARLIN (acute kidney injury) (Acute) Subjective: Patient was seen and examined today, we are currently awaiting approval for temporary placement in a senior care facility for inpatient rehab services, patient has no complaints of any shortness of breath chest pain or fever. I talked with his daughter who was also in the room today as well as another male family member. Patient questioned whether he could be placed on TPN due to his appetite being poor and an episode of vomiting he had last night. I told him I thought it would be hazardous to use TPN in his case and it could cause more pr oblems than it would solve. I encouraged the patient to order off a regular menu and order anything he wanted to eat. - Physical Exam General: Alert, Oriented x3, Cooperative, No apparent distress, Well developed HEENT: Atraumatic, PERRLA, EOMI, Normocephalic Oral: Moist Mucosa Neck: Supple, No JVD, Negative Carotid Bruits Lungs: Clear to auscultation, Normal air movement, No rhonchi, No wheeze, No rales Cardiovascular: Regular rate, Regular Rhythm, Normal S1, Normal S2, No murmurs, No Ectopic Activity Abdomen: Bowel Sounds Present, Soft, Non Tender Extremities: No clubbing, No cyanosis, No edema, Capillary Refill Less than 3 Seconds Skin: No rashes, No breakdown Musculoskeletal: No Tenderness to Palpation of Joints or Extremities Neurological: Cranial nerves II-XII grossly intact, Neuro grossly intact, Sensory exam intact to light touch and pain, Coordination normal Psych/Mental Status: Normal Affect, Appropriate, Alert and oriented to time, place, person, mood and affect Vital Signs Temp Pulse Resp BP Pulse Ox 97.3 F L 95 16 112/71 97 08/24/18 14:12 08/24/18 14:12 08/24/18 14:12 08/24/18 14:12 08/24/18 14:12 Oxygen Delivery Method [2] Room Air Oxygen Delivery Method [1 ( Room Air Initial Baseline)] Oxygen Delivery Method Room Air Weight: 118 kg Body Mass Index (BMI) 34.7 Finger Stick Blood Glucose 107 Intake and Output for Last 24 Hours 08/22/18 08/23/18 08/24/18 23:59 23:59 23:59 Intake Total 2585 / 3048 1655 / 1655 555 / 555 Output Total 1560 / 1910 1175 / 1175 1300 / 1300 Balance 1025 / 1138 480 / 480 -745 / -745 Microbiology Past 72 Hours 08/20/18 22:00 Urine Culture - Final Urine, Clean Catch Mixed Gram Positive Organisms 08/20/18 20:05 Blood Culture - Preliminary Blood Culture (Wb) - Pic No growth in 48 hours. 08/20/18 16:40 Blood Culture - Preliminary Blood Culture (Wb) - Left Hand No growth in 48 hours. 08/20/18 16:20 Gram Stain - Final Fluid - Ascites Body Fluid Culture - Preliminary No growth-Final to follow Anaerobic Culture - Preliminary No growth in 48 hours. 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 I did explain this to him and his . #2 Abdominal bloating with ascites-probably secondary to #1- most of the patient's abdominal distention could be coming from tumor burden in the omentum as only 4 L of fluid was removed during yesterday's paracentesis #3 possible spontaneous bacterial peritonitis with severe sepsis-patient was seen by infectious disease, patient will remain on antibiotics until tomorrow #4 possible cirrhosis of the liver-continue supportive care #5 hyponatremia-monitor sodium, his may be secondary to undiagnosed cirrhotic liver disease #6 acute kidney injury-CMP will be monitored-it will be repeated tomorrow mo rning #7 generalized debility-patient will need temporary placement in a senior care facility for rehab services #8 left ear pain-probably secondary to chronic left ear problems #9 leukocytosis-probably secondary to lymphoma, CBC will be repeated tomorrow Code Visit Inpatient E&M: 96468 Subs Hosp L2
[2018-08-24] MEDS: proMETHazine 25 MG Tablet PO (16:32)
[2018-08-24 19:51] VITALS: BP 113/65; PULSE 99; RESP 20; TEMP 36.6; O2SAT 95
[2018-08-24] MEDS: Atorvastatin Calcium 80 MG Tablet PO (22:51)
[2018-08-24] MEDS: MELATONIN 3 MG TABLET PO (22:52)
[2018-08-25] MEDS: oxyCODONE 5 MG Tablet PO (01:35)
[2018-08-25] MEDS: Ondansetron 4 MG/2 ML Vial IV (01:42)
[2018-08-25 02:15] VITALS: BP 121/65; PULSE 99; RESP 20; TEMP 36.6; O2SAT 95
[2018-08-25] MEDS: Heparin Injection (Vial) 5,000 UNIT/ML VIAL 5000 UNIT SC (05:51)
[2018-08-25] MEDS: proCHLORPERazine 10 MG/2 ML Vial 5 MG IV (05:55)
[2018-08-25] MEDS: 0.9% NaCl Peripheral Flush Adult/Peds IV ×5 (06:08→11:26)
[2018-08-25 06:12] LABS: Hematocrit 41.7 % (40-54); Hemoglobin 13.9 g/dl (13.0-16.5); Mean Corp Hgb Conc 33.3 g/gl (32-36); Mean Corpuscular Hgb 30.8 pg (27.0-32.0); Mean Corpuscular Volume 92.3 fL (80-94); Mean Platelet Vol. 10.5 fl (6.2-12.0); Platelet Count 239 K/mm3 (150-450); RBC Distribution Width CV 14.6 % (11.6-14.6); RBC Distribution Width SD 48.9 fl (35.1-43.9); Red Blood Count 4.52 M/mm3 (4.6-6.2); White Blood Count 27.2 K/mm3 (4.4-11.0)
[2018-08-25 06:13] LABS: ALB/GLOB Ratio 0.6 RATIO (0.9-2.4); AST(SGOT) 21 U/L (15-37); Alanine Aminotransfer ALT/SGPT 20 U/L (16-61); Alkaline Phosphatase 57 U/L (45-117); Anion Gap 15 (5-15); BUN 88 mg/dL (7-18); BUN/Creat Ratio 30.7 RATIO (10-20); Calcium,Total 8.9 mg/dL (8.5-10.1); Chloride 92 mmol/L (98-107); Creatinine, Serum 2.87 mg/dL (0.70-1.30); EST Glomerular Filtration Rate 24 mL/min (>60); Est Glom Filt Rate - Afr Amer 29 mL/min (>60); Estimated Creatinine Clearance 31.82 ml/min; Globulin 3.3 g/dL (2.2-4.2); Glucose 79 mg/dL (74-106); Potassium 4.4 mmol/L (3.5-5.1); Protein, Total 5.3 g/dL (6.4-8.2); Sodium Level 127 mmol/L (136-145)
[2018-08-25 06:18] LABS: Differential Indicated MANUAL DIFF; POSITIVE COUNT NO; POSITIVE DIFFERENTIAL YES; POSITIVE MORPHOLOGY YES
[2018-08-25 06:34] LABS: Eosinophil 10 % (0-5); Monocyte 6 % (0-10); Neutrophil-Band 20 % (0-5); Neutrophil-Segmented 64 % (47-70); Platelet Estimate ADEQUATE (ADEQ); Total Cells Counted 100 (MANUAL DIFF); Toxic Granulation 2+
[2018-08-25 06:35] LABS: Red Cell Morphology NORM C+C NORMAL (NORM C&C); Vacuolated Cells 2+
[2018-08-25 06:36] LABS: Absolute Neutrophil Count 22.9 X10^3/uL (2.0-7.7); Neutrophil # 22.86 X10^3/uL (2.7-7.7)
[2018-08-25 08:15] VITALS: BP 103/69; PULSE 101; RESP 18; TEMP 36.1; O2SAT 97
--- NOTE | 2018-08-25 09:03 | CASEMGMT ---
SW left message for Parul in TCU letting her know to call this SW today should precert be attained for pt. ANDREW Bonds
--- NOTE | 2018-08-25 10:24 | PCM.PN.ID ---
Patient Problems: Active and Suspected Problems Ascites (Acute) SBP (spontaneous bacterial peritonitis) (Acute) Severe sepsis (Acute) ARLIN (acute kidney injury) (Acute) Subjective: Feeling about the same, abd still sore and distended. - Physical Exam General: Alert, Cooperative, No apparent distress Lungs: Clear to auscultation, Normal air movement Cardiovascular: Regular rate, Regular Rhythm Abdomen: Distended Skin: No rashes Vital Signs Temp Pulse Resp BP Pulse Ox 97.0 F L 101 H 18 103/69 97 08/25/18 08:15 08/25/18 08:15 08/25/18 08:15 08/25/18 08:15 08/25/18 08:15 Oxygen Delivery Method [2] Room Air Oxygen Delivery Method [1 ( Room Air Initial Baseline)] Oxygen Delivery Method Room Air Weight: 117.571 kg Body Mass Index (BMI) 34.7 Finger Stick Blood Glucose 107 Intake and Output for Last 24 Hours 08/23/18 08/24/18 08/25/18 23:59 23:59 23:59 Intake Total 1655 / 1655 855 / 1355 776 / 776 Output Total 1175 / 1175 1800 / 1940 390 / 390 Balance 480 / 480 -945 / -585 386 / 386 Microbiology Past 72 Hours 08/20/18 16:20 Gram Stain - Final Fluid - Ascites Body Fluid Culture - Preliminary GPC Poss Enterococcus sp Anaerobic Culture - Final No growth in 5 days. 08/20/18 22:00 Urine Culture - Final Urine, Clean Catch Mixed Gram Positive Organisms 08/20/18 20:05 Blood Culture - Preliminary Blood Culture (Wb) - Pic No growth in 48 hours. 08/20/18 16:40 Blood Culture - Preliminary Blood Culture (Wb) - Left Hand No growth in 48 hours. Laboratory Tests Past 24 Hrs 08/20/18 08/25/18 08/25/18 16:30 05:42 05:42 WBC 27.2 H RBC 4.52 L Hgb 13.9 Hct 41.7 MCV 92.3 MCH 30.8 MCHC 33.3 RDW 14.6 RDW Differential 48.9 H Plt Count 239 MPV 10.5 Neut % (Auto) Not Reportable Absolute Neuts (auto) 22.9 H Absolute Lymphs (auto) 0.00 L Total Counted 100 Neutrophils % (Manual) 64 Band Neutrophils % 20 H Monocytes % (Manual) 6 Eosinophils % (Manual) 10 H Diff Path Review May foll Toxic Granulation 2+ Toxic Vacuolation 2+ Platelet Estimate ADEQUATE RBC Morphology NORM C+C Sodium 127 L Potassium 4.4 Chloride 92 L Carbon Dioxide 20.0 L Anion Gap 15 BUN 88 H Creatinine 2.87 H Estim Creat Clear Calc 31.82 Est GFR (MDRD) Af Amer 29 L Est GFR (MDRD) Non-Af 24 L BUN/Creatinine Ratio 30.7 H Glucose 79 Calcium 8.9 Total Bilirubin 0.90 AST 21 ALT 20 Alkaline Phosphatase 57 Total Protein 5.3 L Albumin 2.0 L Globulin 3.3 Albumin/Globulin Ratio 0.6 L Miscellaneous Test Medical Necessity - Tobacco Use Smoking Status: Former smoker Route of nutrition/ use of supplements: [] Nutritional Intake: [] IV Site: [] Cronin Catheter: [] - Assessment/Plan Antibiotics: [] Assessment/Plan: [] Active and Suspected Problems Ascites (Acute) SBP (spontaneous bacterial peritonitis) (Acute) Severe sepsis (Acute) ARLIN (acute kidney injury) (Acute) severe sepsis with ARLIN, lactic acidosis, and suspected SBP - cont cefepime. Fluid cx neg. Diff dx also includes malignancy, particularly given omental caking seen on CT. Had neg Hep C in 2016. Repeat tap done, cytology pending. Abx stop date for 5 day course today, 08/25/18. Will follow as needed, please call with ?s
[2018-08-25] MEDS: Furosemide 40 MG Tablet PO (10:44)
[2018-08-25] MEDS: Spironolactone 50 MG Tablet PO (10:44)
[2018-08-25] MEDS: Pantoprazole Sodium 40 MG Tablet PO (10:44)
--- NOTE | 2018-08-25 10:59 | CASEMGMT ---
Addendum entered by Shelia Millan 08/25/18 12:04: Pt is discharged. ESEQUIEL faxed all paperwork to TCU, left Parul a message letting her know pt will come to TCU today. ESEQUIEL spoke w/pt, let him know he is approved to go to TCU today. ESEQUIEL asked if he would like SW to tell his family he is going to TCU today. Pt states his daughter is here but eating lunch, he will let her know when she comes back to the room. No further needs, pt to TCU today. ANDREW Bonds Original Note: ESEQUIEL received a call from Parul in TCU that pt has been approved. FRANCIA BondsS
[2018-08-25 11:25] VITALS: PULSE 96
[2018-08-25] MEDS: Metoclopramide 10 MG/2 ML Vial 5 MG IV (11:26)
--- NOTE | 2018-08-25 11:37 | PCM.TXEXTCAR ---
- Diet 08/24/18 10:48 Diet: Regular Diet Is pt able to select menu?: Yes - Routine Orders/Code Status Routine Lab Work: BMP - in 2 days - Wound(s) ABD Wound Type: Puncture - Therapies Physical Therapy: Eval and Treat Occupational Therapy: Eval and Treat - Problem/Diagnosis (1) Malignant ascites Status: Acute Current Visit: Yes (2) suspected lymphoma Status: Acute Current Visit: Yes (3) SBP (spontaneous bacterial peritonitis) Status: Acute Current Visit: Yes (4) ARLIN (acute kidney injury) Status: Acute Current Visit: Yes - Allergies/Procedures Done in Hospital Allergies/Adverse Reactions: Allergies adhesive tape Allergy (Verified 08/22/18 13:24) Rash amoxicillin Allergy (Verified 08/22/18 13:24) Rash levofloxacin Allergy (Verified 08/22/18 13:24) Rash aspirin Adverse Reaction (Verified 08/22/18 13:24) Upset Stomach Penicillins Adverse Reaction (Verified 08/22/18 13:24) Upset Stomach Procedures: Paracentesis - Type of Care/Length of Stay Estimated LOS: Convalescent Care Less Than 30 days Type of Care Needed: Skilled Rehab Potential: Good Prognosis: Good - Additional Orders/Day of Discharge H&P will serve as current which was dated: 08/20/18 Day of Discharge: 08/25/18 - Dietary and Speech Recommendations Dietitian Recommendations/Changes: nutritional services to follow patient - Follow Up Care Primary Care Physician: Veto Lopez DO [Primary Care Provider] -
[2018-08-25 11:55] LABS: Pathologist Review Reviewed
[2018-08-25 13:32] VITALS: BP 99/65; PULSE 97; RESP 18; TEMP 35.8; O2SAT 94
--- NOTE | 2018-08-26 07:55 | DS.PCM_ITS ---
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499 8 cm nonhealing infected radiation ulcer lesion left arm Late effect of radiation (Chronic) T66.xxxS late effect radiation left arm Personal history of lymphoma (Chronic) Z85.72 Personal history of Methicillin resistant Staphylococcus aureus infection (Chronic) Z86.14 TIA (transient ischemic attack) (Chronic) LOGAN (nonalcoholic steatohepatitis) (Chronic) Cirrhosis (Chronic) Hyperlipidemia (Chronic) Mantle cell lymphoma (Chronic) Hospital Course and Treatment Operations: None Procedures: Paracentesis Summary of Care Provided: The patient is a 62 year old M was seen in the emergency room at [facility] with chief complaint of abdominal distention and generalized abdominal discomfort x1 week. Patient has a history of mantle cell lymphoma in the past and has been treated at the [facility] in [place]. Patient states he has an appointment to establish care with a local oncologist in 3 days.. Work-up in the emergency room included a CBC which showed his white count to be elevated to 23.6, sodium is low 126, creatinine was elevated at 2.02 with an elevated BUN of 46. Patient's lactic acid was elevated at 4.1, patient was afebrile, CT of the abdomen and pelvis was not performed in the emergency room as it was done on 08/16/2018 during her previous admission to the hospital-this showed cirrhotic liver with diffuse abdominal ascites and induration of the omentum and scattered subcentimeter omental lymph nodes suggesting omental metastases. Due to abdominal distention and discomfort, paracentesis was performed in the emergency room-a total of 5 L of acetic fluid was removed and sent for culture. Patient was admitted to [place] [address], his labs were monitored, he was placed on antibiotics for suspected spontaneous bacterial peritonitis, she had a repeat CT performed while in the hospital that was unchanged from the last CT done on 08/16/2018 and showed continued omental caking indicative of intraperitoneal neoplasm. Oncology was contacted by phone, they advised obtaining fluid for cytology, they did not feel they would be of benefit in seeing the patient in the hospital. Patient was seen by PT and OT as well as infectious diseases, he remained on IV cefepime during his hospital stay, at the time of his discharge, his ascitic fluid showed no growth. It was recommended the patient go to snf facility due to his debility and he consented. On 08/25/2018, patient was seen and examined: On examination he appeared in good health and spirits. Vital signs as documented. Skin warm and dry and without overt rashes. Neck without JVD. Lungs clear. Heart exam notable for regular rhythm, normal sounds and absence of murmurs, rubs or gallops. Abdomen unremarkable and without evidence of organomegaly, masses, or abdominal aortic enlargement. Extremities nonedematous. Neuro: Cranial nerves II through XII are grossly intact, no focal motor deficits were noted, sensation to light touch and pinprick intact. Psych: Patient is alert and oriented x3, he does not appear anxious or depressed On 08/25/2018, patient was seen and examined and felt to be stable condition for transfer to TCU. Further note: Patient's ascitic fluid culture resulted in Enterococcus faecium, I will follow-up with the patient in TCU for recomm endation of either Zyvox or amoxicillin-patient has a documented allergy to amoxicillin I will need to talk with him concerning this. I talked briefly on the phone with infectious diseases about his culture result. Patient Problems: Active and Suspected Problems Abdominal distention (Acute) - Physical Exam Vital Signs Temp Pulse Resp BP Pulse Ox 96.5 F L 97 18 99/65 94 08/25/18 13:32 08/25/18 13:32 08/25/18 13:32 08/25/18 13:32 08/25/18 13:32 Oxygen Delivery Method [2] Room Air Oxygen Delivery Method [1 ( Room Air Initial Baseline)] Oxygen Delivery Method Room Air Weight: 117.571 kg Body Mass Index (BMI) 34.7 Finger Stick Blood Glucose 107 Intake and Output for Last 24 Hours 08/24/18 08/25/18 08/26/18 23:59 23:59 23:59 Intake Total 855 / 1355 776 / 776 Output Total 1800 / 1940 540 / 540 Balance -945 / -585 236 / 236 Microbiology Past 72 Hours 08/20/18 16:20 Gram Stain - Final Fluid - Ascites Body Fluid Culture - Final Enterococcus faecium Anaerobic Culture - Final No growth in 5 days. 08/20/18 22:00 Urine Culture - Final Urine, Clean Catch Mixed Gram Positive Organisms 08/20/18 20:05 Blood Culture - Preliminary Blood Culture (Wb) - Pic No growth in 48 hours. 08/20/18 16:40 Blood Culture - Preliminary Blood Culture (Wb) - Left Hand No growth in 48 hours. Laboratory Tests Past 24 Hrs 08/23/18 08/25/18 10:05 05:42 Diff Path Review Pending Reviewed Home Medications: Medications to take at Discharge Pantoprazole Sodium [Protonix] 40 mg PO DAILY 02/28/13 ALPRAZolam [Xanax] 0.5 mg PO QHS 08/25/18 Atorvastatin Calcium [Lipitor] 80 mg PO QHS 08/25/18 Mag Hydrox/Al Hydrox/Simeth [Mylanta II] 30 ml PO Q6H PRN PRN udc 08/25/18 Metoclopramide HCl [Reglan] 5 mg PO TID 08/25/18 Oxycodone [Oxyir] 5 mg PO Q4H PRN PRN 7 Days #20 tab 08/25/18 Spironolactone [Aldactone] 50 mg PO BID 08/25/18 proMETHazine tablet [Phenergan tablet] 50 mg PO Q4H PRN PRN tab 08/25/18 Following Prescrptions Were Given to Patient: Oxycodone [Oxyir] 5 mg PO Q4H PRN PRN 7 Days #20 tab PRN Reason: Moderate Pain (4-6/10) Prescription Printed Primary Care Physician: Veto Lopez DO [Primary Care Provider] - Disposition: Halfway facility Minutes spent on discharge:: 32 Patient Condition:: Stable Medical Necessity - Tobacco Use Smoking Status: Former smoker Meaningful Use Info Meaningful Use Diagnoses (Choose all that apply): None applicable Code Visit Inpatient E&M: 99137 Disch Hosp
[2018-08-26 14:36] LABS: Pathologist Review May foll
[2018-08-29 12:53] LABS: Amylase Body Fluid 6 U/L (.); pH, Body Fluid 11254 7.1 (Not Estab.)
== END 2018-08-25 14:05 | disposition skilled nursing facility (03) | DRG 840 ==
LOC: ED 13:30 → MS3 15:27 → ED 16:12 → ICU 16:12 → MS3 08-21 09:49
PROVIDERS: Admitting Provider Internal Medicine; Emergency Provider Physician Assistant; Family Provider Family Medicine; PCP Family Medicine; Visit Provider Internal Medicine
DX: C83.10 Mantle cell lymphoma, unspecified site (principal); A41.81 Sepsis due to Enterococcus; K65.2 Spontaneous bacterial peritonitis; R65.20 Severe sepsis without septic shock; N17.9 Acute kidney failure, unspecified; R18.8 Other ascites; E87.1 Hypo-osmolality and hyponatremia; K74.60 Unspecified cirrhosis of liver; R53.81 Other malaise; Z87.891 Personal history of nicotine dependence; E78.5 Hyperlipidemia, unspecified; Z68.36 Body mass index [BMI] 36.0-36.9, adult; E66.01 Morbid (severe) obesity due to excess calories; Z88.0 Allergy status to penicillin; H92.02 Otalgia, left ear; K75.81 Nonalcoholic steatohepatitis (NASH); K21.9 Gastro-esophageal reflux disease without esophagitis
CPT/HCPCS: 36415; 36569; 49083; 74176; 80048; 80053; 81002; 82040; 82150; 82945; 83605; 83615; 83690; 83735; 83986; 84157; 85025; 85610; 85730; 87040; 87070; 87075; 87077; 87086; 87088; 87186; 87205; 88108; 88305; 88313; 88341; 88342; 89050; 93005; 97110; 97163; 97166; 97530; 97802; 99285; J7030; J7040; P9047; A4216; J1940; J2405

== ENCOUNTER 2018-08-25 14:10 | Inpatient (IN) | payer OTHER, MEDICARE, SELFPAY ==
[2018-08-20 17:42] VITALS: BMI 34.7
[2018-08-25 14:36] VITALS: BP 95/52; PULSE 96; RESP 18; TEMP 36.4; O2SAT 95; BMI 34.5; BMI 34.6
--- NOTE | 2018-08-25 15:11 | NURSING ---
Patient admitted to room 6 from [facility] via bed. Oriented to room and call light system explained.
[2018-08-25] MEDS: Metoclopramide 5 MG TABLET PO (17:49)
[2018-08-25] MEDS: Spironolactone 50 MG Tablet PO (17:49)
--- NOTE | 2018-08-25 19:15 | RAD_ITS ---
STUDY: X-RAY CHEST REASON FOR EXAM: Male, 62 years old. Shortness of breath TECHNIQUE: Frontal view of the chest COMPARISON: X-ray chest August 12, 2018 FINDINGS: There is a right-sided PICC line with the tip at the cavoatrial junction. The lungs are clear. There are no pleural effusions. There is no pneumothorax. The heart is normal in size. The visualized osseous structures are within normal limits. RAD/Chest 1 View IMPRESSION: No acute thoracic pathology. Electronically Signed: Rocky Castaneda, at 20:26 EDT Tel , Service support ,
--- NOTE | 2018-08-25 20:00 | RAD_ITS ---
STUDY: X-RAY - ABDOMEN/PELVIS REASON FOR EXAM: Male, 62 years old. Abdominal distention TECHNIQUE: Frontal views of the abdomen obtained COMPARISON: CT abdomen and pelvis August 21, 2018 FINDINGS: There is mild small bowel gas distention in the left hemiabdomen. Stool and air are present within the colon. The visualized osseous structures are within normal limits. RAD/Abdomen Single View IMPRESSION: Mild small bowel gaseous distention in the left hemiabdomen, possibly due to focal ileus. Correlate clinically. Electronically Signed: Rocky Castaneda, at 20:18 EDT Tel , Service support ,
[2018-08-25] MEDS: 0.9% NaCl PICC Flush IV (20:19)
--- NOTE | 2018-08-25 20:42 | NURSING ---
This nurse and FOOD CONSULTANT assisted pt to xray. When laying pt flat for KUB pt become nauseas and diaphoretic. Pt sat up and stated to feel better a little. Pt brought back to the unit. O2 98% RA. 2L O2 applied for comfort. BP 91/52 HR 97 RR 22 Temp 98.1 orally. Pt abdomen distended, firm and tender. Bowel sounds hypoactive. Pt complaint of feeling weak, SOB and miserable. Dr. Kendall updated on KUB, CXR and pts condition. Continue to monitor.
[2018-08-25] MEDS: proMETHazine 25 MG Tablet 50 MG PO (20:43)
[2018-08-25] MEDS: Atorvastatin Calcium 80 MG Tablet PO (20:46)
[2018-08-25 20:47] VITALS: BP 91/52; PULSE 97; RESP 22; TEMP 36.7; O2SAT 98
[2018-08-25] MEDS: ALPRAZolam 0.5 MG Tablet PO (20:50)
--- NOTE | 2018-08-25 21:28 | HP.PCM_ITS ---
Problem List (1) Abdominal distention Status: Acute (2) LOGAN (nonalcoholic steatohepatitis) Status: Chronic (3) Cirrhosis Status: Chronic (4) Hyperlipidemia Status: Chronic (5) Mantle cell lymphoma Status: Chronic (6) GERD (gastroesophageal reflux disease) Status: Chronic (7) TIA (transient ischemic attack) Status: Chronic (8) Ascites Status: Acute (9) Severe sepsis Status: Acute (10) ARLIN (acute kidney injury) Status: Acute (11) Malignant ascites Status: Acute (12) suspected lymphoma Status: Acute History of Present Illness Date of Admission: 08/25/18 Chief Complaint: Here for rehabilitation, strengthening, prior to discharge home with spouse. The patient is a 62 year old Male with below past medical history presented to [facility] Emergency Department with abdominal distention x 1 week. 08/20/2018 EKG sinus tachycardia, otherwise normal. Mantle cell lymphoma, treated with chemotherapy, radiation, stem cell transplant. Recent admission for TIA, on aspirin, plavix. WBC 23, Sodium 126, renal function worsening. Lactic Acid 4.5. Paracentesis removed 5 liters of fluid. 08/20/2018 Admit to Hospital. Cefepime for presumed SBP. IV fluids, albumin for sepsis. IV fluids for acute kidney injury. Concern for mantle cell lymphoma recurrence. 08/21/2018 CT abdomen/pelvis omentum caking suspicious for metastatic disease. Mesenteric masses. Cirrhosis, ascites. 08/22/2018 Dr. uHntley recommended continuing Cefepime for SBP. Rule out cancer. 08/23/2018 Ultrasound guided paracentesis removed 4 liters of fluid. Ascites fluid cytology pending. Finish antibiotics for SBP. Monitor acute kidney injury. 08/25/2018 Admit to TCU with debility, here for rehabilitation, strengthening, prior to discharge home with spouse. Resident short of breath, uncomfortable abdominal distention. Schedule ultrasound guided paracentesis tomorrow, then every Wednesday, every . Schedule appointment with Dr. Moreno to figure out where to go from here regarding probable recurrent Mantle Cell Lymphoma. Consider end of life planning, prognosis appears poor. 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) L59.9 Non-healing ulcer of upper extremity (Chronic) L98.499 8 cm nonhealing infected radiation ulcer lesion left arm Late effect of radiation (Chronic) T66.xxxS late effect radiation left arm Personal history of lymphoma (Chronic) Z85.72 Personal history of Methicillin resistant Staphylococcus aureus infection (Chronic) Z86.14 TIA (transient ischemic attack) (Chronic) LOGAN (nonalcoholic steatohepatitis) (Chronic) Cirrhosis (Chronic) Hyperlipidemia (Chronic) Mantle cell lymphoma (Chronic) Allergies adhesive tape Allergy (Verified 08/22/18 13:24) Rash amoxicillin Allergy (Verified 08/22/18 13:24) Rash levofloxacin Allergy (Verified 08/22/18 13:24) Rash aspirin Adverse Reaction (Verified 08/22/18 13:24) Upset Stomach Penicillins Adverse Reaction (Verified 08/22/18 13:24) Upset Stomach Home Medications: Ambulatory Orders Medication Instructions Recorded Pantoprazole Sodium [Protonix] 40 mg PO DAILY 02/28/13 ALPRAZolam [Xanax] 0.5 mg PO QHS 08/25/18 Atorvastatin Calcium [Lipitor] 80 mg PO QHS 08/25/18 Mag Hydrox/Al Hydrox/Simeth 30 ml PO Q6H PRN PRN udc 08/25/18 [Mylanta II] Metoclopramide HCl [Reglan] 5 mg PO TID 08/25/18 Oxycodone [Oxyir] 5 mg PO Q4H PRN PRN 7 Days #20 tab 08/25/18 Spironolactone [Aldactone] 50 mg PO BID 08/25/18 proMETHazine tablet [Phenergan 50 mg PO Q4H PRN PRN tab 08/25/18 tablet] Surgical History: Surgical History (Last Updated 08/22/18 @ 13:24 by Alina Poe) S/P hip replacement Z96.649 right Surgical History: - Psychiatric History: No pertinent psych hx Lives: Spouse/ Significant Other Smoking Status: Former smoker Tobacco Use: Non-smoker Alcohol: None Drugs: None - *Family History Maternal History Items: No pertinent history Paternal History Items: Cancer, Diabetes, - Review of Systems Constitutional: Denies: Chills, Fever, Weight Change HEENT: Denies: Head Aches, Sinus Congestion, Sinus Drainage Cardiovascular: Denies: Chest Pain, Palpitations Respiratory: Denies: Cough, Shortness of breath at rest, Sputum production Gastrointestinal: Reports: - - Abdominal distention.. Denies: Abdominal Pain, Nausea, Vomiting Genitourinary: Denies: Dysuria Musculoskeletal: Denies: Joint Pain, Joint Tenderness Skin: Denies: Rash, Wounds Neurological: Denies: Numbness, Tingling, Focal weakness Psychiatric: Denies: Anxiety, Depression, Homicidal Ideations, Suicidal Ideations Hematologic/ Lymphatic: Denies: Easy Bruising, Easy Bleeding VTE Information - Inpt Only VTE Present on Admission: No VTE Mechan Device Prophylaxis: Knee High ALEXI Hose VTE Pharm Prophylaxis ordered?: No Reason prophylaxis not ordered:: Medical Contraindication Patient Problems: Active and Suspected Problems Abdominal distention (Acute) - Physical Exam General: Alert, Oriented x3, Cooperative HEENT: Atraumatic, PERRLA, EOMI, Normocephalic Neck: Supple, No JVD, Negative Carotid Bruits Lungs: Clear to auscultation, Normal air movement Cardiovascular: Regular rate, No murmurs Abdomen: Bowel Sounds Present, Distended, - - Diffuse abdominal tenderness, firm. Extremities: No edema, Capillary Refill Less than 3 Seconds Skin: No rashes, No breakdown Musculoskeletal: No Tenderness to Palpation of Joints or Extremities Neurological: Cranial nerves II-XII grossly intact Psych/Mental Status: Normal Affect, Appropriate Vital Signs Temp Pulse Resp BP Pulse Ox 98.1 F 97 22 H 91/52 L 98 08/25/18 20:47 08/25/18 20:47 08/25/18 20:47 08/25/18 20:47 08/25/18 20:47 Oxygen Flow Rate (L/min) 2 Oxygen Delivery Method Nasal Cannula Weight: 122.062 kg Body Mass Index (BMI) 34.5 Finger Stick Blood Glucose 107 Intake and Output for Last 24 Hours 08/23/18 08/24/18 08/25/18 23:59 23:59 23:59 Intake Total 120 / 120 Balance 120 / 120 Assessment/Plan All Active Problems Speech disturbance (Resolved) Ascites (Acute) SBP (spontaneous bacterial peritonitis) (Acute) Severe sepsis (Acute) ARLIN (acute kidney injury) (Acute) Malignant ascites (Acute) suspected lymphoma (Acute) Abdominal distention (Acute) 62 year old male with below past medical history hospitalized for abdominal distention due to ascites from cirrhosis, complicated by severe sepsis from SBP, hyponatremia, acute kidney injury, concern for mantle cell lymphoma recurrence, admitted to TCU with debility, here for rehabilitation, strengthening, prior to discharge home with spouse. * Debility - PT/OT. * Pain - Tylenol 1000MG Q8H PRN mild pain, Oxycodone 5MG Q4H PRN moderate pain. * Bowel - Miralax 17GM daily, Senna/colace 2 tablets BID, Dulcolax 10MG daily PRN, Golytely 1 Liter Po x 1 dose (stool noted in ascending colon on X-ray). * Pneumonia - Administer Prevnar 13 and/or Pneumovax 23 as necessary. * DVT prophylaxis - Hold due to need for paracentesis. * Insomnia - Xanax 0.5MG QHS. * Hyperlipidemia - Lower Atorvastatin from 80MG to 40MG QHS, at this point high intensity statin is unlikely to benefit. * Gastric burning - Mylanta 30ML Q6H PRN. * Ileus - Reglan 10MG QACHS. * GERD - Pantoprazole 40MG daily. * Nausea - Phenergan 50MG Q4H PRN. * Gas - Simethicone 80MG TID. * Ascites - Aldactone 50MG BID, schedule ultrasound guided paracentesis tomorrow, then every Wednesday, every . * Acute kidney injury - Monitor renal function. * ?Mantle Cell Lymphoma recurrence - Schedule appointment with Dr. Moreno as outpatient.
[2018-08-25] MEDS: Electrolyte Solution/Peg's 4000 ML 1000 ML PO (22:40)
--- NOTE | 2018-08-25 23:08 | NURSING ---
Code status discussed with pt. Pt wishes to be a DNRCCA. MARY Schroeder present in room to refugio. Paperwork signed, purple braabdirashidet applied.
[2018-08-25] MEDS: Metoclopramide 10 MG Tablet PO (23:20)
[2018-08-26 01:00] VITALS: BP 92/57; PULSE 100; RESP 22; O2SAT 99
[2018-08-26] MEDS: oxyCODONE 5 MG Tablet PO ×2 (02:13→14:18)
[2018-08-26 04:52] LABS: Hematocrit 39.3 % (40-54); Hemoglobin 13.2 g/dl (13.0-16.5); Mean Corp Hgb Conc 33.6 g/gl (32-36); Mean Corpuscular Hgb 30.6 pg (27.0-32.0); Mean Corpuscular Volume 91.2 fL (80-94); Mean Platelet Vol. 10.1 fl (6.2-12.0); Platelet Count 210 K/mm3 (150-450); RBC Distribution Width CV 14.5 % (11.6-14.6); RBC Distribution Width SD 48.9 fl (35.1-43.9); Red Blood Count 4.31 M/mm3 (4.6-6.2); White Blood Count 23.6 K/mm3 (4.4-11.0)
[2018-08-26 05:02] LABS: International Normalized Ratio 1.3; Prothrombin Time (Protime)PT. 16.4 SECONDS (11.7-14.9)
[2018-08-26] MEDS: Polyethylene Glycol 3350 17 GM PACKET PO (05:06)
[2018-08-26] MEDS: Metoclopramide 10 MG Tablet PO ×2 (05:07→10:39)
[2018-08-26] MEDS: Senna/Docusate Sodium 1 Tablet 2 TABLET PO (05:07)
[2018-08-26] MEDS: Pantoprazole Sodium 40 MG Tablet PO (05:07)
[2018-08-26] MEDS: Spironolactone 50 MG Tablet PO (05:07)
[2018-08-26 05:22] LABS: Differential Indicated MANUAL DIFF; POSITIVE COUNT NO; POSITIVE DIFFERENTIAL YES; POSITIVE MORPHOLOGY YES
[2018-08-26 05:30] LABS: Anion Gap 16 (5-15); BUN 109 mg/dL (7-18); BUN/Creat Ratio 30.1 RATIO (10-20); Calcium,Total 9.2 mg/dL (8.5-10.1); Chloride 91 mmol/L (98-107); Creatinine, Serum 3.62 mg/dL (0.70-1.30); EST Glomerular Filtration Rate 18 mL/min (>60); Est Glom Filt Rate - Afr Amer 22 mL/min (>60); Estimated Creatinine Clearance 25.23 ml/min; Glucose 89 mg/dL (74-106); Potassium 4.8 mmol/L (3.5-5.1); Sodium Level 127 mmol/L (136-145)
[2018-08-26 05:36] LABS: Basophil 1 % (0-1); Eosinophil 7 % (0-5); Lymphocyte 4 % (19-41); Monocyte 7 % (0-10); Neutrophil-Band 13 % (0-5); Neutrophil-Segmented 68 % (47-70); Total Cells Counted 100 (MANUAL DIFF)
[2018-08-26 05:39] LABS: Absolute Lymphocyte Count 0.94 X10^3/ul (0.83-4.51); Absolute Neutrophil Count 19.1 X10^3/uL (2.0-7.7)
[2018-08-26] MEDS: 0.9% Normal Saline 1,000 ML 999 ML IV (06:40)
--- NOTE | 2018-08-26 06:42 | NURSING ---
Dr Kendall aware of critical BUN 109. N.O. entered.
--- NOTE | 2018-08-26 06:54 | NURSING ---
16F Cronin inserted per order. Pt tolerated well. Clear yellow urine.
--- NOTE | 2018-08-26 08:00 | US_ITS ---
STUDY: ABDOMINAL ULTRASOUND REASON FOR VISIT: Male, 62 years old. Ascites TECHNIQUE: Ultrasound evaluation of the 4 quadrants was performed with real-time and static wang-scale imaging. TECHNICAL QUALITY: Adequate. COMPARISON: None. FINDINGS: Ultrasound images of all 4 quadrants demonstrate diffuse ascites, small to moderate in volume. US/Abdomen Limited IMPRESSION: Mild to moderate diffuse ascites. Electronically Signed: Shadi Toribio MD at 17:20 EDT Tel , Service support ,
--- NOTE | 2018-08-26 08:24 | NURSING ---
Radiology US called and pt needs to be down there at 1230 for paracentesis. notified via phone call & updated, will be in
--- NOTE | 2018-08-26 09:06 | NURSING ---
Dr Watters here and assessed pt, new order for zyvox po 600mg po BID [address] malhotra updated.
--- NOTE | 2018-08-26 09:27 | NURSING ---
Addendum entered by Julissa Novoa 08/26/18 09:33: returned call with times/dates: please see communication order. Original Note: tried scheduling US guided paracentesis QMO & Thur, they will call back today with times.
[2018-08-26 10:00] VITALS: O2SAT 98
[2018-08-26] MEDS: Tuberculin,Purif.prot.deriv. 50 TU/ML Vial 5 ML ID (10:35)
[2018-08-26] MEDS: Linezolid 600 MG Tablet PO (10:40)
--- NOTE | 2018-08-26 11:56 | CHAPLAIN ---
Type of Pastoral Visit _x__ Initial Visit ___ Follow-up Visit ___ On-call Visit ___ General Patient Visit ___ Spiritual Assessment ___ Family Conference ___ Bereavement ___ Rapid Response ___ Code Blue ___ Other (describe below) Pastoral Care Referral From _x__ Patient ___ Family ___ Nurse ___ Physician ___ Dormitory Maid ___ Under Ground Miner ___ Other (describe below) Sacrament/Intervention ___ Active listening ___ Anointing ___ Anglican ___ Bereavement ___ Communion ___ Vilma exploration ___ ___ Life review ___ Prayer ___ Reconciliation ___ Sacrament of Sick _x__ Supportive presence ___ Wedding ___ Other (describe below) Pastoral Comments patient was resting and prefers to sleep if possible; family members in room and they agree pt needs sleep at this time; return visits are welcome by family
[2018-08-26 13:28] LABS: Pathologist Review Reviewed
[2018-08-26 14:16] VITALS: BP 103/58; PULSE 98; RESP 20; TEMP 36.2; O2SAT 98
--- NOTE | 2018-08-26 14:21 | NURSING ---
Radiology reported that not enough fluid to remove, Dr Kendall updated & spoke with over phone regarding inpt hospice, pt & agreeable to hospice. New order to start PRN roxanol for pain. TIM Farah notified Hospice, awaiting there arrival.
--- NOTE | 2018-08-26 14:35 | DCINST_ITS ---
- Discharge Diagnoses Current Active Problems: Current Active and Chronic Problems Abdominal distention (Acute) LOGAN (nonalcoholic steatohepatitis) (Chronic) Cirrhosis (Chronic) Hyperlipidemia (Chronic) Mantle cell lymphoma (Chronic) You will use the following diet at home:: No restrictions, Regular Your food should be the consistency of: Regular Your liquids should be the consistency of: Regular/Thin Discharge Activity: Return to Normal Activity, No Restrictions, May Shower, Use Walker Weight Bearing Status: Weight bearing as tolerated Call your doctor if you observe: Fever of 101 or Higher, Inability to urinate, Inability to have a bowel movement, Shortness of breath, Chest pain, Uncontrolled pain Allergies/Adverse Reactions: Allergies adhesive tape Allergy (Verified 08/22/18 13:24) Rash amoxicillin Allergy (Verified 08/22/18 13:24) Rash levofloxacin Allergy (Verified 08/22/18 13:24) Rash aspirin Adverse Reaction (Verified 08/22/18 13:24) Upset Stomach Penicillins Adverse Reaction (Verified 08/22/18 13:24) Upset Stomach Medications to take at Discharge Pantoprazole Sodium [Protonix] 40 mg PO DAILY 02/28/13 ALPRAZolam [Xanax] 0.5 mg PO QHS 08/25/18 Metoclopramide HCl [Reglan] 5 mg PO TID 08/25/18 Oxycodone [Oxyir] 5 mg PO Q4H PRN PRN 7 Days #20 tab 08/25/18 proMETHazine tablet [Phenergan tablet] 50 mg PO Q4H PRN PRN tab 08/25/18 Acetaminophen [Tylenol] 1,000 mg PO Q8H PRN PRN tab 08/26/18 Polyethylene Glycol 3350 [Miralax] 17 gm PO DAILY packet 08/26/18 Senna/Docusate Sodium [Senokot-S] 2 tab PO BID tab 08/26/18 Primary Care Physician: Veto Lopez DO [Primary Care Provider] - Please follow up with your Primary Care Physician in: PRN. Test Results: Test results from this visit will be discussed in further detail at your follow- up appointment, if applicable. Please Follow Up With: Dr. Lopez When: PRN. Please Follow Up With: Dr. Rodriguez When: Cancel. Proposed Discharge Date: 08/26/18
--- NOTE | 2018-08-26 14:37 | PCM.DC.SUM ---
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) L59.9 Non-healing ulcer of upper extremity (Chronic) L98.499 8 cm nonhealing infected radiation ulcer lesion left arm Late effect of radiation (Chronic) T66.xxxS late effect radiation left arm Personal history of lymphoma (Chronic) Z85.72 Personal history of Methicillin resistant Staphylococcus aureus infection (Chronic) Z86.14 TIA (transient ischemic attack) (Chronic) LOGAN (nonalcoholic steatohepatitis) (Chronic) Cirrhosis (Chronic) Hyperlipidemia (Chronic) Mantle cell lymphoma (Chronic) Hospital Course and Treatment Imaging Results: 08/26/18 08:00 Abdomen Limited [US] Routine Operations: None Procedures: None Summary of Care Provided: The patient is a 62 year old Male with below past medical history hospitalized for abdominal distention due to ascites from cirrhosis, complicated by severe sepsis from SBP, hyponatremia, acute kidney injury, concern for mantle cell lymphoma recurrence, admitted to TCU with debility, here for rehabilitation, strengthening, prior to discharge home with spouse. 08/25/2018 Resident short of breath, abdominal pain, Golytely 1 Liter PO x 1 given, good results. 08/26/2018 Ultrasound guided paracentesis attempted, no fluid was available for removal. I had discussion with spouse, resident, resident's daughter regarding what is going on. Resident treated aggressively for Mantle Cell Lymphoma with chemotherapy, total body radiation, stem cell transplant, in 2007 at [facility], at that time, his oncologist told resident the Mantle Cell Lymphoma would recur. I let resident/family know he is dying of recurrent Mantle Cell Lymphoma, along with cirrhosis, acute kidney failure. Resident wants to at inpatient hospice facility. Discharge to inpatient hospice facility for end of life care. Patient Problems: Active and Suspected Problems Abdominal distention (Acute) - Physical Exam Vital Signs Temp Pulse Resp BP Pulse Ox 97.2 F L 98 20 H 103/58 L 98 08/26/18 14:16 08/26/18 14:16 08/26/18 14:16 08/26/18 14:16 08/26/18 14:16 Oxygen Flow Rate (L/min) 2 Oxygen Delivery Method Nasal Cannula Weight: 122.062 kg Body Mass Index (BMI) 34.5 Finger Stick Blood Glucose 107 Intake and Output for Last 24 Hours 08/24/18 08/25/18 08/26/18 23:59 23:59 23:59 Intake Total 1360 / 1360 360 / 360 Output Total 400 / 400 Balance 1360 / 1360 -40 / -40 Laboratory Tests Past 24 Hrs 08/26/18 08/26/18 08/26/18 04:40 04:40 04:40 WBC 23.6 H RBC 4.31 L Hgb 13.2 Hct 39.3 L MCV 91.2 MCH 30.6 MCHC 33.6 RDW 14.5 RDW Differential 48.9 H Plt Count 210 MPV 10.1 Neut % (Auto) Not Reportable Absolute Neuts (auto) 19.1 H Absolute Lymphs (auto) 0.94 Total Counted 100 Neutrophils % (Manual) 68 Band Neutrophils % 13 H Lymphocytes % (Manual) 4 L Monocytes % (Manual) 7 Eosinophils % (Manual) 7 H Basophils % (Manual) 1 Diff Path Review Reviewed PT 16.4 H INR 1.3 Sodium 127 L Potassium 4.8 Chloride 91 L Carbon Dioxide 20.0 L Anion Gap 16 H BUN 109 H* Creatinine 3.62 H Estim Creat Clear Calc 25.23 Est GFR (MDRD) Af Amer 22 L Est GFR (MDRD) Non-Af 18 L BUN/Creatinine Ratio 30.1 H Glucose 89 Calcium 9.2 Discharge Diet: No Restrictions Discharge Activity: Return to Normal Activity, No Restrictions, May Shower, Use Walker Weight Bearing Status: Weight bearing as tolerated Call your doctor if you observe: Fever of 101 or Higher, Inability to urinate, Inability to have a bowel movement, Shortness of breath, Chest pain, Uncontrolled pain Home Medications: Medications to take at Discharge Pantoprazole Sodium [Protonix] 40 mg PO DAILY 02/28/13 ALPRAZolam [Xanax] 0.5 mg PO QHS 08/25/18 Metoclopramide HCl [Reglan] 5 mg PO TID 08/25/18 Oxycodone [Oxyir] 5 mg PO Q4H PRN PRN 7 Days #20 tab 08/25/18 proMETHazine tablet [Phenergan tablet] 50 mg PO Q4H PRN PRN tab 08/25/18 Acetaminophen [Tylenol] 1,000 mg PO Q8H PRN PRN tab 08/26/18 Polyethylene Glycol 3350 [Miralax] 17 gm PO DAILY packet 08/26/18 Senna/Docusate Sodium [Senokot-S] 2 tab PO BID tab 08/26/18 Primary Care Physician: Veto Lopez DO [Primary Care Provider] - Please follow up with your Primary Care Physician in: PRN. Please Follow Up With: Dr. Lopez When: PRN. Please Follow Up With: Dr. Rodriguez When: Cancel. Disposition: Hospice Medical Facility Minutes spent on discharge:: 35 Patient Condition:: Poor Medical Necessity - Tobacco Use Smoking Status: Former smoker Tobacco Use: Non-smoker Meaningful Use Info Meaningful Use Diagnoses (Choose all that apply): None applicable
--- NOTE | 2018-08-26 14:48 | CASEMGMT ---
Social Work Patient significantly declining. Physician in to see pt and recommending inpatient hospice today. Family and pt agrees. Referral to [facility]. Awaiting confirmation to transfer 08/26. MARK FloydW
[2018-08-26] MEDS: morphine (oral solution) 10MG/0.5ML Syringe 10 MG SL ×2 (15:47→16:43)
[2018-08-26 16:00] VITALS: BP 92/56; PULSE 95; RESP 20; TEMP 35.4; O2SAT 97
--- NOTE | 2018-08-26 16:24 | NURSING ---
Scheduled 1600 Reglan not given d/t family stating pt c/o having a hard time swallowing. Julissa HERNANDEZ aware.
--- NOTE | 2018-08-26 16:55 | NURSING ---
Hospice nurse requesting pt be given medication for pain on scale 8/10. PRN 10mg Roxanol given at 1547.
--- NOTE | 2018-08-26 16:55 | NURSING ---
Family stating pt c/o abdominal pressure. Pt c/o pain on scale 9/10 at this time. PRN Roxanol 10mg given at 1643.
--- NOTE | 2018-08-26 17:09 | NURSING ---
Report called to [facility] at [facility].
--- NOTE | 2018-08-29 11:26 | CASEMGMT ---
Social Work Pt transferred to inpatient hospice. Unable to completed MDS assessment d/t condition. Sofi Guardado, [employer]ARM[employer] SEC[employer]
--- NOTE | 2018-09-05 10:40 | CASEMGMT ---
Insurance Insurance notified of pt d/c on 08/26/18 to inpatient hospice unit. Auth #[id number] TIM Paniagua
--- NOTE | 2018-09-06 14:16 | MDS.RN ---
Information for the mds was obtained from review of the clinical record, interview of resident, staff, and direct observation of resident's care.
== END 2018-08-26 17:00 | disposition hospice, inpatient (51) | DRG 948 ==
PROVIDERS: Admitting Provider Family Medicine Geriatric Medicine; Family Provider Family Medicine; PCP Family Medicine; Visit Provider Family Medicine Geriatric Medicine
DX: R53.81 Other malaise (principal); C83.10 Mantle cell lymphoma, unspecified site; K56.7 Ileus, unspecified; N17.9 Acute kidney failure, unspecified; R18.0 Malignant ascites; Z94.84 Stem cells transplant status; E78.5 Hyperlipidemia, unspecified; K21.9 Gastro-esophageal reflux disease without esophagitis; K75.81 Nonalcoholic steatohepatitis (NASH); K74.60 Unspecified cirrhosis of liver; Z92.21 Personal history of antineoplastic chemotherapy; Z92.3 Personal history of irradiation; Z86.14 Personal history of Methicillin resistant Staphylococcus aureus infection; Z86.73 Personal history of transient ischemic attack (TIA), and cerebral infarction without residual deficits; Z87.891 Personal history of nicotine dependence
CPT/HCPCS: 71045; 74018; 76705; 80048; 85025; 85610; 97162; 97166; 97802; J7030; A4216